=== PATIENT | male | born 1950 | race African-American/Black ===

== ENCOUNTER 2016-11-22 20:00 | Outpatient (CLI) | payer MEDICARE ==
[~2016-11-22 20:00] MED LIST: AMLO10TA; ATOR20TA66; LISI40TA; LOSA50TA6; NAPR550T2; PRED20TA PO
== END 2016-11-23 06:15 | disposition home or self-care (01) ==
LOC: SLEEP 20:00
PROVIDERS: ATTEND Family Medicine
DX: G47.33 Obstructive sleep apnea (adult) (pediatric) (principal); I10 Essential (primary) hypertension
CPT/HCPCS: 95811

== ENCOUNTER 2016-12-07 07:26 | Outpatient (CLI) | payer MEDICARE ==
[~2016-12-07] VITALS: Ht 175.3 cm; Wt 120.2 kg
[2016-12-07] MEDS ORDERED: BUPIVACAINE 0.25% 30 ML (SENSORCAINE) VIAL ONE (07:29)
[2016-12-07] MEDS ORDERED: TRIAMCINOLONE ACET (KENALOG-40) 40 MG/ML 1 ML VIAL ONE (07:29)
[2016-12-07 07:38] VITALS: BP 133/88
[2016-12-07 08:11] VITALS: BP 132/84
--- NOTE | 2016-12-07 12:40 | Pain Medicine-Procedure ---
Procedure Pre-Op/Post-Op Diagnosis Diagnosis: disc disorder with radiculopathy, lumbar Indications for Operation Low back pain Attending Surgeon Alexus Procedure Date of Service: Dec 07, 2016 Procedure: Lumbar Epidural Steroid Injection at the L2-L3 level under Fluoroscopic Guidance Procedure: Patient was identified in the holding area. After risks, benefits, and alternatives were discussed with the patient, informed consent was obtained. Patient was brought to the fluoroscopy suite and placed prone on the procedure room table. A time out was performed. Vital signs were monitored throughout the procedure. The patients low back was prepped and draped in the usual sterile fashion. The patients skin was anesthetized using 2% Lidocaine. A Tuohy needle was inserted and advanced to the L2-L3 epidural space under fluoroscopic guidance using the loss of resistance technique and intermittent projection of fluoroscopy. There was no paresthesia with needle placement. The needle position was confirmed in both the AP and lateral view. After negative aspiration 2ml of contrast was injected under live fluoroscopy which showed good spread of the contrast in the epidural space at the appropriate level, there was no intravascular or subarachnoid spread. Again, after negative aspiration for heme or CSF, 2 ml of 0.25% Bupivicaine, 2ml of preservative free normal saline, and 80mg of Kenalog was injected. The needle was removed and a sterile bandage was placed and the patient was transferred to the recovery area in stable condition. After a brief period of observation, patient was discharged to home with no new neurological deficits and no apparent complications. Complications None SABINO ESCOBEDO MD Dec 07, 2016 12:40 pm
== END 2016-12-07 08:12 | disposition home or self-care (01) ==
LOC: CARD 07:26
PROVIDERS: ATTEND Pain Medicine Pain Medicine
DX: M51.16 Intervertebral disc disorders with radiculopathy, lumbar region (principal); M96.1 Postlaminectomy syndrome, not elsewhere classified; Z79.899 Other long term (current) drug therapy
CPT/HCPCS: 62323

== ENCOUNTER 2017-05-16 12:45 | Outpatient (CLI) | payer MEDICARE ==
[~2017-05-16] VITALS: Ht 172.7 cm; Wt 115.7 kg
[2017-05-16 13:37] VITALS: BP 147/79
[2017-05-16] MEDS ORDERED: methylPREDNISolone 80 MG/ML (DEPO MEDROL) VIAL ONE (13:42)
[2017-05-16 14:01] VITALS: BP 159/99
--- NOTE | 2017-05-23 17:54 | OPERATIVE REPORT ---
DATE OF SERVICE: 05/16/2017 DIAGNOSIS: Lumbar spondylosis. PROCEDURE: Fluoroscopic-guided facet medial branch block, L2-L5, left-sided. PROCEDURE IN DETAIL: After obtaining informed consent from the patient, the patient's chart was reviewed. The patient was then brought to the procedure room and placed in prone position. Time-out was performed. The area and the left neck, upper back, lower back was prepped with antiseptic solution and under fluoroscopic guidance, the patient's L2-L5 area was examined and the facet joints listed above were identified. L2-L5 was identified under fluoroscopy. A 22-gauge 3-1/2 inch spinal needle was inserted and advanced under fluoroscopy down to the area where the pedicle and the transverse process meet and approximately 1 mL of 1% lidocaine was injected at this level. This was then repeated for the remainder of the levels stated above. Afterwards, the needle was removed. Band-Aids were applied to all sites and the patient tolerated the procedure well and was taken to the recovery area in stable condition. COMPLICATIONS: None. Job ID: [id number] DocumentID: [id number] Dictated Date: 05/21/2017 13:16:43 Pet Care Worker Date: 05/22/2017 02:11:06 Dictated By: YESSICA EDWARDS DO
== END 2017-05-16 14:03 | disposition home or self-care (01) ==
LOC: CARD 12:45
PROVIDERS: ATTEND Pain Medicine Interventional Pain Medicine
DX: M47.816 Spondylosis without myelopathy or radiculopathy, lumbar region (principal)
CPT/HCPCS: 64493; 64494; 64495

== ENCOUNTER 2017-07-11 12:34 | Outpatient (CLI) | payer MEDICARE ==
[~2017-07-11] VITALS: Ht 172.7 cm; Wt 117.0 kg
[~2017-07-11 12:34] MED LIST changes: +methylPREDNISolone 80 MG/ML (DEPO MEDROL) VIAL ONE
[2017-07-11 12:49] VITALS: BP 125/72
[2017-07-11 13:29] VITALS: BP 124/71
--- NOTE | 2017-07-15 01:14 | OPERATIVE REPORT ---
DATE OF SERVICE: 07/11/2017 DIAGNOSIS: Lumbar spondylosis, multilevel. PROCEDURE: Fluoroscopic-guided facet medial branch block. Left-sided L2, L3, L4 and L5 facet joint nerve block (left). PROCEDURE IN DETAIL: After obtaining informed consent from the patient, the patient's chart was reviewed. The patient was then brought to the procedure room and placed in prone position. Time-out was performed. The area and the left neck, upper back, lower back was prepped with antiseptic solution and under fluoroscopic guidance, the patient's left side L2, 3, 4 and 5 area was examined and the facet joints listed above were identified. Left side L2, 3, 4 and 5 was identified under fluoroscopy. A 22-gauge 3-1/2 inch spinal needle was inserted and advanced under fluoroscopy down to the area where the pedicle and the transverse process meet and approximately 1 mL of 1% lidocaine was injected at this level. This was then repeated for the remainder of the levels stated above. Afterwards, the needle was removed. Band-Aids were applied to all sites and the patient tolerated the procedure well and was taken to the recovery area in stable condition. COMPLICATIONS: None. Job ID: [id number] DocumentID: [id number] Dictated Date: 07/14/2017 20:30:41 Preschool Aide Date: 07/15/2017 01:13:20 Dictated By: YESSICA EDWARDS DO
== END 2017-07-11 13:32 | disposition home or self-care (01) ==
LOC: CARD 12:34
PROVIDERS: ATTEND Pain Medicine Interventional Pain Medicine
DX: M47.817 Spondylosis without myelopathy or radiculopathy, lumbosacral region (principal)
CPT/HCPCS: 64493; 64494

== ENCOUNTER 2017-11-28 13:02 | Outpatient (CLI) | payer MEDICARE ==
[~2017-11-28] VITALS: Ht 172.7 cm; Wt 117.9 kg
[~2017-11-28 13:02] MED LIST changes: -methylPREDNISolone 80 MG/ML (DEPO MEDROL) VIAL ONE
[2017-11-28] MEDS ORDERED: methylPREDNISolone 80 MG/ML (DEPO MEDROL) VIAL ONE (13:15)
[2017-11-28 13:58] VITALS: BP 141/94
[2017-11-28 14:18] VITALS: BP 149/82
--- NOTE | 2017-11-28 23:19 | OPERATIVE REPORT ---
DATE OF SERVICE: 11/28/2017 DIAGNOSIS: Lumbar radiculopathy. PROCEDURE: Fluoroscopic guided interlaminar epidural steroid injection. PROCEDURE IN DETAIL: After obtaining informed consent from the patient, the patient's chart was reviewed. The patient was then brought to the procedure room and placed in the prone position. A timeout was performed. The back was prepped with antiseptic solution and under fluoro guidance, the patient's lumbar spine was identified at the level of L4-L5. The L4-L5 vertebra was identified with fluoro guidance and approximately 2 mL of 1.5% lidocaine solution was used to anesthetize the skin directly down to the pedicle of the L4-L5 and under fluoroscopic guidance, the tract was anesthetized up to the interlaminar space and the ligamentum flavum. This needle was withdrawn. Then, a 20-gauge 3.5 inch Tuohy needle was then directed following the same tract that was anesthetized with the spinal needle. Using loss of resistance, the epidural space was identified and then the syringe was switched for contrast solution which was injected, approximately 1 mL. After secondary confirmation of epidural access, another syringe was placed and 80 mg of Depo-Medrol was injected. The Tuohy needle was then flushed out with approximately 2 mL of the normal saline used from the loss of resistance syringe. Band-Aids were applied to all the procedure sites. The patient tolerated the procedure well and was taken to the recovery room in stable condition. COMPLICATIONS: None. Job ID: [id number] DocumentID: [id number] Dictated Date: 11/28/2017 14:18:39 Touch Up Worker Date: 11/28/2017 23:18:24 Dictated By: YESSICA EDWARDS DO
== END 2017-11-28 14:19 | disposition home or self-care (01) ==
LOC: CARD 13:02
PROVIDERS: ATTEND Pain Medicine Interventional Pain Medicine
DX: M54.16 Radiculopathy, lumbar region (principal); Z79.899 Other long term (current) drug therapy
CPT/HCPCS: 62323

== ENCOUNTER → 2018-05-19 | Outpatient (CLI) | payer MEDICARE ==
--- NOTE | 2018-05-19 08:19 | Diagnostic Imaging Report ---
PROCEDURE: MRI lumbar spine. TECHNIQUE: Multiplanar, multisequence MRI of the lumbar spine was performed without contrast. INDICATION: Lumbar radiculopathy Comparison: 08/09/2015 Findings: The last well formed disc space labeled L5-S1 for purposes of this examination. There are bilateral pedicle screws from posterior fusion at L5-S1, as well as an interbody disc spacer. There is mild disc height loss at L4-5. The vertebral body heights are generally preserved. There are fatty degenerative endplate changes at L5-S1. No acute fracture is seen. No drainable soft tissue fluid collections are seen on this noncontrast exam. No masses are seen. There appears to be a simple cyst in the right kidney measuring approximately 3 cm. The axial images demonstrate: T11-12: Mild diffuse disc bulge and facet arthropathy. Mild spinal canal narrowing. Moderate bilateral foraminal stenosis. T12-L1: Mild facet arthropathy. No significant disc bulge. No spinal canal stenosis. No foraminal stenosis. L1-L2: No significant disc bulge, mild facet arthropathy. No spinal canal stenosis. Mild left foraminal narrowing. No right foraminal stenosis. L2-L3: Mild diffuse disc bulge, facet arthropathy. No spinal canal stenosis. Moderate right and mild left foraminal stenosis. L3-L4: Diffuse disc bulge, facet arthropathy. Moderate to severe spinal canal stenosis. Moderate right and moderate to severe left foraminal stenosis. This appears overall stable since 2014. L4-L5: Diffuse disc bulge, facet arthropathy. Severe spinal canal stenosis with effacement of the lateral recesses. Severe left foraminal stenosis. Moderate right foraminal stenosis. This appears stable since 2014. L5-S1: No spinal canal stenosis. Hardware artifact resulting in suboptimal evaluation, however there may be severe left and moderate right foraminal stenosis. This appears stable compared to 2014. IMPRESSION: 1. Multilevel degenerative changes, as described above, with multilevel spinal canal or foraminal stenosis. There is severe spinal canal stenosis and left foraminal stenosis at L4-5. Overall findings appear similar to 2014. 2. Posterior fusion at L5-S1 without fluid collection seen. Dictated by: Dictated on workstation # [id number]
== END ==
LOC: RAD 07:16
PROVIDERS: ATTEND Pain Medicine Interventional Pain Medicine
DX: M48.061 Spinal stenosis, lumbar region without neurogenic claudication (principal); M51.16 Intervertebral disc disorders with radiculopathy, lumbar region; M46.86 Other specified inflammatory spondylopathies, lumbar region; M99.73 Connective tissue and disc stenosis of intervertebral foramina of lumbar region; M47.22 Other spondylosis with radiculopathy, cervical region; Z98.1 Arthrodesis status
CPT/HCPCS: 72148

== ENCOUNTER → 2018-10-03 | Outpatient (CLI) | payer MEDICARE ==
[2018-10-03 10:55] LABS: ABSOLUTE RETIC # 56 10e9/L (24-90); BASOPHILS % (AUTO) 0 % (0-10); EOSINOPHILS % (AUTO) 1 % (0-10); HEMATOCRIT 46 % (40-54); HEMOGLOBIN 14.8 G/DL (13.3-17.7); LYMPHOCYTES # (AUTO) 2.3 X 10^3 (1.0-4.0); LYMPHOCYTES % (AUTO) 33 % (12-44); MEAN CORPUSCULAR HEMOGLOBIN 30 PG (25-34); MEAN CORPUSCULAR HGB CONC 32 G/DL (32-36); MEAN CORPUSCULAR VOLUME 91 FL (80-99); MEAN PLATELET VOLUME 10.2 FL (7.4-10.4); MONOCYTES # (AUTO) 0.7 X 10^3 (0.0-1.0); MONOCYTES % (AUTO) 9 % (0-12); NEUTROPHILS # (AUTO) 4.1 X 10^3 (1.8-7.8); NEUTROPHILS % (AUTO) 57 % (42-75); PLATELET COUNT 265 10^3/uL (130-400); RED CELL DISTRIBUTION WIDTH 14.1 % (10.0-14.5); RETICULOCYTE % 1.11 % (0.50-2.40); WHITE BLOOD COUNT 7.1 10^3/uL (4.3-11.0)
[2018-10-03 11:32] LABS: BAND NEUTROPHILS 0 %; BASOPHILS % (MANUAL) 0 %; EOSINOPHILS % (MANUAL) 1 %; LYMPHOCYTES % (MANUAL) 39 %; MONOCYTES % (MANUAL) 11 %; NEUTROPHILS % (MANUAL) 49 %; RBC MORPH NORMAL
== END ==
LOC: LAB 10:37
PROVIDERS: ATTEND Nurse Practitioner Family
DX: D72.819 Decreased white blood cell count, unspecified (principal)
CPT/HCPCS: 36415; 85007; 85027; 85045

== ENCOUNTER 2018-12-09 06:52 | Outpatient (CLI) | payer MEDICARE ==
[~2018-12-09] VITALS: Ht 172.7 cm; Wt 117.9 kg
[2018-12-10] MEDS ORDERED: LOSA1TAB26 PO (09:21)
[2018-12-10] MEDS ORDERED: ATOR10TA66 PO (09:21)
[2018-12-10] MEDS ORDERED: AMLO10TA7 PO (09:21)
== END 2018-12-10 09:25 ==
LOC: PREOP 06:52
PROVIDERS: ATTEND Specialist
DX: Z01.818 Encounter for other preprocedural examination (principal)

== ENCOUNTER 2018-12-12 06:47 | Day surgery (SDC) | payer MEDICARE ==
[~2018-12-12] VITALS: Ht 172.7 cm; Wt 117.9 kg
[~2018-12-12 06:47] MED LIST changes: +AMLO10TA7 PO; +ATOR10TA66 PO; +LOSA1TAB26 PO
--- OUTSIDE RECORDS SUMMARY | 2018-12-12 06:50 | XMS REPORT | Clinical Summary ---
Author Author [facility] Organization [facility] Address Unknown Phone Unavailable Care Team Providers Care Laborer [employer] Name Role Phone Jorge Briggs DO Unavailable Lima Menezes MD Unavailable Vanessa Prieto MD PCP Monserrat Terry MD Unavailable Source Comments Some departments are not documenting in the electronic medical record. If you do not see the information that you expected, contact Release of Information in the Health Information Management department at [phone] for further assistance in locating additional records.[facility] Allergies No Known Allergies Medications End Date Status Medication Sig Dispensed Refills Start Date Active cholecalciferol(+) Take 1 Tab by 0 (VITAMIN D-3) 2,000 unit mouth daily. tablet Active lisinopril (PRINIVIL, Take 40 mg by 0 ZESTRIL) 40 mg tablet mouth twice daily. Active amLODIPine (NORVASC) 10 Take 1 Tab by 90 Tab 3 06/01/201 mg tablet mouth daily. 3 Active losartan(+) (COZAAR) 100 Take 1 Tab by 30 Tab 5 06/17/201 mg tablet mouth daily. 3 Active Problems Not on file Family History Medical History Relation Name Comments Cancer Mother Non-Hodgkins Other Sister Proteinuria Relation Name Status Comments Mother Sister Social History Date Tobacco Use Types Packs/Day Years Used Quit: 08/12/1984 Former Smoker Cigarettes 1 10 Smokeless Tobacco: Former User Alcohol Use Drinks/Week oz/Week Comments Yes 0.0 1 drink per month Sex Assigned at Date Recorded Not on file Industry Job Start Date Occupation Not on file Not on file Not on file Travel End Travel History Travel Start No recent travel history available. Last Filed Vital Signs Time Taken Vital Sign Reading 02/23/2013 3:29 PM CDT Blood Pressure 119/74 02/23/2013 3:29 PM CDT Pulse 88 02/23/2013 3:23 PM CDT Temperature 36.2 C (97.1 F) - Respiratory Rate - 01/11/2011 7:26 AM CDT Oxygen Saturation 98% - Inhaled Oxygen - Concentration 02/23/2013 3:23 PM CDT Weight 119.7 kg (264 lb) 02/23/2013 3:23 PM CDT Height 175.3 cm (5' 9") 02/23/2013 3:23 PM CDT Body Mass Index 38.99 Plan of Treatment Health Maintenance Due Date Last Done Comments PHYSICAL (COMPREHENSIVE) 1957 EXAM DTAP/TDAP VACCINES (1 - 1968 Tdap) COLORECTAL CANCER 2000 SCREENING SHINGLES RECOMBINANT 2000 VACCINE (1 of 2) ABDOMINAL AORTIC ANEURYSM 2015 SCREENING PNEUMONIA (PCV13/PPSV23) 2015 VACCINES (1 of 2 - PCV13) INFLUENZA VACCINE 05/12/2019 HEPATITIS C SCREENING Completed 12/26/2010, 12/26/2010 Results Not on filefrom Last 3 Months Advance Directives For more information, please contact: [facility] [address] [place] [address] Date Inactivated Comments Code Status Date Activated 01/15/2011 6:03 AM Full Code 01/10/2011 3:02 PM Provider has discussed Code Status Yes w/Patient or Family?
--- OUTSIDE RECORDS SUMMARY | 2018-12-12 06:52 | XMS REPORT | CCD ---
Author Author [facility] Organization [facility] Address [address] [place] [address] Phone Care Team Providers Care Glaze Wiper Name Role Phone PP Unavailable CCM Unavailable Summary Purpose Interface Exchange Insurance Providers Payer name Policy type / Coverage type Covered green party ID Effective Begin Date Effective End Date WPS Medicare Part B Medicare Part B [id number] Unknown AARP Medicare Part B [id number] Unknown Family history Mother Diagnosis Age At Onset Diabetes mellitus Type 2 Unknown Hypertension Unknown lymphoma Unknown Father Diagnosis Age At Onset Hypertension Unknown Uncle Diagnosis Age At Onset Cancer Unknown Aunt Diagnosis Age At Onset Cancer Unknown Social History Social History Element Codes Description Effective Dates Marital status Unknown [place] 10/29/2016 Number of children Unknown 5 05/16/2015 Employment Unknown Retired 05/16/2015 Allergies, Adverse Reactions, Alerts Substance Reaction Codes Entered Date Inactivated Date Status * NO KNOWN DRUG ALLERGIES Unknown 05/16/2015 No Inactive Date Active Past Medical History Illness Codes Condition Status Onset Date Resolved Date Other obesity due to excess calories ICD-9: 278.00 ICD-10: E66.09 Active 02/28/2017 Unknown Essential (primary) hypertension ICD-9: 401.1 ICD-10: I10 Active 10/29/2016 Unknown Obstructive sleep apnea (adult) (pediatric) ICD-9: 327.23 ICD-10: G47.33 Active 10/29/2016 Unknown Encounter for immunization ICD-9: V04.81 ICD-10: Z23 Active 05/15/2015 Unknown Body mass index (BMI) 38.0-38.9, adult ICD-9: V85.38 ICD-10: Z68.38 Active 04/03/2017 Unknown Sleep related hypoventilation in conditions classified elsewhere ICD-9: 327.26 ICD-10: G47.36 Active 10/29/2016 Unknown Encounter for general adult medical examination without abnormal findings ICD-9: V70.9 ICD-10: Z00.00 Active 05/15/2015 Unknown Encounter for general adult medical examination with abnormal findings ICD-9: V70.0 ICD-10: Z00.01 Active 10/31/2016 Unknown Mixed hyperlipidemia ICD-9: 272.2 ICD-10: E78.2 Active 10/29/2016 Unknown Periodic limb movement disorder ICD-9: 327.51 ICD-10: G47.61 Active 10/29/2016 Unknown Body mass index (BMI) 40.0-44.9, adult ICD-9: V85.41 ICD-10: Z68.41 Active 12/21/2015 Unknown Hypertensive chronic kidney disease with stage 1 through stage 4 chronic kidney disease, or unspecified chronic kidney disease ICD-9: 403.90 ICD-10: I12.9 Active 12/21/2015 Unknown Low back pain ICD-9: 724.2 ICD-10: M54.5 Active 11/07/2015 Unknown Bilateral primary osteoarthritis of knee ICD-9: 715.16 ICD-10: M17.0 Active 08/31/2015 Unknown Hyperglycemia, unspecified ICD-9: 790.29 ICD-10: R73.9 Active 05/15/2015 Unknown Problems Condition Codes Effective Dates Condition Status Other obesity due to excess calories ICD-9: 278.00 ICD-10: E66.09 02/28/2017 Active Essential (primary) hypertension ICD-9: 401.1 ICD-10: I10 10/29/2016 Active Obstructive sleep apnea (adult) (pediatric) ICD-9: 327.23 ICD-10: G47.33 10/29/2016 Active Encounter for immunization ICD-9: V04.81 ICD-10: Z23 05/15/2015 Active Body mass index (BMI) 38.0-38.9, adult ICD-9: V85.38 ICD-10: Z68.38 04/03/2017 Active Sleep related hypoventilation in conditions classified elsewhere ICD-9: 327.26 ICD-10: G47.36 10/29/2016 Active Encounter for general adult medical examination without abnormal findings ICD-9: V70.9 ICD-10: Z00.00 05/15/2015 Active Encounter for general adult medical examination with abnormal findings ICD-9: V70.0 ICD-10: Z00.01 10/31/2016 Active Mixed hyperlipidemia ICD-9: 272.2 ICD-10: E78.2 10/29/2016 Active Periodic limb movement disorder ICD-9: 327.51 ICD-10: G47.61 10/29/2016 Active Body mass index (BMI) 40.0-44.9, adult ICD-9: V85.41 ICD-10: Z68.41 12/21/2015 Active Hypertensive chronic kidney disease with stage 1 through stage 4 chronic kidney disease, or unspecified chronic kidney disease ICD-9: 403.90 ICD-10: I12.9 12/21/2015 Active Low back pain ICD-9: 724.2 ICD-10: M54.5 11/07/2015 Active Bilateral primary osteoarthritis of knee ICD-9: 715.16 ICD-10: M17.0 08/31/2015 Active Hyperglycemia, unspecified ICD-9: 790.29 ICD-10: R73.9 05/15/2015 Active Medications Medication Codes Instructions Start Date Stop Date Status Fill Instructions phentermine 37.5 mg tablet RxNorm: 596372 1 Tablet(s) PO daily 09/23/2018 10/22/2018 Active amlodipine 10 mg tablet RxNorm: 686589 Tablet(s) TAKE ONE TABLET BY MOUTH DAILY 06/16/2018 06/10/2019 Active Lipitor 10 mg tablet RxNorm: 253885 Tablet(s) TAKE ONE TABLET BY MOUTH DAILY 06/16/2018 06/10/2019 Active losartan 100 mg-hydrochlorothiazide 12.5 mg tablet RxNorm: 663759 1 Tablet(s) PO daily 06/16/2018 06/10/2019 Active phentermine 37.5 mg tablet RxNorm: 022393 1 Tablet(s) PO daily 06/16/2018 08/14/2018 Inactive amlodipine 10 mg tablet RxNorm: 881745 Tablet(s) TAKE ONE TABLET BY MOUTH DAILY 03/13/2018 06/15/2018 Inactive amlodipine 10 mg tablet RxNorm: 838849 Tablet(s) TAKE ONE TABLET BY MOUTH DAILY 08/21/2017 03/12/2018 Inactive Lipitor 10 mg tablet RxNorm: 378725 Tablet(s) TAKE ONE TABLET BY MOUTH DAILY 07/17/2017 06/15/2018 Inactive phentermine 37.5 mg tablet RxNorm: 845035 1 Tablet(s) PO daily 07/02/2017 08/30/2017 Inactive celecoxib 200 mg capsule RxNorm: 942549 1 Capsule(s) PO BID 07/31/2017 Inactive Lipitor 10 mg tablet RxNorm: 970209 TAKE ONE TABLET BY MOUTH DAILY 06/05/2017 07/16/2017 Inactive losartan 100 mg-hydrochlorothiazide 12.5 mg tablet RxNorm: 535125 1 Tablet(s) PO daily 06/04/2017 05/29/2018 Inactive hydrochlorothiazide 25 mg tablet RxNorm: 120771 1/2 Tablet(s) PO daily take with the losartan 100mg tablet 06/04/201707/03 Inactive losartan 100 mg tablet RxNorm: 194714 TAKE ONE TABLET BY MOUTH DAILY 04/16/2017 06/03/2017 Inactive phentermine 37.5 mg tablet RxNorm: 589376 1 Tablet(s) PO daily 04/03/2017 05/02/2017 Inactive Lipitor 10 mg tablet RxNorm: 054152 TAKE ONE TABLET BY MOUTH DAILY 03/04/2017 06/04/2017 Inactive phentermine 37.5 mg tablet RxNorm: 724255 1 Tablet(s) PO daily 02/28/2017 03/29/2017 Inactive losartan 100 mg tablet RxNorm: 822394 1 Tablet(s) daily TAKE ONE TABLET BY MOUTH DAILY 02/28/2017 04/15/2017 Inactive Lipitor 10 mg tablet RxNorm: 107806 TAKE ONE TABLET BY MOUTH DAILY 11/19/2016 02/16/2017 Inactive Lipitor 10 mg tablet RxNorm: 122341 Tablet(s) TAKE ONE TABLET BY MOUTH DAILY 10/29/2016 11/18/2016 Inactive amlodipine 10 mg tablet RxNorm: 169668 TAKE ONE TABLET BY MOUTH DAILY 08/14/2016 12/11/2016 Inactive amlodipine 10 mg tablet RxNorm: 047968 Tablet(s) TAKE ONE TABLET BY MOUTH DAILY 08/14/2016 08/13/2016 Inactive Lipitor 10 mg tablet RxNorm: 474851 TAKE ONE TABLET BY MOUTH DAILY 07/03/2016 10/28/2016 Inactive losartan 100 mg tablet RxNorm: 676279 TAKE ONE TABLET BY MOUTH DAILY 05/15/2016 10/30/2016 Inactive Lipitor 10 mg tablet RxNorm: 070142 TAKE ONE TABLET BY MOUTH DAILY 03/19/2016 06/16/2016 Inactive amlodipine 10 mg tablet RxNorm: 795666 TAKE ONE TABLET BY MOUTH DAILY 03/19/2016 06/15/2016 Inactive Belviq 10 mg tablet RxNorm: 8830502 1 Tablet(s) PO BID 201512/21/2015 Inactive Lipitor 10 mg tablet RxNorm: 702384 1 Tablet(s) PO daily 201502/16/2016 Inactive Celebrex 200 mg capsule RxNorm: 748033 1 Capsule(s) PO daily 10/28/2016 Inactive generic ok Celebrex 200 mg capsule RxNorm: 605732 1 Capsule(s) PO daily 09/04/2015 Inactive celecoxib 200 mg capsule RxNorm: 535867 1 Capsule(s) PO daily 07/25/2015 08/31/2015 Inactive Lipitor 10 mg tablet RxNorm: 475634 1 Tablet(s) PO daily 201409/16/2015 Inactive Lipitor 10 mg tablet RxNorm: 141965 1 Tablet(s) PO daily 201405/19/2015 Inactive losartan 100 mg tablet RxNorm: 544539 1 Tablet(s) PO daily 12/201405/15/2015 Inactive lisinopril 20 mg tablet RxNorm: 713944 1 Tablet(s) PO daily 12/201407/14/2015 Inactive losartan 50 mg tablet RxNorm: 740694 1 Tablet(s) PO daily 201405/16/2015 Inactive losartan 100 mg tablet RxNorm: 480216 1 Tablet(s) PO daily 12/201405/09/2016 Inactive this ia a new RX -replaces with 50mg losartan amlodipine 10 mg tablet RxNorm: 316343 1 Tablet(s) PO daily 09/201401/07/2016 Inactive losartan 50 mg tablet RxNorm: 708138 1 Tablet(s) PO daily 201405/15/2015 Inactive lisinopril 40 mg tablet RxNorm: 896361 1 Tablet(s) PO daily 09/201405/15/2015 Inactive amlodipine 10 mg tablet RxNorm: 208773 1 Tablet(s) PO daily 09/201405/12/2015 Inactive lisinopril 40 mg tablet RxNorm: 519043 1 Tablet(s) PO daily 09/201405/12/2015 Inactive losartan 50 mg tablet RxNorm: 254534 1 Tablet(s) PO daily 201405/12/2015 Inactive gabapentin 100 mg capsule RxNorm: 428759 1 Capsule(s) PO TID No Start Date 10/28/2016 Inactive Medication Administered No Medication Administered data Immunizations Vaccine Codes Date Status Influenza CVX: 141 06/11/2018 completed Influenza CVX: 141 06/04/2017 completed Influenza CVX: 141 05/16/2015 completed Assessments Condition Codes Effective Dates Other obesity due to excess calories ICD-10: E66.09 ICD-9: 278.00 09/23/2018 Essential (primary) hypertension ICD-10: I10 ICD-9: 401.1 06/16/2018 Obstructive sleep apnea (adult) (pediatric) ICD-10: G47.33 ICD-9: 327.23 07/02/2017 Encounter for immunization ICD-10: Z23 ICD-9: V04.81 06/04/2017 Body mass index (BMI) 38.0-38.9, adult ICD-10: Z68.38 ICD-9: V85.38 04/03/2017 Sleep related hypoventilation in conditions classified elsewhere ICD-10: G47.36 ICD-9: 327.26 02/28/2017 Encounter for general adult medical examination with abnormal findings ICD-10: Z00.01 ICD-9: V70.0 10/31/2016 Mixed hyperlipidemia ICD-10: E78.2 ICD-9: 272.2 10/29/2016 Periodic limb movement disorder ICD-10: G47.61 ICD-9: 327.51 10/29/2016 Hypertensive chronic kidney disease with stage 1 through stage 4 chronic kidney disease, or unspecified chronic kidney disease ICD-10 : I12.9 ICD-9: 403.90 12/22/2015 Body mass index (BMI) 40.0-44.9, adult ICD-10: Z68.41 ICD-9: V85.41 12/22/2015 Low back pain ICD-10: M54.5 ICD-9: 724.2 11/08/2015 Bilateral primary osteoarthritis of knee ICD-10: M17.0 ICD-9: 715.16 09/01/2015 Encounter for general adult medical examination without abnormal findings ICD-10: Z00.00 ICD-9: V70.9 05/16/2015 Hyperglycemia, unspecified ICD-10: R73.9 ICD-9: 790.29 05/16/2015 Reason For Visit Reason For Visit Effective Dates Notes hypertension 06/16/2018 hypertension 10/23/2017 hypertension 07/02/2017 left side torso hypertension 06/04/2017 hypertension 02/28/2017 Annual Medicare Wellness Exam 10/31/2016 hypertension 10/29/2016 hypertension 12/22/2015 hypertension 11/08/2015 hypertension 09/01/2015 hives (urticaria) 07/25/2015 hives (urticaria) 05/16/2015 Results Observation Observation Code Item Item Code Result Date Cbc With Differential Ord2 WBC 3.48 K/ul 09/23/2018 Cbc With Differential Ord2 RBC 4.80 M/ul 09/23/2018 Cbc With Differential Ord2 HGB 14.8 g/dl 09/23/2018 Cbc With Differential Ord2 HCT 44.6 % 09/23/2018 Cbc With Differential Ord2 Neut% 40.0 % 09/23/2018 Cbc With Differential Ord2 MCV 92.9 fl 09/23/2018 Cbc With Differential Ord2 Lymph% 36.2 % 09/23/2018 Cbc With Differential Ord2 MCH 30.8 pg 09/23/2018 Cbc With Differential Ord2 [place]% 22.1 % 09/23/2018 Cbc With Differential Ord2 MCHC 33.2 pg 09/23/2018 Cbc With Differential Ord2 Eos% 1.7 % 09/23/2018 Cbc With Differential Ord2 PLT 200 K/ul 09/23/2018 Cbc With Differential Ord2 Baso% 0.0 % 09/23/2018 Cbc With Differential Ord2 RDW 14.8 % 09/23/2018 Cbc With Differential Ord2 Neut ABS# 1.39 K/ul 09/23/2018 Cbc With Differential Ord2 Lymph ABS# 1.26 K/ul 09/23/2018 Cbc With Differential Ord2 [place] ABS# 0.8 K/ul 09/23/2018 Cbc With Differential Ord2 Eos ABS# 0.1 K/ul 09/23/2018 Cbc With Differential Ord2 Baso ABS# 0.0 K/ul 09/23/2018 Cbc With Differential Ord2 WBC 4.24 K/ul 11/13/2016 Cbc With Differential Ord2 RBC 5.05 M/ul 11/13/2016 Cbc With Differential Ord2 HGB 15.1 g/dl 11/13/2016 Cbc With Differential Ord2 HCT 45.9 % 11/13/2016 Cbc With Differential Ord2 Neut% 38.9 % 11/13/2016 Cbc With Differential Ord2 MCV 90.9 fl 11/13/2016 Cbc With Differential Ord2 Lymph% 44.1 % 11/13/2016 Cbc With Differential Ord2 MCH 29.9 pg 11/13/2016 Cbc With Differential Ord2 [place]% 14.9 % 11/13/2016 Cbc With Differential Ord2 MCHC 32.9 pg 11/13/2016 Cbc With Differential Ord2 Eos% 1.9 % 11/13/2016 Cbc With Differential Ord2 PLT 202 K/ul 11/13/2016 Cbc With Differential Ord2 Baso% 0.2 % 11/13/2016 Cbc With Differential Ord2 RDW 14.6 % 11/13/2016 Cbc With Differential Ord2 Neut ABS# 1.65 K/ul 11/13/2016 Cbc With Differential Ord2 Lymph ABS# 1.87 K/ul 11/13/2016 Cbc With Differential Ord2 [place] ABS# 0.6 K/ul 11/13/2016 Cbc With Differential Ord2 Eos ABS# 0.1 K/ul 11/13/2016 Cbc With Differential Ord2 Baso ABS# 0.0 K/ul 11/13/2016 Comp Metabolic Rci569 NA 140 mEq/L 11/13/2016 Comp Metabolic Hzk214 K 4.2 mEq/L 11/13/2016 Comp Metabolic Ogw899 CL 104 mEq/L 11/13/2016 Comp Metabolic Quv758 CO2 27.0 mEq/L 11/13/2016 Comp Metabolic Vls664 ANION GAP 13 11/13/2016 Comp Metabolic Jmg130 GLUCOSE 102 mg/dL 11/13/2016 Comp Metabolic Him803 Creat 1.1 mg/dL 11/13/2016 Comp Metabolic Zmc514 eGFR 74 ml/min/1.73m2 11/13/2016 Comp Metabolic Sde787 BUN 21 mg/dL 11/13/2016 Comp Metabolic Rpc414 B/C Ratio 19.8 Ratio 11/13/2016 Comp Metabolic Uwj960 CALCIUM 9.4 mg/dL 11/13/2016 Comp Metabolic Ywf620 ALK PHOS 122 U/L 11/13/2016 Comp Metabolic Crv945 AST(SGOT) 23 U/L 11/13/2016 Comp Metabolic Qcx639 ALT(SGPT) 29 U/L 11/13/2016 Comp Metabolic Vgr364 BILI T 0.6 mg/dL 11/13/2016 Comp Metabolic Twu529 ALBUMIN 4.2 g/dL 11/13/2016 Comp Metabolic Jrw628 TPRO 7.4 g/dL 11/13/2016 Comp Metabolic Xko987 GLOB 3.2 g/dL 11/13/2016 Comp Metabolic Wos409 A/G Ratio 1.3 Ratio 11/13/2016 Comp Metabolic Tsq118 Osmo 283 mOsmo 11/13/2016 Lipid Ord30 CHOL 166 mg/dL 11/13/2016 Lipid Ord30 HDL 45.0 mg/dl 11/13/2016 Lipid Ord30 TRIG 100 mg/dL 11/13/2016 Lipid Ord30 LDL 101 mg/dL 11/13/2016 Lipid Ord30 C/HDL 3.7 Ratio 11/13/2016 Total Psa Ord10 PSA 0.39 ng/mL 11/13/2016 Tsh Ord6 hTSH II 2.07 uIU/mL 11/13/2016 Comp Metabolic Sdy814 NA 136 mEq/L 05/16/2015 Comp Metabolic Zif196 K 4.4 mEq/L 05/16/2015 Comp Metabolic Owv962 CL 102 mEq/L 05/16/2015 Comp Metabolic Hfz110 CO2 26.0 mEq/L 05/16/2015 Comp Metabolic Lzs054 ANION GAP 12 05/16/2015 Comp Metabolic Oip848 GLUCOSE 92 mg/dL 05/16/2015 Comp Metabolic Zbo827 Creat 1.4 mg/dL 05/16/2015 Comp Metabolic Tat583 eGFR 53 ml/min/1.73m2 05/16/2015 Comp Metabolic Zwe247 BUN 20 mg/dL 05/16/2015 Comp Metabolic Dvj271 B/C Ratio 14.1 Ratio 05/16/2015 Comp Metabolic Drm972 CALCIUM 9.8 mg/dL 05/16/2015 Comp Metabolic Hdm040 ALK PHOS 102 U/L 05/16/2015 Comp Metabolic Art851 AST(SGOT) 21 U/L 05/16/2015 Comp Metabolic Arj295 ALT(SGPT) 25 U/L 05/16/2015 Comp Metabolic Hjv122 BILI T 0.6 mg/dL 05/16/2015 Comp Metabolic Ich864 ALBUMIN 4.5 g/dL 05/16/2015 Comp Metabolic Ffz758 TPRO 7.7 g/dL 05/16/2015 Comp Metabolic Bpr822 GLOB 3.2 g/dL 05/16/2015 Comp Metabolic Nzk704 A/G Ratio 1.4 Ratio 05/16/2015 Comp Metabolic Fwy680 Osmo 274 mOsmo 05/16/2015 Cbc With Differential Ord2 WBC 4.0 K/uL 05/16/2015 Cbc With Differential Ord2 LYM 1.6 K/uL 05/16/2015 Cbc With Differential Ord2 LYM% 39.3 % 05/16/2015 Cbc With Differential Ord2 NEUT/GRAN 2.0 K/uL 05/16/2015 Cbc With Differential Ord2 NEUT/GRAN % 51.2 % 05/16/2015 Cbc With Differential Ord2 MID 0.4 K/uL 05/16/2015 Cbc With Differential Ord2 MID% 9.5 % 05/16/2015 Cbc With Differential Ord2 RBC 5.12 M/uL 05/16/2015 Cbc With Differential Ord2 HGB 15.1 g/dL 05/16/2015 Cbc With Differential Ord2 HCT 47.7 % 05/16/2015 Cbc With Differential Ord2 MCV 93 fL 05/16/2015 Cbc With Differential Ord2 MCH 30 pg 05/16/2015 Cbc With Differential Ord2 MCHC 32 g/dL 05/16/2015 Cbc With Differential Ord2 PLT 210 K/uL 05/16/2015 Cbc With Differential Ord2 RDW 14.7 % 05/16/2015 %Hba1C Tkd624 % HbA1c 45860-5 6.0 % 05/16/2015 %Hba1C Edg514 Gluc Ave 126 mg/dL 05/16/2015 Tsh Ord6 hTSH II 2.15 uIU/mL 05/16/2015 Lipid Ord30 CHOL 245 mg/dL 05/16/2015 Lipid Ord30 HDL 48.0 mg/dl 05/16/2015 Lipid Ord30 TRIG 144 mg/dL 05/16/2015 Lipid Ord30 LDL 168 mg/dL 05/16/2015 Lipid Ord30 C/HDL 5.1 Ratio 05/16/2015 Review of Systems System Result Effective Dates Constitutional No recent illness 2017 Constitutional No chills 06/16/2018 Gastrointestinal No abdominal pain 2017 Gastrointestinal No constipation 2017 Gastrointestinal No diarrhea 06/16/2018 Gastrointestinal No gastroesophageal reflux 06/16/2018 Gastrointestinal No nausea 06/16/2018 Gastrointestinal No vomiting 06/16/2018 Constitutional No diaphoresis 06/16/2018 Constitutional No fever 06/16/2018 Eyes No eye erythema 06/16/2018 Ears/Nose/Throat/Neck No nasal discharge 06/16/2018 Ears/Nose/Throat/Neck No nasal allergies 06/16/2018 Cardiovascular No chest pain/pressure 12/2017 Cardiovascular No dyspnea 06/16/2018 Respiratory No cough 06/16/2018 Respiratory No chest congestion 2017 Musculoskeletal No joint complaint 2017 Neurologic No alteration of consciousness 06/16/2018 Neurologic No mental status change 2017 Constitutional No recent illness 2017 Constitutional No chills 10/23/2017 Constitutional fatigue 10/23/2017 Constitutional No fever 10/23/2017 Constitutional No insomnia 10/23/2017 Constitutional No malaise 10/23/2017 Ears/Nose/Throat/Neck No dental pain Ears/Nose/Throat/Neck No dizziness 2017 Ears/Nose/Throat/Neck No dysphagia 2017 Ears/Nose/Throat/Neck No headache 2017 Ears/Nose/Throat/Neck No hearing loss Ears/Nose/Throat/Neck No nasal allergies 10/23/2017 Ears/Nose/Throat/Neck No sore throat Ears/Nose/Throat/Neck No postnasal drip 10/23/2017 Ears/Nose/Throat/Neck No sinus congestion 10/23/2017 Cardiovascular No chest pain/pressure Cardiovascular No dyspnea 10/23/2017 Cardiovascular No edema 10/23/2017 Cardiovascular No exercise intolerance Cardiovascular No fatigue 10/23/2017 Cardiovascular hypertension 10/23/2017 Cardiovascular No near-syncope/dizziness 10/23/2017 Respiratory No chest tightness 2017 Respiratory No cough 10/23/2017 Respiratory daytime hypersomnolence 10/23 Respiratory No dyspnea 10/23/2017 Respiratory No pedal edema 10/23/2017 Gastrointestinal No abdominal pain 2017 Gastrointestinal No constipation 2017 Gastrointestinal No diarrhea 10/23/2017 Gastrointestinal No gastroesophageal reflux 10/23/2017 Gastrointestinal No nausea 10/23/2017 Gastrointestinal No vomiting 10/23/2017 Genitourinary/Nephrology No dysuria 10/23 Genitourinary/Nephrology No nocturia Genitourinary/Nephrology No urinary incontinence 10/23/2017 Musculoskeletal stiffness 10/23/2017 Musculoskeletal No swelling 10/23/2017 Musculoskeletal back pain 10/23/2017 Musculoskeletal No muscle weakness 2017 Musculoskeletal No myalgias 10/23/2017 Dermatologic No rash 10/23/2017 Dermatologic No sores 10/23/2017 Neurologic No dizziness 10/23/2017 Neurologic No headache 10/23/2017 Neurologic No neck pain 10/23/2017 Neurologic No syncope 10/23/2017 Psychiatric No anxiety 10/23/2017 Psychiatric No depression 10/23/2017 Constitutional No recent illness 2016 Constitutional No chills 07/02/2017 Constitutional fatigue 07/02/2017 Constitutional No fever 07/02/2017 Constitutional No insomnia 07/02/2017 Constitutional No malaise 07/02/2017 Ears/Nose/Throat/Neck No dental pain Ears/Nose/Throat/Neck No dizziness 2016 Ears/Nose/Throat/Neck No dysphagia 2016 Ears/Nose/Throat/Neck No headache 2016 Ears/Nose/Throat/Neck No hearing loss Ears/Nose/Throat/Neck No nasal allergies 07/02/2017 Ears/Nose/Throat/Neck No sore throat Ears/Nose/Throat/Neck No postnasal drip 07/02/2017 Ears/Nose/Throat/Neck No sinus congestion 07/02/2017 Cardiovascular No chest pain/pressure Cardiovascular No dyspnea 07/02/2017 Cardiovascular No edema 07/02/2017 Cardiovascular No exercise intolerance Cardiovascular No fatigue 07/02/2017 Cardiovascular hypertension 07/02/2017 Cardiovascular No near-syncope/dizziness 07/02/2017 Respiratory No chest tightness 2016 Respiratory No cough 07/02/2017 Respiratory daytime hypersomnolence 07/02 Respiratory No dyspnea 07/02/2017 Respiratory No pedal edema 07/02/2017 Gastrointestinal No abdominal pain 2016 Gastrointestinal No constipation 2016 Gastrointestinal No diarrhea 07/02/2017 Gastrointestinal No gastroesophageal reflux 07/02/2017 Gastrointestinal No nausea 07/02/2017 Gastrointestinal No vomiting 07/02/2017 Genitourinary/Nephrology No dysuria 07/02 Genitourinary/Nephrology No nocturia Genitourinary/Nephrology No urinary incontinence 07/02/2017 Musculoskeletal stiffness 07/02/2017 Musculoskeletal No swelling 07/02/2017 Musculoskeletal back pain 07/02/2017 Musculoskeletal No muscle weakness 2016 Musculoskeletal No myalgias 07/02/2017 Dermatologic No rash 07/02/2017 Dermatologic No sores 07/02/2017 Neurologic No dizziness 07/02/2017 Neurologic No headache 07/02/2017 Neurologic No neck pain 07/02/2017 Neurologic No syncope 07/02/2017 Psychiatric No anxiety 07/02/2017 Psychiatric No depression 07/02/2017 Dermatologic mole change 07/02/2017 Constitutional No recent illness 2016 Constitutional No chills 06/04/2017 Constitutional fatigue 06/04/2017 Constitutional No fever 06/04/2017 Constitutional No insomnia 06/04/2017 Constitutional No malaise 06/04/2017 Ears/Nose/Throat/Neck No dental pain Ears/Nose/Throat/Neck No dizziness 2016 Ears/Nose/Throat/Neck No dysphagia 2016 Ears/Nose/Throat/Neck No headache 2016 Ears/Nose/Throat/Neck No hearing loss Ears/Nose/Throat/Neck No nasal allergies 06/04/2017 Ears/Nose/Throat/Neck No sore throat Ears/Nose/Throat/Neck No postnasal drip 06/04/2017 Ears/Nose/Throat/Neck No sinus congestion 06/04/2017 Cardiovascular No chest pain/pressure Cardiovascular No dyspnea 06/04/2017 Cardiovascular No edema 06/04/2017 Cardiovascular No exercise intolerance Cardiovascular No fatigue 06/04/2017 Cardiovascular hypertension 06/04/2017 Cardiovascular No near-syncope/dizziness 06/04/2017 Respiratory No chest tightness 2016 Respiratory No cough 06/04/2017 Respiratory daytime hypersomnolence 06/04 Respiratory No dyspnea 06/04/2017 Respiratory No pedal edema 06/04/2017 Gastrointestinal No abdominal pain 2016 Gastrointestinal No constipation 2016 Gastrointestinal No diarrhea 06/04/2017 Gastrointestinal No gastroesophageal reflux 06/04/2017 Gastrointestinal No nausea 06/04/2017 Gastrointestinal No vomiting 06/04/2017 Genitourinary/Nephrology No dysuria 06/04 Genitourinary/Nephrology No nocturia Genitourinary/Nephrology No urinary incontinence 06/04/2017 Musculoskeletal stiffness 06/04/2017 Musculoskeletal No swelling 06/04/2017 Musculoskeletal back pain 06/04/2017 Musculoskeletal No muscle weakness 2016 Musculoskeletal No myalgias 06/04/2017 Dermatologic No rash 06/04/2017 Dermatologic No sores 06/04/2017 Neurologic No dizziness 06/04/2017 Neurologic No headache 06/04/2017 Neurologic No neck pain 06/04/2017 Neurologic No syncope 06/04/2017 Psychiatric No anxiety 06/04/2017 Psychiatric No depression 06/04/2017 Constitutional No recent illness 2016 Constitutional No chills 02/28/2017 Constitutional fatigue 02/28/2017 Constitutional No fever 02/28/2017 Constitutional No insomnia 02/28/2017 Constitutional No malaise 02/28/2017 Eyes No vision change 02/28/2017 Ears/Nose/Throat/Neck No dental pain Ears/Nose/Throat/Neck No dizziness 2016 Ears/Nose/Throat/Neck No dysphagia 2016 Ears/Nose/Throat/Neck No headache 2016 Ears/Nose/Throat/Neck No hearing loss Ears/Nose/Throat/Neck No nasal allergies 02/28/2017 Ears/Nose/Throat/Neck No sore throat Ears/Nose/Throat/Neck No postnasal drip 02/28/2017 Ears/Nose/Throat/Neck No sinus congestion 02/28/2017 Cardiovascular No chest pain/pressure Cardiovascular No dyspnea 02/28/2017 Cardiovascular No edema 02/28/2017 Cardiovascular No exercise intolerance Cardiovascular No fatigue 02/28/2017 Cardiovascular hypertension 02/28/2017 Cardiovascular No near-syncope/dizziness 02/28/2017 Respiratory No chest tightness 2016 Respiratory No cough 02/28/2017 Respiratory No dyspnea 02/28/2017 Respiratory No pedal edema 02/28/2017 Gastrointestinal No abdominal pain 2016 Gastrointestinal No constipation 2016 Gastrointestinal No diarrhea 02/28/2017 Gastrointestinal No gastroesophageal reflux 02/28/2017 Gastrointestinal No nausea 02/28/2017 Gastrointestinal No vomiting 02/28/2017 Genitourinary/Nephrology No dysuria 02/28 Genitourinary/Nephrology No nocturia Genitourinary/Nephrology No urinary incontinence 02/28/2017 Musculoskeletal stiffness 02/28/2017 Musculoskeletal No swelling 02/28/2017 Musculoskeletal back pain 02/28/2017 Musculoskeletal No muscle weakness 2016 Musculoskeletal No myalgias 02/28/2017 Dermatologic No rash 02/28/2017 Dermatologic No sores 02/28/2017 Dermatologic No scar 02/28/2017 Neurologic No dizziness 02/28/2017 Neurologic No headache 02/28/2017 Neurologic No neck pain 02/28/2017 Neurologic No syncope 02/28/2017 Psychiatric No anxiety 02/28/2017 Psychiatric No depression 02/28/2017 Respiratory daytime hypersomnolence 02/28 Constitutional No recent illness 2016 Constitutional No fever 10/31/2016 Eyes No eye erythema 10/31/2016 Ears/Nose/Throat/Neck No nasal allergies 10/31/2016 Ears/Nose/Throat/Neck No nasal discharge 10/31/2016 Cardiovascular No chest pain/pressure Cardiovascular No dyspnea 10/31/2016 Respiratory No cough 10/31/2016 Respiratory No dyspnea 10/31/2016 Gastrointestinal No abdominal pain 2016 Gastrointestinal No constipation 2016 Gastrointestinal No diarrhea 10/31/2016 Gastrointestinal No nausea 10/31/2016 Gastrointestinal No vomiting 10/31/2016 Dermatologic No rash 10/31/2016 Neurologic No alteration of consciousness 10/31/2016 Neurologic No mental status change 2016 Constitutional No recent illness 2016 Constitutional No chills 10/29/2016 Constitutional fatigue 10/29/2016 Constitutional No fever 10/29/2016 Constitutional No insomnia 10/29/2016 Constitutional No malaise 10/29/2016 Eyes No vision change 10/29/2016 Ears/Nose/Throat/Neck No dental pain Ears/Nose/Throat/Neck No dizziness 2016 Ears/Nose/Throat/Neck No dysphagia 2016 Ears/Nose/Throat/Neck No headache 2016 Ears/Nose/Throat/Neck No hearing loss Ears/Nose/Throat/Neck No nasal allergies 10/29/2016 Ears/Nose/Throat/Neck No sore throat Ears/Nose/Throat/Neck No postnasal drip 10/29/2016 Ears/Nose/Throat/Neck No sinus congestion 10/29/2016 Cardiovascular No chest pain/pressure Cardiovascular No dyspnea 10/29/2016 Cardiovascular No edema 10/29/2016 Cardiovascular No exercise intolerance Cardiovascular No fatigue 10/29/2016 Cardiovascular hypertension 10/29/2016 Cardiovascular No near-syncope/dizziness 10/29/2016 Respiratory No chest tightness 2016 Respiratory No cough 10/29/2016 Respiratory No dyspnea 10/29/2016 Respiratory No pedal edema 10/29/2016 Gastrointestinal No abdominal pain 2016 Gastrointestinal No constipation 2016 Gastrointestinal No diarrhea 10/29/2016 Gastrointestinal No gastroesophageal reflux 10/29/2016 Gastrointestinal No nausea 10/29/2016 Gastrointestinal No vomiting 10/29/2016 Genitourinary/Nephrology No dysuria 10/29 Genitourinary/Nephrology No nocturia Genitourinary/Nephrology No urinary incontinence 10/29/2016 Musculoskeletal stiffness 10/29/2016 Musculoskeletal No swelling 10/29/2016 Musculoskeletal back pain 10/29/2016 Musculoskeletal No muscle weakness 2016 Musculoskeletal No myalgias 10/29/2016 Dermatologic No rash 10/29/2016 Dermatologic No sores 10/29/2016 Dermatologic No scar 10/29/2016 Neurologic No dizziness 10/29/2016 Neurologic No headache 10/29/2016 Neurologic No neck pain 10/29/2016 Neurologic No syncope 10/29/2016 Psychiatric No anxiety 10/29/2016 Psychiatric No depression 10/29/2016 Constitutional No recent illness 2015 Constitutional No chills 12/22/2015 Constitutional No fatigue 12/22/2015 Constitutional No fever 12/22/2015 Constitutional No insomnia 12/22/2015 Constitutional No malaise 12/22/2015 Eyes No vision change 12/22/2015 Ears/Nose/Throat/Neck No dental pain 07/2016 Ears/Nose/Throat/Neck No dizziness 2015 Ears/Nose/Throat/Neck No dysphagia 2015 Ears/Nose/Throat/Neck No headache 2015 Ears/Nose/Throat/Neck No hearing loss 07/2016 Ears/Nose/Throat/Neck No nasal allergies 12/22/2015 Ears/Nose/Throat/Neck No sore throat 07/2016 Ears/Nose/Throat/Neck No postnasal drip 12/22/2015 Ears/Nose/Throat/Neck No sinus congestion 12/22/2015 Cardiovascular No chest pain/pressure 07/2016 Cardiovascular No dyspnea 12/22/2015 Cardiovascular No edema 12/22/2015 Cardiovascular No exercise intolerance Cardiovascular No fatigue 12/22/2015 Cardiovascular hypertension 12/22/2015 Cardiovascular No near-syncope/dizziness 12/22/2015 Respiratory No chest tightness 2015 Respiratory No cough 12/22/2015 Respiratory No dyspnea 12/22/2015 Respiratory No pedal edema 12/22/2015 Gastrointestinal No abdominal pain 2015 Gastrointestinal No constipation 2015 Gastrointestinal No diarrhea 12/22/2015 Gastrointestinal No gastroesophageal reflux 12/22/2015 Gastrointestinal No nausea 12/22/2015 Gastrointestinal No vomiting 12/22/2015 Genitourinary/Nephrology No dysuria 12/21 Genitourinary/Nephrology No nocturia 07/2016 Genitourinary/Nephrology No urinary incontinence 12/22/2015 Musculoskeletal stiffness 12/22/2015 Musculoskeletal No swelling 12/22/2015 Musculoskeletal back pain 12/22/2015 Musculoskeletal No muscle weakness 2015 Musculoskeletal No myalgias 12/22/2015 Dermatologic No rash 12/22/2015 Dermatologic No sores 12/22/2015 Dermatologic No scar 12/22/2015 Neurologic No dizziness 12/22/2015 Neurologic No headache 12/22/2015 Neurologic No neck pain 12/22/2015 Neurologic No syncope 12/22/2015 Psychiatric No anxiety 12/22/2015 Psychiatric No depression 12/22/2015 Constitutional No recent illness 2015 Constitutional No chills 11/08/2015 Constitutional No fatigue 11/08/2015 Constitutional No fever 11/08/2015 Constitutional No insomnia 11/08/2015 Constitutional No malaise 11/08/2015 Eyes No vision change 11/08/2015 Ears/Nose/Throat/Neck No dental pain Ears/Nose/Throat/Neck No dizziness 2015 Ears/Nose/Throat/Neck No dysphagia 2015 Ears/Nose/Throat/Neck No headache 2015 Ears/Nose/Throat/Neck No hearing loss Ears/Nose/Throat/Neck No nasal allergies 11/08/2015 Ears/Nose/Throat/Neck No sore throat Ears/Nose/Throat/Neck No postnasal drip 11/08/2015 Ears/Nose/Throat/Neck No sinus congestion 11/08/2015 Cardiovascular No chest pain/pressure Cardiovascular No dyspnea 11/08/2015 Cardiovascular No edema 11/08/2015 Cardiovascular No exercise intolerance Cardiovascular No fatigue 11/08/2015 Cardiovascular hypertension 11/08/2015 Cardiovascular No near-syncope/dizziness 11/08/2015 Respiratory No chest tightness 2015 Respiratory No cough 11/08/2015 Respiratory No dyspnea 11/08/2015 Respiratory No pedal edema 11/08/2015 Gastrointestinal No abdominal pain 2015 Gastrointestinal No constipation 2015 Gastrointestinal No diarrhea 11/08/2015 Gastrointestinal No gastroesophageal reflux 11/08/2015 Gastrointestinal No nausea 11/08/2015 Gastrointestinal No vomiting 11/08/2015 Genitourinary/Nephrology No dysuria 11/07 Genitourinary/Nephrology No nocturia Genitourinary/Nephrology No urinary incontinence 11/08/2015 Musculoskeletal stiffness 11/08/2015 Musculoskeletal No swelling 11/08/2015 Musculoskeletal No muscle weakness 2015 Musculoskeletal No myalgias 11/08/2015 Dermatologic No rash 11/08/2015 Dermatologic No sores 11/08/2015 Dermatologic No scar 11/08/2015 Neurologic No dizziness 11/08/2015 Neurologic No headache 11/08/2015 Neurologic No neck pain 11/08/2015 Neurologic No syncope 11/08/2015 Psychiatric No anxiety 11/08/2015 Psychiatric No depression 11/08/2015 Musculoskeletal back pain 11/08/2015 Constitutional No recent illness 2015 Constitutional No chills 09/01/2015 Constitutional No fatigue 09/01/2015 Constitutional No fever 09/01/2015 Constitutional No insomnia 09/01/2015 Constitutional No malaise 09/01/2015 Eyes No vision change 09/01/2015 Ears/Nose/Throat/Neck No dental pain Ears/Nose/Throat/Neck No dizziness 2015 Ears/Nose/Throat/Neck No dysphagia 2015 Ears/Nose/Throat/Neck No headache 2015 Ears/Nose/Throat/Neck No hearing loss Ears/Nose/Throat/Neck No nasal allergies 09/01/2015 Ears/Nose/Throat/Neck No sore throat Ears/Nose/Throat/Neck No postnasal drip 09/01/2015 Ears/Nose/Throat/Neck No sinus congestion 09/01/2015 Cardiovascular No chest pain/pressure Cardiovascular No dyspnea 09/01/2015 Cardiovascular No edema 09/01/2015 Cardiovascular No exercise intolerance Cardiovascular No fatigue 09/01/2015 Cardiovascular hypertension 09/01/2015 Cardiovascular No near-syncope/dizziness 09/01/2015 Respiratory No chest tightness 2015 Respiratory No cough 09/01/2015 Respiratory No dyspnea 09/01/2015 Respiratory No pedal edema 09/01/2015 Gastrointestinal No abdominal pain 2015 Gastrointestinal No constipation 2015 Gastrointestinal No diarrhea 09/01/2015 Gastrointestinal No gastroesophageal reflux 09/01/2015 Gastrointestinal No nausea 09/01/2015 Gastrointestinal No vomiting 09/01/2015 Genitourinary/Nephrology No dysuria 09/01 Genitourinary/Nephrology No nocturia Genitourinary/Nephrology No urinary incontinence 09/01/2015 Musculoskeletal No stiffness 09/01/2015 Musculoskeletal No swelling 09/01/2015 Musculoskeletal No muscle weakness 2015 Musculoskeletal No myalgias 09/01/2015 Dermatologic No rash 09/01/2015 Dermatologic No sores 09/01/2015 Dermatologic No scar 09/01/2015 Neurologic No dizziness 09/01/2015 Neurologic No headache 09/01/2015 Neurologic No neck pain 09/01/2015 Neurologic No syncope 09/01/2015 Psychiatric No anxiety 09/01/2015 Psychiatric No depression 09/01/2015 Constitutional No recent illness 2014 Constitutional No chills 07/25/2015 Constitutional No fatigue 07/25/2015 Constitutional No fever 07/25/2015 Constitutional No insomnia 07/25/2015 Constitutional No malaise 07/25/2015 Eyes No vision change 07/25/2015 Ears/Nose/Throat/Neck No dental pain Ears/Nose/Throat/Neck No dizziness 2014 Ears/Nose/Throat/Neck No dysphagia 2014 Ears/Nose/Throat/Neck No headache 2014 Ears/Nose/Throat/Neck No hearing loss Ears/Nose/Throat/Neck No nasal allergies 07/25/2015 Ears/Nose/Throat/Neck No sore throat Ears/Nose/Throat/Neck No postnasal drip 07/25/2015 Ears/Nose/Throat/Neck No sinus congestion 07/25/2015 Cardiovascular No chest pain/pressure Cardiovascular No dyspnea 07/25/2015 Cardiovascular No edema 07/25/2015 Cardiovascular No exercise intolerance Cardiovascular No fatigue 07/25/2015 Cardiovascular hypertension 07/25/2015 Cardiovascular No near-syncope/dizziness 07/25/2015 Respiratory No chest tightness 2014 Respiratory No cough 07/25/2015 Respiratory No dyspnea 07/25/2015 Respiratory No pedal edema 07/25/2015 Gastrointestinal No abdominal pain 2014 Gastrointestinal No constipation 2014 Gastrointestinal No diarrhea 07/25/2015 Gastrointestinal No gastroesophageal reflux 07/25/2015 Gastrointestinal No nausea 07/25/2015 Gastrointestinal No vomiting 07/25/2015 Genitourinary/Nephrology No dysuria 07/25 Genitourinary/Nephrology No nocturia Genitourinary/Nephrology No urinary incontinence 07/25/2015 Musculoskeletal No stiffness 07/25/2015 Musculoskeletal No swelling 07/25/2015 Musculoskeletal No muscle weakness 2014 Musculoskeletal No myalgias 07/25/2015 Dermatologic No rash 07/25/2015 Dermatologic No sores 07/25/2015 Dermatologic No scar 07/25/2015 Neurologic No dizziness 07/25/2015 Neurologic No headache 07/25/2015 Neurologic No neck pain 07/25/2015 Neurologic No syncope 07/25/2015 Psychiatric No anxiety 07/25/2015 Psychiatric No depression 07/25/2015 Constitutional No recent illness 2014 Constitutional No chills 05/16/2015 Constitutional No fatigue 05/16/2015 Constitutional No fever 05/16/2015 Constitutional No insomnia 05/16/2015 Constitutional No malaise 05/16/2015 Eyes No vision change 05/16/2015 Ears/Nose/Throat/Neck No dental pain 12/2014 Ears/Nose/Throat/Neck No dizziness 2014 Ears/Nose/Throat/Neck No dysphagia 2014 Ears/Nose/Throat/Neck No headache 2014 Ears/Nose/Throat/Neck No hearing loss 12/2014 Ears/Nose/Throat/Neck No nasal allergies 05/16/2015 Ears/Nose/Throat/Neck No sore throat 12/2014 Ears/Nose/Throat/Neck No postnasal drip 05/16/2015 Ears/Nose/Throat/Neck No sinus congestion 05/16/2015 Cardiovascular No chest pain/pressure 12/2014 Cardiovascular No dyspnea 05/16/2015 Cardiovascular No edema 05/16/2015 Cardiovascular No exercise intolerance Cardiovascular No fatigue 05/16/2015 Cardiovascular No near-syncope/dizziness 05/16/2015 Respiratory No chest tightness 2014 Respiratory No cough 05/16/2015 Respiratory No dyspnea 05/16/2015 Respiratory No pedal edema 05/16/2015 Gastrointestinal No abdominal pain 2014 Gastrointestinal No constipation 2014 Gastrointestinal No diarrhea 05/16/2015 Gastrointestinal No gastroesophageal reflux 05/16/2015 Gastrointestinal No nausea 05/16/2015 Gastrointestinal No vomiting 05/16/2015 Genitourinary/Nephrology No dysuria 05/16 Genitourinary/Nephrology No nocturia 12/2014 Genitourinary/Nephrology No urinary incontinence 05/16/2015 Musculoskeletal No stiffness 05/16/2015 Musculoskeletal No swelling 05/16/2015 Musculoskeletal No muscle weakness 2014 Musculoskeletal No myalgias 05/16/2015 Dermatologic No rash 05/16/2015 Dermatologic No sores 05/16/2015 Dermatologic No scar 05/16/2015 Neurologic No dizziness 05/16/2015 Neurologic No headache 05/16/2015 Neurologic No neck pain 05/16/2015 Neurologic No syncope 05/16/2015 Psychiatric No anxiety 05/16/2015 Psychiatric No depression 05/16/2015 Cardiovascular hypertension 05/16/2015 Physical Exam Exam Name System Name Item Name Status Result Effective Dates Notes Full Exam - General 1994 Eyes conjunctiva /eyelids Overall: conjunctiva clear 06/16/2018 None Full Exam - General 1994 Eyes conjunctiva /eyelids Overall: cornea clear 06/16/2018 None Full Exam - General 1994 Eyes conjunctiva /eyelids Overall: eyelids normal 06/16/2018 None Full Exam - General 1994 Ears/Nose/Throat otoscopic exam Overall: external auditory canals clear 06/16/2018 None Full Exam - General 1994 Ears/Nose/Throat otoscopic exam Overall: tympanic membranes clear 06/16/2018 None Full Exam - General 1994 Ears/Nose/Throat lips/teeth/gingiva Overall: benign lips 06/16/2018 None Full Exam - General 1994 Ears/Nose/Throat oral cavity/pharynx/larynx Overall: oral mucosa clear 06/16/2018 None Full Exam - General 1994 Ears/Nose/Throat oral cavity/pharynx/larynx Overall: oropharyngeal mucosa clear 06/16/2018 None Full Exam - General 1994 Respiratory auscultation Overall: breath sounds clear bilaterally 06/16/2018 None Full Exam - General 1994 Respiratory respiratory effort/rhythm Overall: no retractions 06/16/2018 None Full Exam - General 1994 Respiratory respiratory effort/rhythm Overall: normal rate 06/16/2018 None Full Exam - General 1994 Cardiovascular extremities Overall: no clubbing 06/16/2018 None Full Exam - General 1994 Cardiovascular auscultation of heart Overall: regular rate 06/16/2018 None Full Exam - General 1994 Cardiovascular auscultation of heart Overall: normal heart sounds 06/16/2018 None Full Exam - General 1994 Musculoskeletal spine, ribs and pelvis Overall: good posture 06/16/2018 None Full Exam - General 1994 Musculoskeletal head and neck Overall: head atraumatic 06/16/2018 None Full Exam - General 1994 Psychiatric orientation/consciousness Overall: oriented to person, place and time 06/16/2018 None Full Exam - General 1994 Psychiatric mood and affect Overall: normal mood and affect 06/16/2018 None Full Exam - General 1994 Constitutional general appearance Overall: well developed 06/16/2018 None Full Exam - General 1994 Constitutional general appearance Overall: in no acute distress 06/16/2018 None Full Exam - General 1994 Constitutional general appearance Overall: well nourished 06/16/2018 None Full Exam - General 1994 Musculoskeletal gait and station Overall: normal station 06/16/2018 None Full Exam - General 1994 Musculoskeletal gait and station Overall: normal gait 06/16/2018 None Full Exam - General 1994 Neurologic cranial nerves Overall: crainial nerves 2 - 12 grossly intact 06/16/2018 None Full Exam - General 1994 Constitutional general appearance Development: well developed 10/23/2017 None Full Exam - General 1994 Constitutional general appearance Development: appears stated age 0310/23/2017 None Full Exam - General 1994 Constitutional general appearance Hygiene/Attention to Grooming: good hygiene 10/23/2017 None Full Exam - General 1994 Eyes conjunctiva /eyelids Overall: conjunctiva clear 10/23/2017 None Full Exam - General 1994 Eyes conjunctiva /eyelids Overall: cornea clear 10/23/2017 None Full Exam - General 1994 Eyes conjunctiva /eyelids Overall: eyelids normal 10/23/2017 None Full Exam - General 1994 Eyes pupils and irises Overall: pupils equal, round, reactive to light and accomodation 10/23/2017 None Full Exam - General 1994 Ears/Nose/Throat otoscopic exam Overall: external auditory canals clear 10/23/2017 None Full Exam - General 1994 Ears/Nose/Throat otoscopic exam Overall: tympanic membranes clear 10/23/2017 None Full Exam - General 1994 Ears/Nose/Throat lips/teeth/gingiva Overall: benign lips 10/23/2017 None Full Exam - General 1994 Ears/Nose/Throat lips/teeth/gingiva Overall: normal dentition 10/23/2017 None Full Exam - General 1994 Ears/Nose/Throat oral cavity/pharynx/larynx Overall: oral mucosa clear 10/23/2017 None Full Exam - General 1994 Ears/Nose/Throat oral cavity/pharynx/larynx Overall: oropharyngeal mucosa clear 10/23/2017 None Full Exam - General 1994 Ears/Nose/Throat oral cavity/pharynx/larynx Overall: hypopharynx benign 10/23/2017 None Full Exam - General 1994 Ears/Nose/Throat oral cavity/pharynx/larynx Overall: no masses 10/23/2017 None Full Exam - General 1994 Respiratory auscultation Overall: breath sounds clear bilaterally 10/23/2017 None Full Exam - General 1994 Respiratory respiratory effort/rhythm Overall: no retractions 10/23/2017 None Full Exam - General 1994 Respiratory respiratory effort/rhythm Overall: normal rate 10/23/2017 None Full Exam - General 1994 Cardiovascular extremities Overall: no clubbing 10/23/2017 None Full Exam - General 1994 Cardiovascular auscultation of heart Overall: regular rate 10/23/2017 None Full Exam - General 1994 Cardiovascular auscultation of heart Overall: normal heart sounds 10/23/2017 None Full Exam - General 1994 Musculoskeletal spine, ribs and pelvis Overall: good posture 10/23/2017 None Full Exam - General 1994 Musculoskeletal head and neck Overall: head atraumatic 10/23/2017 None Full Exam - General 1994 Musculoskeletal head and neck Overall: cervical spine benign 10/23/2017 None Full Exam - General 1994 Integument inspection of skin Location: abdomen 10/23/2017 left flank - skin tag - not irritated Full Exam - General 1994 Psychiatric orientation/consciousness Overall: oriented to person, place and time 10/23/2017 None Full Exam - General 1994 Psychiatric mood and affect Overall: normal mood and affect 10/23/2017 None Full Exam - General 1994 Constitutional general appearance Development: well developed 07/02/2017 None Full Exam - General 1994 Constitutional general appearance Development: appears stated age 1107/02/2017 None Full Exam - General 1994 Constitutional general appearance Hygiene/Attention to Grooming: good hygiene 07/02/2017 None Full Exam - General 1994 Eyes conjunctiva /eyelids Overall: conjunctiva clear 07/02/2017 None Full Exam - General 1994 Eyes conjunctiva /eyelids Overall: cornea clear 07/02/2017 None Full Exam - General 1994 Eyes conjunctiva /eyelids Overall: eyelids normal 07/02/2017 None Full Exam - General 1994 Eyes pupils and irises Overall: pupils equal, round, reactive to light and accomodation 07/02/2017 None Full Exam - General 1994 Ears/Nose/Throat otoscopic exam Overall: external auditory canals clear 07/02/2017 None Full Exam - General 1994 Ears/Nose/Throat otoscopic exam Overall: tympanic membranes clear 07/02/2017 None Full Exam - General 1994 Ears/Nose/Throat lips/teeth/gingiva Overall: benign lips 07/02/2017 None Full Exam - General 1994 Ears/Nose/Throat lips/teeth/gingiva Overall: normal dentition 07/02/2017 None Full Exam - General 1994 Ears/Nose/Throat oral cavity/pharynx/larynx Overall: oral mucosa clear 07/02/2017 None Full Exam - General 1994 Ears/Nose/Throat oral cavity/pharynx/larynx Overall: oropharyngeal mucosa clear 07/02/2017 None Full Exam - General 1994 Ears/Nose/Throat oral cavity/pharynx/larynx Overall: hypopharynx benign 07/02/2017 None Full Exam - General 1994 Ears/Nose/Throat oral cavity/pharynx/larynx Overall: no masses 07/02/2017 None Full Exam - General 1994 Respiratory auscultation Overall: breath sounds clear bilaterally 07/02/2017 None Full Exam - General 1994 Respiratory respiratory effort/rhythm Overall: no retractions 07/02/2017 None Full Exam - General 1994 Respiratory respiratory effort/rhythm Overall: normal rate 07/02/2017 None Full Exam - General 1994 Cardiovascular extremities Overall: no clubbing 07/02/2017 None Full Exam - General 1994 Cardiovascular auscultation of heart Overall: regular rate 07/02/2017 None Full Exam - General 1994 Cardiovascular auscultation of heart Overall: normal heart sounds 07/02/2017 None Full Exam - General 1994 Musculoskeletal spine, ribs and pelvis Overall: good posture 07/02/2017 None Full Exam - General 1994 Musculoskeletal head and neck Overall: head atraumatic 07/02/2017 None Full Exam - General 1994 Musculoskeletal head and neck Overall: cervical spine benign 07/02/2017 None Full Exam - General 1994 Psychiatric orientation/consciousness Overall: oriented to person, place and time 07/02/2017 None Full Exam - General 1994 Psychiatric mood and affect Overall: normal mood and affect 07/02/2017 None Full Exam - General 1994 Integument inspection of skin Location: abdomen 07/02/2017 left flank - skin tag - not irritated Full Exam - General 1994 Constitutional general appearance Development: well developed 06/04/2017 None Full Exam - General 1994 Constitutional general appearance Development: appears stated age 1006/04/2017 None Full Exam - General 1994 Constitutional general appearance Hygiene/Attention to Grooming: good hygiene 06/04/2017 None Full Exam - General 1994 Eyes conjunctiva /eyelids Overall: conjunctiva clear 06/04/2017 None Full Exam - General 1994 Eyes conjunctiva /eyelids Overall: cornea clear 06/04/2017 None Full Exam - General 1994 Eyes conjunctiva /eyelids Overall: eyelids normal 06/04/2017 None Full Exam - General 1994 Eyes pupils and irises Overall: pupils equal, round, reactive to light and accomodation 06/04/2017 None Full Exam - General 1994 Ears/Nose/Throat otoscopic exam Overall: external auditory canals clear 06/04/2017 None Full Exam - General 1994 Ears/Nose/Throat otoscopic exam Overall: tympanic membranes clear 06/04/2017 None Full Exam - General 1994 Ears/Nose/Throat lips/teeth/gingiva Overall: benign lips 06/04/2017 None Full Exam - General 1994 Ears/Nose/Throat lips/teeth/gingiva Overall: normal dentition 06/04/2017 None Full Exam - General 1994 Ears/Nose/Throat oral cavity/pharynx/larynx Overall: oral mucosa clear 06/04/2017 None Full Exam - General 1994 Ears/Nose/Throat oral cavity/pharynx/larynx Overall: oropharyngeal mucosa clear 06/04/2017 None Full Exam - General 1994 Ears/Nose/Throat oral cavity/pharynx/larynx Overall: hypopharynx benign 06/04/2017 None Full Exam - General 1994 Ears/Nose/Throat oral cavity/pharynx/larynx Overall: no masses 06/04/2017 None Full Exam - General 1994 Respiratory auscultation Overall: breath sounds clear bilaterally 06/04/2017 None Full Exam - General 1994 Respiratory respiratory effort/rhythm Overall: no retractions 06/04/2017 None Full Exam - General 1994 Respiratory respiratory effort/rhythm Overall: normal rate 06/04/2017 None Full Exam - General 1994 Cardiovascular extremities Overall: no clubbing 06/04/2017 None Full Exam - General 1994 Cardiovascular auscultation of heart Overall: regular rate 06/04/2017 None Full Exam - General 1994 Cardiovascular auscultation of heart Overall: normal heart sounds 06/04/2017 None Full Exam - General 1994 Musculoskeletal spine, ribs and pelvis Overall: good posture 06/04/2017 None Full Exam - General 1994 Musculoskeletal head and neck Overall: head atraumatic 06/04/2017 None Full Exam - General 1994 Musculoskeletal head and neck Overall: cervical spine benign 06/04/2017 None Full Exam - General 1994 Psychiatric orientation/consciousness Overall: oriented to person, place and time 06/04/2017 None Full Exam - General 1994 Psychiatric mood and affect Overall: normal mood and affect 06/04/2017 None Full Exam - General 1994 Constitutional general appearance Development: well developed 02/28/2017 None Full Exam - General 1994 Constitutional general appearance Development: appears stated age 0702/28/2017 None Full Exam - General 1994 Constitutional general appearance Hygiene/Attention to Grooming: good hygiene 02/28/2017 None Full Exam - General 1994 Eyes conjunctiva /eyelids Overall: conjunctiva clear 02/28/2017 None Full Exam - General 1994 Eyes conjunctiva /eyelids Overall: cornea clear 02/28/2017 None Full Exam - General 1994 Eyes conjunctiva /eyelids Overall: eyelids normal 02/28/2017 None Full Exam - General 1994 Eyes pupils and irises Overall: pupils equal, round, reactive to light and accomodation 02/28/2017 None Full Exam - General 1994 Ears/Nose/Throat otoscopic exam Overall: external auditory canals clear 02/28/2017 None Full Exam - General 1994 Ears/Nose/Throat otoscopic exam Overall: tympanic membranes clear 02/28/2017 None Full Exam - General 1994 Ears/Nose/Throat lips/teeth/gingiva Overall: benign lips 02/28/2017 None Full Exam - General 1994 Ears/Nose/Throat lips/teeth/gingiva Overall: normal dentition 02/28/2017 None Full Exam - General 1994 Ears/Nose/Throat oral cavity/pharynx/larynx Overall: oral mucosa clear 02/28/2017 None Full Exam - General 1994 Ears/Nose/Throat oral cavity/pharynx/larynx Overall: oropharyngeal mucosa clear 02/28/2017 None Full Exam - General 1994 Ears/Nose/Throat oral cavity/pharynx/larynx Overall: hypopharynx benign 02/28/2017 None Full Exam - General 1994 Ears/Nose/Throat oral cavity/pharynx/larynx Overall: no masses 02/28/2017 None Full Exam - General 1994 Respiratory auscultation Overall: breath sounds clear bilaterally 02/28/2017 None Full Exam - General 1994 Respiratory respiratory effort/rhythm Overall: no retractions 02/28/2017 None Full Exam - General 1994 Respiratory respiratory effort/rhythm Overall: normal rate 02/28/2017 None Full Exam - General 1994 Cardiovascular extremities Overall: no clubbing 02/28/2017 None Full Exam - General 1994 Cardiovascular auscultation of heart Overall: regular rate 02/28/2017 None Full Exam - General 1994 Cardiovascular auscultation of heart Overall: normal heart sounds 02/28/2017 None Full Exam - General 1994 Abdomen abdominal exam Overall: no tenderness 02/28/2017 None Full Exam - General 1994 Abdomen abdominal exam Overall: normal bowel sounds 02/28/2017 None Full Exam - General 1994 Lymphatic neck nodes Overall: anterior cervical chain benign 02/28/2017 None Full Exam - General 1994 Lymphatic neck nodes Overall: posterior cervical chain benign 02/28/2017 None Full Exam - General 1994 Musculoskeletal spine, ribs and pelvis Overall: good posture 02/28/2017 None Full Exam - General 1994 Musculoskeletal head and neck Overall: head atraumatic 02/28/2017 None Full Exam - General 1994 Musculoskeletal head and neck Overall: cervical spine benign 02/28/2017 None Full Exam - General 1994 Integument inspection of skin Overall: few scattered moles, no gross abnormalities 02/28/2017 None Full Exam - General 1994 Neurologic deep tendon reflexes Overall: deep tendon reflexes intact 02/28/2017 None Full Exam - General 1994 Neurologic cranial nerves Overall: crainial nerves 2 - 12 grossly intact 02/28/2017 None Full Exam - General 1994 Psychiatric orientation/consciousness Overall: oriented to person, place and time 02/28/2017 None Full Exam - General 1994 Psychiatric mood and affect Overall: normal mood and affect 02/28/2017 None Full Exam - General 1994 Constitutional general appearance Overall: well developed 10/31/2016 None Full Exam - General 1994 Constitutional general appearance Overall: in no acute distress 10/31/2016 None Full Exam - General 1994 Constitutional general appearance Overall: well nourished 10/31/2016 None Full Exam - General 1994 Eyes conjunctiva /eyelids Overall: conjunctiva clear 10/31/2016 None Full Exam - General 1994 Eyes conjunctiva /eyelids Overall: eyelids normal 10/31/2016 None Full Exam - General 1994 Ears/Nose/Throat lips/teeth/gingiva Overall: benign lips 10/31/2016 None Full Exam - General 1994 Ears/Nose/Throat oral cavity/pharynx/larynx Overall: oral mucosa clear 10/31/2016 None Full Exam - General 1994 Respiratory auscultation Overall: breath sounds clear bilaterally 10/31/2016 None Full Exam - General 1994 Respiratory respiratory effort/rhythm Overall: no retractions 10/31/2016 None Full Exam - General 1994 Respiratory respiratory effort/rhythm Overall: normal rate 10/31/2016 None Full Exam - General 1994 Cardiovascular extremities Overall: no clubbing 10/31/2016 None Full Exam - General 1994 Cardiovascular auscultation of heart Overall: regular rate 10/31/2016 None Full Exam - General 1994 Cardiovascular auscultation of heart Overall: normal heart sounds 10/31/2016 None Full Exam - General 1994 Musculoskeletal head and neck Overall: head atraumatic 10/31/2016 None Full Exam - General 1994 Integument inspection of skin Overall: few scattered moles, no gross abnormalities 10/31/2016 None Full Exam - General 1994 Psychiatric orientation/consciousness Overall: oriented to person, place and time 10/31/2016 None Full Exam - General 1994 Psychiatric mood and affect Overall: normal mood and affect 10/31/2016 None Full Exam - General 1994 Psychiatric appearance Overall: well-groomed, good eye contact 10/31/2016 None Full Exam - General 1994 Integument inspection of skin Overall: no rash, lesions 10/31/2016 None Full Exam - General 1994 Constitutional general appearance Development: well developed 10/29/2016 None Full Exam - General 1994 Constitutional general appearance Development: appears stated age 0310/29/2016 None Full Exam - General 1994 Constitutional general appearance Hygiene/Attention to Grooming: good hygiene 10/29/2016 None Full Exam - General 1994 Eyes conjunctiva /eyelids Overall: conjunctiva clear 10/29/2016 None Full Exam - General 1994 Eyes conjunctiva /eyelids Overall: cornea clear 10/29/2016 None Full Exam - General 1994 Eyes conjunctiva /eyelids Overall: eyelids normal 10/29/2016 None Full Exam - General 1994 Eyes pupils and irises Overall: pupils equal, round, reactive to light and accomodation 10/29/2016 None Full Exam - General 1994 Ears/Nose/Throat otoscopic exam Overall: external auditory canals clear 10/29/2016 None Full Exam - General 1994 Ears/Nose/Throat otoscopic exam Overall: tympanic membranes clear 10/29/2016 None Full Exam - General 1994 Ears/Nose/Throat lips/teeth/gingiva Overall: benign lips 10/29/2016 None Full Exam - General 1994 Ears/Nose/Throat lips/teeth/gingiva Overall: normal dentition 10/29/2016 None Full Exam - General 1994 Ears/Nose/Throat oral cavity/pharynx/larynx Overall: oral mucosa clear 10/29/2016 None Full Exam - General 1994 Ears/Nose/Throat oral cavity/pharynx/larynx Overall: oropharyngeal mucosa clear 10/29/2016 None Full Exam - General 1994 Ears/Nose/Throat oral cavity/pharynx/larynx Overall: hypopharynx benign 10/29/2016 None Full Exam - General 1994 Ears/Nose/Throat oral cavity/pharynx/larynx Overall: no masses 10/29/2016 None Full Exam - General 1994 Respiratory auscultation Overall: breath sounds clear bilaterally 10/29/2016 None Full Exam - General 1994 Respiratory respiratory effort/rhythm Overall: no retractions 10/29/2016 None Full Exam - General 1994 Respiratory respiratory effort/rhythm Overall: normal rate 10/29/2016 None Full Exam - General 1994 Cardiovascular extremities Overall: no clubbing 10/29/2016 None Full Exam - General 1994 Cardiovascular auscultation of heart Overall: regular rate 10/29/2016 None Full Exam - General 1994 Cardiovascular auscultation of heart Overall: normal heart sounds 10/29/2016 None Full Exam - General 1994 Abdomen abdominal exam Overall: no tenderness 10/29/2016 None Full Exam - General 1994 Abdomen abdominal exam Overall: normal bowel sounds 10/29/2016 None Full Exam - General 1994 Lymphatic neck nodes Overall: anterior cervical chain benign 10/29/2016 None Full Exam - General 1994 Lymphatic neck nodes Overall: posterior cervical chain benign 10/29/2016 None Full Exam - General 1994 Musculoskeletal spine, ribs and pelvis Overall: good posture 10/29/2016 None Full Exam - General 1994 Musculoskeletal head and neck Overall: head atraumatic 10/29/2016 None Full Exam - General 1994 Musculoskeletal head and neck Overall: cervical spine benign 10/29/2016 None Full Exam - General 1994 Integument inspection of skin Overall: few scattered moles, no gross abnormalities 10/29/2016 None Full Exam - General 1994 Neurologic deep tendon reflexes Overall: deep tendon reflexes intact 10/29/2016 None Full Exam - General 1994 Neurologic cranial nerves Overall: crainial nerves 2 - 12 grossly intact 10/29/2016 None Full Exam - General 1994 Psychiatric orientation/consciousness Overall: oriented to person, place and time 10/29/2016 None Full Exam - General 1994 Psychiatric mood and affect Overall: normal mood and affect 10/29/2016 None Full Exam - General 1994 Constitutional general appearance Development: well developed 12/22/2015 None Full Exam - General 1994 Constitutional general appearance Development: appears stated age 0512/22/2015 None Full Exam - General 1994 Constitutional general appearance Hygiene/Attention to Grooming: good hygiene 12/22/2015 None Full Exam - General 1994 Eyes conjunctiva /eyelids Overall: conjunctiva clear 12/22/2015 None Full Exam - General 1994 Eyes conjunctiva /eyelids Overall: cornea clear 12/22/2015 None Full Exam - General 1994 Eyes conjunctiva /eyelids Overall: eyelids normal 12/22/2015 None Full Exam - General 1994 Eyes pupils and irises Overall: pupils equal, round, reactive to light and accomodation 12/22/2015 None Full Exam - General 1994 Ears/Nose/Throat otoscopic exam Overall: external auditory canals clear 12/22/2015 None Full Exam - General 1994 Ears/Nose/Throat otoscopic exam Overall: tympanic membranes clear 12/22/2015 None Full Exam - General 1994 Ears/Nose/Throat lips/teeth/gingiva Overall: benign lips 12/22/2015 None Full Exam - General 1994 Ears/Nose/Throat lips/teeth/gingiva Overall: normal dentition 12/22/2015 None Full Exam - General 1994 Ears/Nose/Throat oral cavity/pharynx/larynx Overall: oral mucosa clear 12/22/2015 None Full Exam - General 1994 Ears/Nose/Throat oral cavity/pharynx/larynx Overall: oropharyngeal mucosa clear 12/22/2015 None Full Exam - General 1994 Ears/Nose/Throat oral cavity/pharynx/larynx Overall: hypopharynx benign 12/22/2015 None Full Exam - General 1994 Ears/Nose/Throat oral cavity/pharynx/larynx Overall: no masses 12/22/2015 None Full Exam - General 1994 Respiratory auscultation Overall: breath sounds clear bilaterally 12/22/2015 None Full Exam - General 1994 Respiratory respiratory effort/rhythm Overall: no retractions 12/22/2015 None Full Exam - General 1994 Respiratory respiratory effort/rhythm Overall: normal rate 12/22/2015 None Full Exam - General 1994 Cardiovascular extremities Overall: no clubbing 12/22/2015 None Full Exam - General 1994 Cardiovascular auscultation of heart Overall: regular rate 12/22/2015 None Full Exam - General 1994 Cardiovascular auscultation of heart Overall: normal heart sounds 12/22/2015 None Full Exam - General 1994 Abdomen abdominal exam Overall: no tenderness 12/22/2015 None Full Exam - General 1994 Abdomen abdominal exam Overall: normal bowel sounds 12/22/2015 None Full Exam - General 1994 Lymphatic neck nodes Overall: anterior cervical chain benign 12/22/2015 None Full Exam - General 1994 Lymphatic neck nodes Overall: posterior cervical chain benign 12/22/2015 None Full Exam - General 1994 Musculoskeletal spine, ribs and pelvis Overall: good posture 12/22/2015 None Full Exam - General 1994 Musculoskeletal head and neck Overall: head atraumatic 12/22/2015 None Full Exam - General 1994 Musculoskeletal head and neck Overall: cervical spine benign 12/22/2015 None Full Exam - General 1994 Integument inspection of skin Overall: few scattered moles, no gross abnormalities 12/22/2015 None Full Exam - General 1994 Neurologic deep tendon reflexes Overall: deep tendon reflexes intact 12/22/2015 None Full Exam - General 1994 Neurologic cranial nerves Overall: crainial nerves 2 - 12 grossly intact 12/22/2015 None Full Exam - General 1994 Psychiatric orientation/consciousness Overall: oriented to person, place and time 12/22/2015 None Full Exam - General 1994 Psychiatric mood and affect Overall: normal mood and affect 12/22/2015 None Full Exam - General 1994 Constitutional general appearance Development: well developed 11/08/2015 None Full Exam - General 1994 Constitutional general appearance Development: appears stated age 0311/08/2015 None Full Exam - General 1994 Constitutional general appearance Hygiene/Attention to Grooming: good hygiene 11/08/2015 None Full Exam - General 1994 Eyes conjunctiva /eyelids Overall: conjunctiva clear 11/08/2015 None Full Exam - General 1994 Eyes conjunctiva /eyelids Overall: cornea clear 11/08/2015 None Full Exam - General 1994 Eyes conjunctiva /eyelids Overall: eyelids normal 11/08/2015 None Full Exam - General 1994 Eyes pupils and irises Overall: pupils equal, round, reactive to light and accomodation 11/08/2015 None Full Exam - General 1994 Ears/Nose/Throat otoscopic exam Overall: external auditory canals clear 11/08/2015 None Full Exam - General 1994 Ears/Nose/Throat otoscopic exam Overall: tympanic membranes clear 11/08/2015 None Full Exam - General 1994 Ears/Nose/Throat lips/teeth/gingiva Overall: benign lips 11/08/2015 None Full Exam - General 1994 Ears/Nose/Throat lips/teeth/gingiva Overall: normal dentition 11/08/2015 None Full Exam - General 1994 Ears/Nose/Throat oral cavity/pharynx/larynx Overall: oral mucosa clear 11/08/2015 None Full Exam - General 1994 Ears/Nose/Throat oral cavity/pharynx/larynx Overall: oropharyngeal mucosa clear 11/08/2015 None Full Exam - General 1994 Ears/Nose/Throat oral cavity/pharynx/larynx Overall: hypopharynx benign 11/08/2015 None Full Exam - General 1994 Ears/Nose/Throat oral cavity/pharynx/larynx Overall: no masses 11/08/2015 None Full Exam - General 1994 Respiratory auscultation Overall: breath sounds clear bilaterally 11/08/2015 None Full Exam - General 1994 Respiratory respiratory effort/rhythm Overall: no retractions 11/08/2015 None Full Exam - General 1994 Respiratory respiratory effort/rhythm Overall: normal rate 11/08/2015 None Full Exam - General 1994 Cardiovascular extremities Overall: no clubbing 11/08/2015 None Full Exam - General 1994 Cardiovascular auscultation of heart Overall: regular rate 11/08/2015 None Full Exam - General 1994 Cardiovascular auscultation of heart Overall: normal heart sounds 11/08/2015 None Full Exam - General 1994 Abdomen abdominal exam Overall: no tenderness 11/08/2015 None Full Exam - General 1994 Abdomen abdominal exam Overall: normal bowel sounds 11/08/2015 None Full Exam - General 1994 Lymphatic neck nodes Overall: anterior cervical chain benign 11/08/2015 None Full Exam - General 1994 Lymphatic neck nodes Overall: posterior cervical chain benign 11/08/2015 None Full Exam - General 1994 Musculoskeletal spine, ribs and pelvis Overall: spine benign 11/08/2015 None Full Exam - General 1994 Musculoskeletal spine, ribs and pelvis Overall: sacroiliac joint benign 11/08/2015 None Full Exam - General 1994 Musculoskeletal spine, ribs and pelvis Overall: good posture 11/08/2015 None Full Exam - General 1994 Musculoskeletal head and neck Overall: head atraumatic 11/08/2015 None Full Exam - General 1994 Musculoskeletal head and neck Overall: cervical spine benign 11/08/2015 None Full Exam - General 1994 Integument inspection of skin Overall: few scattered moles, no gross abnormalities 11/08/2015 None Full Exam - General 1994 Neurologic deep tendon reflexes Overall: deep tendon reflexes intact 11/08/2015 None Full Exam - General 1994 Neurologic cranial nerves Overall: crainial nerves 2 - 12 grossly intact 11/08/2015 None Full Exam - General 1994 Psychiatric orientation/consciousness Overall: oriented to person, place and time 11/08/2015 None Full Exam - General 1994 Psychiatric mood and affect Overall: normal mood and affect 11/08/2015 None Full Exam - General 1994 Constitutional general appearance Development: well developed 09/01/2015 None Full Exam - General 1994 Constitutional general appearance Development: appears stated age 0109/01/2015 None Full Exam - General 1994 Constitutional general appearance Hygiene/Attention to Grooming: good hygiene 09/01/2015 None Full Exam - General 1994 Eyes conjunctiva /eyelids Overall: conjunctiva clear 09/01/2015 None Full Exam - General 1994 Eyes conjunctiva /eyelids Overall: cornea clear 09/01/2015 None Full Exam - General 1994 Eyes conjunctiva /eyelids Overall: eyelids normal 09/01/2015 None Full Exam - General 1994 Eyes pupils and irises Overall: pupils equal, round, reactive to light and accomodation 09/01/2015 None Full Exam - General 1994 Ears/Nose/Throat otoscopic exam Overall: external auditory canals clear 09/01/2015 None Full Exam - General 1994 Ears/Nose/Throat otoscopic exam Overall: tympanic membranes clear 09/01/2015 None Full Exam - General 1994 Ears/Nose/Throat lips/teeth/gingiva Overall: benign lips 09/01/2015 None Full Exam - General 1994 Ears/Nose/Throat lips/teeth/gingiva Overall: normal dentition 09/01/2015 None Full Exam - General 1994 Ears/Nose/Throat oral cavity/pharynx/larynx Overall: oral mucosa clear 09/01/2015 None Full Exam - General 1994 Ears/Nose/Throat oral cavity/pharynx/larynx Overall: oropharyngeal mucosa clear 09/01/2015 None Full Exam - General 1994 Ears/Nose/Throat oral cavity/pharynx/larynx Overall: hypopharynx benign 09/01/2015 None Full Exam - General 1994 Ears/Nose/Throat oral cavity/pharynx/larynx Overall: no masses 09/01/2015 None Full Exam - General 1994 Respiratory auscultation Overall: breath sounds clear bilaterally 09/01/2015 None Full Exam - General 1994 Respiratory respiratory effort/rhythm Overall: no retractions 09/01/2015 None Full Exam - General 1994 Respiratory respiratory effort/rhythm Overall: normal rate 09/01/2015 None Full Exam - General 1994 Cardiovascular extremities Overall: no clubbing 09/01/2015 None Full Exam - General 1994 Cardiovascular auscultation of heart Overall: regular rate 09/01/2015 None Full Exam - General 1994 Cardiovascular auscultation of heart Overall: normal heart sounds 09/01/2015 None Full Exam - General 1994 Abdomen abdominal exam Overall: no tenderness 09/01/2015 None Full Exam - General 1994 Abdomen abdominal exam Overall: normal bowel sounds 09/01/2015 None Full Exam - General 1994 Lymphatic neck nodes Overall: anterior cervical chain benign 09/01/2015 None Full Exam - General 1994 Lymphatic neck nodes Overall: posterior cervical chain benign 09/01/2015 None Full Exam - General 1994 Musculoskeletal spine, ribs and pelvis Overall: spine benign 09/01/2015 None Full Exam - General 1994 Musculoskeletal spine, ribs and pelvis Overall: sacroiliac joint benign 09/01/2015 None Full Exam - General 1994 Musculoskeletal spine, ribs and pelvis Overall: good posture 09/01/2015 None Full Exam - General 1994 Musculoskeletal head and neck Overall: head atraumatic 09/01/2015 None Full Exam - General 1994 Musculoskeletal head and neck Overall: cervical spine benign 09/01/2015 None Full Exam - General 1994 Integument inspection of skin Overall: few scattered moles, no gross abnormalities 09/01/2015 None Full Exam - General 1994 Neurologic deep tendon reflexes Overall: deep tendon reflexes intact 09/01/2015 None Full Exam - General 1994 Neurologic cranial nerves Overall: crainial nerves 2 - 12 grossly intact 09/01/2015 None Full Exam - General 1994 Psychiatric orientation/consciousness Overall: oriented to person, place and time 09/01/2015 None Full Exam - General 1994 Psychiatric mood and affect Overall: normal mood and affect 09/01/2015 None Full Exam - General 1994 Constitutional general appearance Development: well developed 07/25/2015 None Full Exam - General 1994 Constitutional general appearance Development: appears stated age 1207/25/2015 None Full Exam - General 1994 Constitutional general appearance Hygiene/Attention to Grooming: good hygiene 07/25/2015 None Full Exam - General 1994 Eyes conjunctiva /eyelids Overall: conjunctiva clear 07/25/2015 None Full Exam - General 1994 Eyes conjunctiva /eyelids Overall: cornea clear 07/25/2015 None Full Exam - General 1994 Eyes conjunctiva /eyelids Overall: eyelids normal 07/25/2015 None Full Exam - General 1994 Eyes pupils and irises Overall: pupils equal, round, reactive to light and accomodation 07/25/2015 None Full Exam - General 1994 Ears/Nose/Throat otoscopic exam Overall: external auditory canals clear 07/25/2015 None Full Exam - General 1994 Ears/Nose/Throat otoscopic exam Overall: tympanic membranes clear 07/25/2015 None Full Exam - General 1994 Ears/Nose/Throat lips/teeth/gingiva Overall: benign lips 07/25/2015 None Full Exam - General 1994 Ears/Nose/Throat lips/teeth/gingiva Overall: normal dentition 07/25/2015 None Full Exam - General 1994 Ears/Nose/Throat oral cavity/pharynx/larynx Overall: oral mucosa clear 07/25/2015 None Full Exam - General 1994 Ears/Nose/Throat oral cavity/pharynx/larynx Overall: oropharyngeal mucosa clear 07/25/2015 None Full Exam - General 1994 Ears/Nose/Throat oral cavity/pharynx/larynx Overall: hypopharynx benign 07/25/2015 None Full Exam - General 1994 Ears/Nose/Throat oral cavity/pharynx/larynx Overall: no masses 07/25/2015 None Full Exam - General 1994 Respiratory auscultation Overall: breath sounds clear bilaterally 07/25/2015 None Full Exam - General 1994 Respiratory respiratory effort/rhythm Overall: no retractions 07/25/2015 None Full Exam - General 1994 Respiratory respiratory effort/rhythm Overall: normal rate 07/25/2015 None Full Exam - General 1994 Cardiovascular extremities Overall: no clubbing 07/25/2015 None Full Exam - General 1994 Cardiovascular auscultation of heart Overall: regular rate 07/25/2015 None Full Exam - General 1994 Cardiovascular auscultation of heart Overall: normal heart sounds 07/25/2015 None Full Exam - General 1994 Abdomen abdominal exam Overall: no tenderness 07/25/2015 None Full Exam - General 1994 Abdomen abdominal exam Overall: normal bowel sounds 07/25/2015 None Full Exam - General 1994 Lymphatic neck nodes Overall: anterior cervical chain benign 07/25/2015 None Full Exam - General 1994 Lymphatic neck nodes Overall: posterior cervical chain benign 07/25/2015 None Full Exam - General 1994 Musculoskeletal spine, ribs and pelvis Overall: spine benign 07/25/2015 None Full Exam - General 1994 Musculoskeletal spine, ribs and pelvis Overall: sacroiliac joint benign 07/25/2015 None Full Exam - General 1994 Musculoskeletal spine, ribs and pelvis Overall: good posture 07/25/2015 None Full Exam - General 1994 Musculoskeletal head and neck Overall: head atraumatic 07/25/2015 None Full Exam - General 1994 Musculoskeletal head and neck Overall: cervical spine benign 07/25/2015 None Full Exam - General 1994 Integument inspection of skin Overall: few scattered moles, no gross abnormalities 07/25/2015 None Full Exam - General 1994 Neurologic deep tendon reflexes Overall: deep tendon reflexes intact 07/25/2015 None Full Exam - General 1994 Neurologic cranial nerves Overall: crainial nerves 2 - 12 grossly intact 07/25/2015 None Full Exam - General 1994 Psychiatric orientation/consciousness Overall: oriented to person, place and time 07/25/2015 None Full Exam - General 1994 Psychiatric mood and affect Overall: normal mood and affect 07/25/2015 None Full Exam - General 1994 Constitutional general appearance Development: well developed 05/16/2015 None Full Exam - General 1994 Constitutional general appearance Development: appears stated age 1005/16/2015 None Full Exam - General 1994 Constitutional general appearance Hygiene/Attention to Grooming: good hygiene 05/16/2015 None Full Exam - General 1994 Eyes conjunctiva /eyelids Overall: conjunctiva clear 05/16/2015 None Full Exam - General 1994 Eyes conjunctiva /eyelids Overall: cornea clear 05/16/2015 None Full Exam - General 1994 Eyes conjunctiva /eyelids Overall: eyelids normal 05/16/2015 None Full Exam - General 1994 Eyes pupils and irises Overall: pupils equal, round, reactive to light and accomodation 05/16/2015 None Full Exam - General 1994 Ears/Nose/Throat otoscopic exam Overall: external auditory canals clear 05/16/2015 None Full Exam - General 1994 Ears/Nose/Throat otoscopic exam Overall: tympanic membranes clear 05/16/2015 None Full Exam - General 1994 Ears/Nose/Throat lips/teeth/gingiva Overall: benign lips 05/16/2015 None Full Exam - General 1994 Ears/Nose/Throat lips/teeth/gingiva Overall: normal dentition 05/16/2015 None Full Exam - General 1994 Ears/Nose/Throat oral cavity/pharynx/larynx Overall: oral mucosa clear 05/16/2015 None Full Exam - General 1994 Ears/Nose/Throat oral cavity/pharynx/larynx Overall: oropharyngeal mucosa clear 05/16/2015 None Full Exam - General 1994 Ears/Nose/Throat oral cavity/pharynx/larynx Overall: hypopharynx benign 05/16/2015 None Full Exam - General 1994 Ears/Nose/Throat oral cavity/pharynx/larynx Overall: no masses 05/16/2015 None Full Exam - General 1994 Respiratory auscultation Overall: breath sounds clear bilaterally 05/16/2015 None Full Exam - General 1994 Respiratory respiratory effort/rhythm Overall: no retractions 05/16/2015 None Full Exam - General 1994 Respiratory respiratory effort/rhythm Overall: normal rate 05/16/2015 None Full Exam - General 1994 Cardiovascular extremities Overall: no clubbing 05/16/2015 None Full Exam - General 1994 Cardiovascular auscultation of heart Overall: regular rate 05/16/2015 None Full Exam - General 1994 Cardiovascular auscultation of heart Overall: normal heart sounds 05/16/2015 None Full Exam - General 1994 Abdomen abdominal exam Overall: no tenderness 05/16/2015 None Full Exam - General 1994 Abdomen abdominal exam Overall: normal bowel sounds 05/16/2015 None Full Exam - General 1994 Lymphatic neck nodes Overall: anterior cervical chain benign 05/16/2015 None Full Exam - General 1994 Lymphatic neck nodes Overall: posterior cervical chain benign 05/16/2015 None Full Exam - General 1994 Musculoskeletal spine, ribs and pelvis Overall: spine benign 05/16/2015 None Full Exam - General 1994 Musculoskeletal spine, ribs and pelvis Overall: sacroiliac joint benign 05/16/2015 None Full Exam - General 1994 Musculoskeletal spine, ribs and pelvis Overall: good posture 05/16/2015 None Full Exam - General 1994 Musculoskeletal head and neck Overall: head atraumatic 05/16/2015 None Full Exam - General 1994 Musculoskeletal head and neck Overall: cervical spine benign 05/16/2015 None Full Exam - General 1994 Integument inspection of skin Overall: few scattered moles, no gross abnormalities 05/16/2015 None Full Exam - General 1994 Neurologic deep tendon reflexes Overall: deep tendon reflexes intact 05/16/2015 None Full Exam - General 1994 Neurologic cranial nerves Overall: crainial nerves 2 - 12 grossly intact 05/16/2015 None Full Exam - General 1994 Psychiatric orientation/consciousness Overall: oriented to person, place and time 05/16/2015 None Full Exam - General 1994 Psychiatric mood and affect Overall: normal mood and affect 05/16/2015 None Procedures Procedure Codes Date FLU VAC NO PRSV 4 SAE 3 YRS+ CPT-4: 35502 06/04/2017 ADMIN INFLUENZA VIRUS VAC CPT-4: G0008 06/04/2017 PPPS, SUBSEQ VISIT CPT -4: G0439 10/31/2016 IMMUNIZATION ADMIN CPT -4: 95046 05/16/2015 IIV4 FLU VACC NO PRESERV ID Formatting Model/CDA Sections, Assigned to/Graciela West CT: [id number] CPT-4: 88359Plzzkjz 05/16/2015 Vital Signs Date Vital 09/23/2018 Blood Pressure 1: 128/70 Code : 8480-6 BMI: 39.6 Code : 63260-0 Heart Rate 1 : 67 bpm Height: 5'9" Weight: 268 lbs 2 oz 06/16/2018 Blood Pressure 1: 142/82 Code : 8480-6 Blood Pressure 1: 126/68 Code: 8480-6 BMI: 39.1 Code: 17157-1 Heart Rate 1: 51 bpm Height: 5'9" SpO2: 99% Weight: 265 lbs 10/23/2017 Blood Pressure 1: 128/70 Code : 8480-6 BMI: 39.3 Code : 13386-9 Heart Rate 1 : 72 bpm Height: 5'9" SpO2: 98% Weight: 266 lbs 07/02/2017 Blood Pressure 1: 136/70 Code : 8480-6 BMI: 38.4 Code : 43749-6 Heart Rate 1 : 86 bpm Height: 5'9" SpO2: 94% Weight: 260 lbs 06/27/2017 Blood Pressure 1: 152/76 Code : 8480-6 Blood Pressure 2: 144/74 Code: 8480-6 Heart Rate 1: 85 bpm SpO2: 97% 06/04/2017 Blood Pressure 1: 152/86 Code : 8480-6 Blood Pressure 1: 150/70 Code: 8480-6 BMI: 38.5 Code: 25339-0 Heart Rate 1: 75 bpm Height: 5'9" SpO2: 97% Weight: 261 lbs 04/03/2017 Blood Pressure 1: 138/64 Code : 8480-6 BMI: 38.8 Code : 84840-3 Heart Rate 1 : 62 bpm Height: 5'9" SpO2: 95% Weight: 263 lbs 02/28/2017 Blood Pressure 1: 128/82 Code : 8480-6 BMI: 39.4 Code : 17856-5 Heart Rate 1 : 70 bpm Height: 5'9" SpO2: 95% Weight: 267 lbs 10/31/2016 Blood Pressure 1: 134/76 Code : 8480-6 BMI: 39.9 Code : 27576-5 Heart Rate 1 : 70 bpm Height: 5'9" SpO2: 98% Waist Measure (cm): 102 cm Weight: 270 lbs 10/29/2016 Blood Pressure 1: 148/80 Code : 8480-6 Blood Pressure 1: 138/78 Code: 8480-6 BMI: 39.9 Code: 25323-5 Heart Rate 1: 68 bpm Height: 5'9" SpO2: 98% Weight: 270 lbs 12/22/2015 Blood Pressure 1: 138/82 Code : 8480-6 BMI: 39.9 Code : 69103-7 Heart Rate 1 : 78 bpm Height: 5'9" SpO2: 96% Weight: 270 lbs 11/08/2015 Blood Pressure 1: 144/70 Code : 8480-6 BMI: 40.3 Code : 84235-2 Heart Rate 1 : 70 bpm Height: 5'9" SpO2: 99% Weight: 273 lbs 09/01/2015 Blood Pressure 1: 128/88 Code : 8480-6 BMI: 39.3 Code : 11803-6 Heart Rate 1 : 80 bpm Height: 5'9" SpO2: 97% Weight: 266 lbs 07/25/2015 Blood Pressure 1: 150/78 Code : 8480-6 Blood Pressure 1: 138/70 Code: 8480-6 BMI: 39.0 Code: 91332-4 Heart Rate 1: 80 bpm Height: 5'9" SpO2: 97% Weight: 264 lbs 05/16/2015 Blood Pressure 1: 132/76 Code : 8480-6 BMI: 38.0 Code : 20510-4 Heart Rate 1 : 70 bpm Height: 5'9" SpO2: 95% Weight: 257 lbs Functional Status No Functional Status data History of Present Illness Symptom Name Status Result Effective Date Notes hypertension Onset and Resolution ongoing 06/16/2018 None hypertension Onset of Symptom during adulthood 06/16/2018 None hypertension Blood Pressure Values patient checking blood pressure at home - did not bring in readings 06/16/2018 None hypertension Alleviating Factors medication 06/16/2018 None hypertension Pertinent Findings Denies dizziness 06/16/2018 None hypertension Pertinent Findings Denies dyspnea 06/16/2018 None hypertension Pertinent Findings Denies edema 06/16/2018 None weight gain/obesity Location globally 06/16/2018 None weight gain/obesity Onset and Resolution ongoing 06/16/2018 None hypertension Onset and Resolution ongoing 10/23/2017 None hypertension Onset of Symptom during adulthood 10/23/2017 None hypertension Blood Pressure Values patient checking blood pressure at home - did not bring in readings 10/23/2017 None hypertension Alleviating Factors medication 10/23/2017 None hypertension Pertinent Findings Denies dizziness 10/23/2017 None hypertension Pertinent Findings Denies dyspnea 10/23/2017 None hypertension Pertinent Findings Denies edema 10/23/2017 None sleep apnea-obstruction Quality intermittent 10/23/2017 None weight gain/obesity Location globally 10/23/2017 None weight gain/obesity Onset and Resolution ongoing 10/23/2017 None finger and hand pain Exacerbating Factors finger extension 10/23/2017 None finger and hand pain Exacerbating Factors finger flexion 10/23/2017 None finger and hand pain Limitation on Activities does not limit activities 10/23/2017 None finger and hand pain Pertinent Findings pain with movement 10/23/2017 None finger and hand pain Pertinent Findings stiffness 10/23/2017 None hypertension Onset and Resolution ongoing 07/02/2017 None hypertension Onset of Symptom during adulthood 07/02/2017 None hypertension Blood Pressure Values patient checking blood pressure at home - did not bring in readings 07/02/2017 None hypertension Alleviating Factors medication 07/02/2017 None hypertension Pertinent Findings Denies dizziness 07/02/2017 None hypertension Pertinent Findings Denies dyspnea 07/02/2017 None hypertension Pertinent Findings Denies edema 07/02/2017 None sleep apnea-obstruction Quality intermittent 07/02/2017 None sleep apnea-obstruction Onset and Resolution ongoing 07/02/2017 None mole check Location-Major on the abdomen 07/02/2017 None mole check Location-[place] on the left side of the abdomen 07/02/2017 None mole check Changing Moles changing 07/02/2017 None mole check Changing Moles changing in shape 07/02/2017 None mole check Onset and Resolution ongoing 07/02/2017 None mole check Onset and Resolution sudden in onset 07/02/2017 None mole check Pertinent Findings Denies history of travel 07/02/2017 None mole check Pertinent Findings Denies itching 07/02/2017 None mole check Pertinent Findings Denies pain 07/02/2017 None mole check Pertinent Findings Denies tenderness 07/02/2017 None hypertension Onset and Resolution ongoing 06/04/2017 None hypertension Onset of Symptom during adulthood 06/04/2017 None hypertension Blood Pressure Values patient checking blood pressure at home - did not bring in readings 06/04/2017 None hypertension Alleviating Factors medication 06/04/2017 None hypertension Pertinent Findings Denies dizziness 06/04/2017 None hypertension Pertinent Findings Denies dyspnea 06/04/2017 None hypertension Pertinent Findings Denies edema 06/04/2017 None hyperlipidemia Onset and Resolution gradual in onset 06/04/2017 None hyperlipidemia Onset and Resolution ongoing 06/04/2017 None hyperlipidemia Onset of Symptom during adulthood 06/04/2017 None hyperlipidemia Alleviating Factors medication 06/04/2017 None hyperlipidemia Exacerbating Factors diet 06/04/2017 None sleep apnea-obstruction Quality intermittent 06/04/2017 None sleep apnea-obstruction Onset and Resolution ongoing 06/04/2017 None hypertension Onset and Resolution ongoing 02/28/2017 None hypertension Onset of Symptom during adulthood 02/28/2017 None hypertension Blood Pressure Values patient checking blood pressure at home - did not bring in readings 02/28/2017 None hypertension Alleviating Factors medication 02/28/2017 None hypertension Pertinent Findings Denies dizziness 02/28/2017 None hypertension Pertinent Findings Denies dyspnea 02/28/2017 None hypertension Pertinent Findings Denies edema 02/28/2017 None hyperlipidemia Onset and Resolution gradual in onset 02/28/2017 None hyperlipidemia Onset and Resolution ongoing 02/28/2017 None hyperlipidemia Onset of Symptom during adulthood 02/28/2017 None hyperlipidemia Alleviating Factors medication 02/28/2017 None hyperlipidemia Exacerbating Factors diet 02/28/2017 None sleep apnea-obstruction Quality intermittent 02/28/2017 None sleep apnea-obstruction Onset and Resolution ongoing 02/28/2017 None Annual Medicare Wellness Exam Alcohol Use does not drink any alcohol 10/31/2016 None Annual Medicare Wellness Exam Aspirin Use no 10/31/2016 None Annual Medicare Wellness Exam Blood Glucose (self reported) don't know 10/31/2016 None Annual Medicare Wellness Exam Blood Pressure (self reported ) borderline (120/80 - 139/89) 10/31/2016 None Annual Medicare Wellness Exam Cholesterol (self reported) don't know 10/31/2016 None Annual Medicare Wellness Exam Depression (last 6 months) almost never 10/31/2016 None Annual Medicare Wellness Exam Depression or Hopelessness almost never 10/31/2016 None Annual Medicare Wellness Exam Describe Your Health fair 10/31/2016 None Annual Medicare Wellness Exam Exercise Habits exercises 3 days per week 10/31/2016 None Annual Medicare Wellness Exam Exercise Habits exercises 20 minutes per day 10/31/2016 None Annual Medicare Wellness Exam Handling Stress usually marli effectively 10/31/2016 None Annual Medicare Wellness Exam Hemaglobin A-1C (self reported ) don't know 10/31/2016 None Annual Medicare Wellness Exam Hours of Sleep 7 10/31/2016 None Annual Medicare Wellness Exam Interaction with Friends yes 10/31/2016 None Annual Medicare Wellness Exam Interests & Pleasure almost all of the time 10/31/2016 None Annual Medicare Wellness Exam Life Satisfaction very satisfied 10/31/2016 None Annual Medicare Wellness Exam Motor Vehicle Safety always fastens seat belt: y 10/31/2016 None Annual Medicare Wellness Exam Motor Vehicle Safety drives after drinking: n 10/31/2016 None Annual Medicare Wellness Exam Motor Vehicle Safety rides with someone who has been drinking: n 2016 None Annual Medicare Wellness Exam Nutrition servings of fried food / high fat foods per day: 1 2016 None Annual Medicare Wellness Exam Nutrition servings of high fiber / whole grain per day: 2 10/31/2016 None Annual Medicare Wellness Exam Nutrition servings of vegetables / fruit per day: 3 10/31/2016 None Annual Medicare Wellness Exam Smoking and Tobacco Use non smoker 10/31/2016 None Annual Medicare Wellness Exam Social & Emotional Support always 10/31/2016 None Annual Medicare Wellness Exam Stress some of the time 10/31/2016 None Annual Medicare Wellness Exam Sun Exposure protects skin when outdoors: y 10/31/2016 None hypertension Onset and Resolution ongoing 10/29/2016 None hypertension Onset of Symptom during adulthood 10/29/2016 None hypertension Blood Pressure Values patient checking blood pressure at home - did not bring in readings 10/29/2016 -Approx. 138/84 at home hypertension Alleviating Factors medication 10/29/2016 None hypertension Pertinent Findings Denies dizziness 10/29/2016 None hypertension Pertinent Findings Denies dyspnea 10/29/2016 None hypertension Pertinent Findings Denies edema 10/29/2016 None hyperlipidemia Onset and Resolution gradual in onset 10/29/2016 None hyperlipidemia Onset and Resolution ongoing 10/29/2016 None hyperlipidemia Onset of Symptom during adulthood 10/29/2016 None hyperlipidemia Alleviating Factors medication 10/29/2016 None hyperlipidemia Exacerbating Factors diet 10/29/2016 None sleep apnea-obstruction Quality intermittent 10/29/2016 None sleep apnea-obstruction Onset and Resolution ongoing 10/29/2016 None skin lesion Location in the mid-neck area 10/29/2016 None skin lesion Quality enlarging 10/29/2016 None skin lesion Onset and Resolution ongoing 10/29/2016 None skin lesion Onset of Symptom 1.5 years ago 10/29/2016 None hypertension Quality chronic 12/22/2015 None hypertension Onset and Resolution ongoing 12/22/2015 None hypertension Onset of Symptom during adulthood 12/22/2015 None hypertension Severity mild 12/22/2015 None hypertension Significant Family History hypertension 12/22/2015 None hypertension Alleviating Factors medication 12/22/2015 None hypertension Exacerbating Factors change in dietary habits 12/22/2015 None hypertension Exacerbating Factors stress 12/22/2015 None hypertension Pertinent Findings Denies decreased energy 12/22/2015 None hypertension Pertinent Findings Denies dizziness 12/22/2015 None hypertension Pertinent Findings Denies dyspnea 12/22/2015 None hypertension Pertinent Findings Denies edema 12/22/2015 None hypertension Pertinent Findings Denies muscle weakness 12/22/2015 None hypertension Pertinent Findings obesity 12/22/2015 None hypertension Blood Pressure Values not checking blood pressure at home 12/22/2015 None hypertension Quality chronic 11/08/2015 None hypertension Onset and Resolution ongoing 11/08/2015 None hypertension Onset of Symptom during adulthood 11/08/2015 None hypertension Severity mild 11/08/2015 None hypertension Significant Family History hypertension 11/08/2015 None hypertension Alleviating Factors medication 11/08/2015 None hypertension Exacerbating Factors change in dietary habits 11/08/2015 None hypertension Exacerbating Factors stress 11/08/2015 None hypertension Pertinent Findings decreased energy 11/08/2015 None hypertension Pertinent Findings Denies dizziness 11/08/2015 None hypertension Pertinent Findings Denies edema 11/08/2015 None hypertension Pertinent Findings Denies muscle weakness 11/08/2015 None hypertension Pertinent Findings obesity 11/08/2015 None low back pain Location lumbar spine 11/08/2015 None low back pain Quality intermittent 11/08/2015 None low back pain Onset and Resolution ongoing 11/08/2015 None low back pain Pertinent Findings Denies female 11/08/2015 None low back pain Pertinent Findings male 11/08/2015 None low back pain Pertinent Findings Denies bowel disturbance 11/08/2015 None low back pain Pertinent Findings pain with movement 11/08/2015 None low back pain Pertinent Findings extremity numbness 11/08/2015 None low back pain Pertinent Findings weakness 11/08/2015 None hypertension Pertinent Findings Denies dyspnea 11/08/2015 None fatigue Quality intermittent 11/08/2015 None hypertension Quality chronic 09/01/2015 None hypertension Onset and Resolution ongoing 09/01/2015 None hypertension Onset of Symptom during adulthood 09/01/2015 None hypertension Severity mild 09/01/2015 None hypertension Significant Family History hypertension 09/01/2015 None hypertension Alleviating Factors medication 09/01/2015 None hypertension Exacerbating Factors change in dietary habits 09/01/2015 None hypertension Exacerbating Factors stress 09/01/2015 None hypertension Pertinent Findings Denies decreased energy 09/01/2015 None hypertension Pertinent Findings Denies dizziness 09/01/2015 None hypertension Pertinent Findings Denies edema 09/01/2015 None hypertension Pertinent Findings Denies muscle weakness 09/01/2015 None hypertension Pertinent Findings obesity 09/01/2015 None low back pain Location lumbar spine 09/01/2015 None low back pain Quality intermittent 09/01/2015 None low back pain Onset and Resolution ongoing 09/01/2015 None low back pain Pertinent Findings Denies female 09/01/2015 None low back pain Pertinent Findings male 09/01/2015 None low back pain Pertinent Findings Denies bowel disturbance 09/01/2015 None low back pain Pertinent Findings pain with movement 09/01/2015 None low back pain Pertinent Findings weakness 09/01/2015 None low back pain Pertinent Findings extremity numbness 09/01/2015 None hives (urticaria) Triggers no known triggers 07/25/2015 None hives (urticaria) Alleviating Factors no alleviating factors 07/25/2015 None hives (urticaria) Pertinent Findings itching 07/25/2015 None hives (urticaria) Pertinent Findings pain 07/25/2015 None hypertension Quality chronic 07/25/2015 None hypertension Onset and Resolution ongoing 07/25/2015 None hypertension Onset of Symptom during adulthood 07/25/2015 None hypertension Severity mild 07/25/2015 None hypertension Significant Family History hypertension 07/25/2015 None hypertension Alleviating Factors medication 07/25/2015 None hypertension Exacerbating Factors change in dietary habits 07/25/2015 None hypertension Exacerbating Factors stress 07/25/2015 None hypertension Pertinent Findings Denies decreased energy 07/25/2015 None hypertension Pertinent Findings Denies dizziness 07/25/2015 None hypertension Pertinent Findings Denies edema 07/25/2015 None hypertension Pertinent Findings Denies muscle weakness 07/25/2015 None hypertension Pertinent Findings obesity 07/25/2015 None hives (urticaria) Onset and Resolution resolved 07/25/2015 at this time hives (urticaria) Pertinent Findings itching 05/16/2015 None hives (urticaria) Pertinent Findings pain 05/16/2015 None hives (urticaria) Alleviating Factors no alleviating factors 05/16/2015 None hives (urticaria) Triggers no known triggers 05/16/2015 None hypertension Quality chronic 05/16/2015 None hypertension Onset and Resolution ongoing 05/16/2015 None hypertension Onset of Symptom during adulthood 05/16/2015 None hypertension Severity mild 05/16/2015 None hypertension Significant Family History hypertension 05/16/2015 None hypertension Alleviating Factors medication 05/16/2015 None hypertension Exacerbating Factors stress 05/16/2015 None hypertension Exacerbating Factors change in dietary habits 05/16/2015 None hypertension Pertinent Findings Denies edema 05/16/2015 None hypertension Pertinent Findings Denies dizziness 05/16/2015 None hypertension Pertinent Findings Denies decreased energy 05/16/2015 None hypertension Pertinent Findings obesity 05/16/2015 None hypertension Pertinent Findings Denies muscle weakness 05/16/2015 None Advance Directives No Advance Directive data Encounters Encounter Performer Location Codes Date (70033) Miscellaneous no charge Diagnosis: Other obesity due to excess calories[ICD10: E66.09] Merced Recinos MD, [facility] CPT-4: 45469 09/23/2018 [id number] EST. PATIENT, LEVEL IV Diagnosis: Essential (primary) hypertension[ICD10: I10] Diagnosis: Other obesity due to excess calories[ICD10: E66.09] [facility] CPT-4: 75351 06/16/2018 ([id number]) 41741 EST. PATIENT, LEVEL III Diagnosis: Essential (primary) hypertension[ICD10: I10] Diagnosis: Other obesity due to excess calories[ICD10: E66.09] [facility] CPT-4: 69401 10/23/2017 ([id number]) 09383 EST. PATIENT, LEVEL III Diagnosis: Essential (primary) hypertension[ICD10: I10] Diagnosis: Other obesity due to excess calories[ICD10: E66.09] Diagnosis: Obstructive sleep apnea (adult) (pediatric)[ICD10: G47.33] [facility] CPT-4: 23740 07/02/2017 ([id number]) Miscellaneous no charge Diagnosis: Essential (primary) hypertension[ICD10: I10] [facility] CPT-4: 17507 06/27/2017 ([id number]) 02603 EST. PATIENT, LEVEL IV Diagnosis: Essential (primary) hypertension[ICD10: I10] Diagnosis: Obstructive sleep apnea (adult) (pediatric)[ICD10: G47.33] Diagnosis: Encounter for immunization[ICD10: Z23] [facility] CPT-4: 18826 06/04/2017 ([id number]) Miscellaneous no charge Diagnosis: Body mass index (BMI) 38.0-38.9, adult[ICD10: Z68.38] [facility] CPT-4: 97529 04/03/[id number]) [id number] EST. PATIENT, LEVEL IV Diagnosis: Sleep related hypoventilation in conditions classified elsewhere[ ICD10: G47.36] Diagnosis: Obstructive sleep apnea (adult) (pediatric)[ICD10: G47.33] Diagnosis: Essential (primary) hypertension[ICD10: I10] Diagnosis: Other obesity due to excess calories[ICD10: E66.09] Merced Recinos MD, [facility] CPT-4: 23828 02/28/2017 [id number]) 00622 EST. PATIENT, LEVEL IV Diagnosis: Obstructive sleep apnea (adult) (pediatric)[ICD10: G47.33] Diagnosis: Sleep related hypoventilation in conditions classified elsewhere[ ICD10: G47.36] Diagnosis: Periodic limb movement disorder[ICD10: G47.61] Diagnosis: Essential (primary) hypertension[ICD10: I10] Diagnosis: Mixed hyperlipidemia[ICD10: E78.2] Merced Recinos MD, [facility] CPT-4: 13388 10/29/2016 [id number]) 01470 EST. PATIENT, LEVEL III Diagnosis: Hypertensive chronic kidney disease with stage 1 through stage 4 chronic kidney disease, or unspecified chronic kidney disease[ICD10: I12.9] Diagnosis: Body mass index (BMI) 40.0-44.9, adult[ICD10: Z68.41] Merced Recinos MD, [facility] CPT-4: 49977 12/22/2015 [id number]) 54474 EST. PATIENT, LEVEL IV Diagnosis: Hypertensive chronic kidney disease with stage 1 through stage 4 chronic kidney disease, or unspecified chronic kidney disease[ICD10: I12.9] Diagnosis: Low back pain[ICD10: M54.5] Diagnosis: Body mass index (BMI) 40.0-44.9, adult[ICD10: Z68.41] Merced Recinos MD [facility] CPT-4: 36730 11/08/2015 [id number]) 59621 EST. PATIENT, LEVEL III Diagnosis: Hypertensive chronic kidney disease with stage 1 through stage 4 chronic kidney disease, or unspecified chronic kidney disease[ICD10: I12.9] Diagnosis: Bilateral primary osteoarthritis of knee[ICD10: M17.0] Diagnosis: Low back pain[ICD10: M54.5] [facility] CPT- 4: 35931 09/01/2015 ([id number]) 92731 EST. PATIENT, LEVEL III Diagnosis: Hypertensive chronic kidney disease with stage 1 through stage 4 chronic kidney disease, or unspecified chronic kidney disease[ICD10: I12.9] Diagnosis: Low back pain[ICD10: M54.5] [facility] CPT- 4: 90111 07/25/2015 ([id number]) PREV VISIT NEW AGE 40-64 Diagnosis: Encounter for general adult medical examination without abnormal findings[ICD10: Z00.00] [facility] CPT-4: 93083 05/16/2015 Plan of Care Planned Activity Notes Codes Status Date Patient Education: Patient Medication Summary Completed 09/23/2018 Patient Education: Obesity Completed 09/23/2018 Visit Plan: Hypertension - well controlled - continue with current medications, continue with no added salt diet. Pt has been encouraged to exercise daily. The pt has been advised to call the office if there are any acute concerns about change in blood pressure readings at home. Obesity - chronic issue with this patient. The pt has been counseled about diet changes, calorie restriction, and need to exercise. Pt will RTC in one month for weight check. 06/16/2018 Appointment: Ban Mtz WPtel: [address] [place], [place] [id number] (15 min) Moderate 06/16/2018 Patient Education: Patient Medication Summary Completed 06/16/2018 Appointment: Nurse Visit 06/11/2018 Appointment: Ban Mtz WPtel[facility] [facility] - Annual Wellness Visit 11/08/2017 Visit Plan: Hypertension - well controlled - continue with current medications, continue with no added salt diet. Pt has been encouraged to exercise daily. The pt has been advised to call the office if there are any acute concerns about change in blood pressure readings at home. Obesity - chronic issue with this patient. The pt has been counseled about diet changes, calorie restriction, and need to exercise. Pt will RTC in one month for weight check. 10/23/2017 Appointment: Merced Recinos WPtel: [address] [facility] (15 min) Moderate 10/23/2017 Patient Education: Patient Medication Summary Completed 10/23/2017 Visit Plan: Hypertension - well controlled - continue with current medications, continue with no added salt diet. Pt has been encouraged to exercise daily. The pt has been advised to call the office if there are any acute concerns about change in blood pressure readings at home. Skin tag - does not need removed at this time as it is not inflammed. Obesity - rx for phentermine x 2 month supply given to pt today. Pt reports that his CPAP is still working well. 07/02/2017 Appointment: Merced Recinos WPtel: [address] [facility] (15 min) Moderate 07/02/2017 Patient Education: Patient Medication Summary Completed 07/02/2017 Patient Education: Obesity Completed 07/02/2017 Appointment: Nurse Visit 06/27/2017 Patient Education: Patient Medication Summary Completed 06/27/2017 Visit Plan: Hypertension - uncontrolled - the patient's medications have been modified as documented in the visit note. The patient has been counseled to cut back on salt in diet for a no added salt diet, low fat diet, start an exercise program with low weight bearing exercises and higher aerobic activity for heart health. The patient is to check blood pressure readings as an outpatient and either fax, call, or email the readings to the office next week for practitioner to review. The pt is to call for acute concerns. Pt instructed to change his blood pressure medications as follows: hydrochlorothiazide 25mg - take 1/2 pill daily with the plain losartan - when your plain losartan prescription is gone, then fill the NEW RX for the combination pill of Losartan/hctz 100/12.5mg daily. Sleep Apnea - pt feeling rested on the CPAP - he states that he is sleeping better at night and waking up feeling rested. 06/04/2017 Appointment: Merced Recinos [facility]Ptel[id number] (15 min) Moderate 06/04/2017 Patient Education: Patient Medication Summary Completed 06/04/2017 Patient Education: Obesity Completed 06/04/2017 Appointment: Merced Recinos WPtel[id number] (15 min) Moderate 05/01/2017 Appointment: Nurse Visit 04/03/2017 Patient Education: Patient Medication Summary Completed 04/03/2017 Patient Education: Obesity Completed 04/03/2017 Visit Plan: Sleep apena - pt reports that he is sleeping better, does not have to get up as frequently at night. Pt continues to benefit from his CPAP. He is to continue at current settings. Obesity - chronic issue with this patient. The pt has been counseled about diet changes, calorie restriction, and need to exercise. Pt will RTC in one month for weight check. weight today in office - 267 start with 1/2 pill of the phentermine x 4 days - then may increase up to a full pill daily weight check in one month Hypertension - well controlled - continue with current medications, continue with no added salt diet. Pt has been encouraged to exercise daily. The pt has been advised to call the office if there are any acute concerns about change in blood pressure readings at home. 02/28/2017 Appointment: Merced Recinos WPtel[id number] (15 min) Moderate 02/28/2017 Patient Education: Patient Medication Summary Completed 02/28/2017 Patient Education: Obesity Completed 02/28/2017 Visit Plan: Medicare Exam - today we discussed the patients past history, immunizations, preventative exams/evaluations - colonoscopy, fecal occult blood testing, routine labs for renal function, glucose, cholesterol, osteoporosis evaluations, cardiovascular testing and cancer screenings. We have also discussed mental health and the signs/symptoms of depression. The patient was advised of home safety evaluations and the need to make sure that as the aging process continues, we need to be aware of different ways to make the home a safer place to reside. The patient has also been counseled that exercise is necessary - and of utmost importance as we age to help decrease fall risk and to maintain independece in the home. Today we discussed the need for the patient to create paperwork for Advanced directives as well as for the patient to provide this office with a copy of her DOPA paperwork for health care surrogate. 10/31/2016 Appointment: Ban M[facility]Ptel[facility] [facility] [facility] - Annual Wellness Visit 10/31/2016 Patient Education: Patient Medication Summary Completed 10/31/2016 Visit Plan: Observed hypoventilation and movement of legs - with daytime hypersomnolence - recommended sleep study. Hypertension - well controlled - continue with current medications, continue with no added salt diet. Pt has been encouraged to exercise daily. The pt has been advised to call the office if there are any acute concerns about change in blood pressure readings at home. Hyperlipidemia - pt has been counseled about appropriate diet , exercise, and need for low fat food choices. I have discussed the need for the patient to take medications as prescribed. If the patient has negative side effects from the medication, they are to CALL the office and not abruptly discontinue the medication without discussion with a practitioner in the office. We will check labs in 3-6 months for follow up on the patient's chronic medical problem and to assure normal liver response to medications. 10/29/2016 Appointment: Merced Recinos WPtel: [address] [facility] (15 min) Moderate 10/29/2016 Patient Education: Patient Medication Summary Completed 10/29/2016 Patient Education: Obesity Completed 10/29/2016 Appointment: (15 min) Moderate 01/02/2016 Visit Plan: Hypertension - well controlled - continue with current medications, continue with no added salt diet. Pt has been encouraged to exercise daily. The pt has been advised to call the office if there are any acute concerns about change in blood pressure readings at home. RX for contrave two bid 12/22/2015 Appointment: Merced Recinos WPtel: [facility] (15 min) Moderate 12/22/2015 Patient Education: Patient Medication Summary Completed 12/22/2015 Patient Education: Obesity Completed 12/22/2015 Visit Plan: Hypertension - well controlled - continue with current medications, continue with no added salt diet. Pt has been encouraged to exercise daily. The pt has been advised to call the office if there are any acute concerns about change in blood pressure readings at home. Obesity - chronic issue with this patient. The pt has been counseled about diet changes, calorie restriction, and need to exercise. Pt will RTC in one month for weight check. Low Back pain - recommended pt to start stretches for his back - and keep gabapentin dose as directed. 11/08/2015 Patient Education: Patient Medication Summary Completed 11/08/2015 Patient Education: Obesity Completed 11/08/2015 Appointment: Merced Recinos WPtel: [address] [facility] (15 min) Moderate 09/08/2015 Visit Plan: Hypertension - well controlled - continue with current medications, continue with no added salt diet. Pt has been encouraged to exercise daily. The pt has been advised to call the office if there are any acute concerns about change in blood pressure readings at home. OA - recommended refill of Celebrex brand name as the patient has not had control of discomfort with the generic celebrex 09/01/2015 Appointment: Merced Recinos WPtel: [facility]7 [facility] (15 min) Moderate 09/01/2015 Patient Education: Patient Medication Summary Completed 09/01/2015 Appointment: Merced Recinos WPtel: [facility]8 [facility] [place] (15 min) Moderate 08/29/2015 Visit Plan: Hypertension - well controlled - continue with current medications, continue with no added salt diet. Pt has been encouraged to exercise daily. The pt has been advised to call the office if there are any acute concerns about change in blood pressure readings at home. Low back pain with history of back surgery in [place] - pt had fusion of lumbar spine - will order an MRI of lumbar and sacral spine - sample of viagra given in clinic today as pt feels that the cialis has not helped lately. 07/25/2015 Appointment: Merced Recinos WPtel: [facility]3 [facility] [place] (15 min) Moderate 07/25/2015 Patient Education: Patient Medication Summary Completed 07/25/2015 Visit Plan: Well Adult - pt was counseled about diet, exercise, and encouraged to follow a heart healthy diet and increase activity level. The patient was instructed to RTC yearly for well adult exams and PRN for acute illnesses. The pt was also instructed to have yearly labs for check of cholesterol, thyroid, chem panel, CBC, and renal functioning. Chronic HTN and Renal Insufficiency - I have recommended that we need to Optimize his medications as he has been on an CONSTANTINO-I and ARB and Norvasc - therefore I have recommended the following changes: INCREASE LOSARTAN TO 100MG (YOU CAN USE UP YOUR CURRENT SUPPLY BY TAKING 50MG 2 PILLS DAILY UNTIL THE SUPPLY IS GONE) - THEN FILL THE NEW RX. DECREASE THE LISIONPRIL TO 40MG 1/2 PILL - AND WE WILL THEN FURTHER DECREASE THIS MEDICAITON WE ARE ABLE BASED ON THE BLOOD PRESSURE READINGS. He will RTC in 6 weeks. 05/16/2015 Appointment: Merced Recinos WPtel: [facility] [place] ([place]) New Patient 05/16/2015 Patient Education: Patient Medication Summary Completed 05/16/2015 Instructions Comment . Hypertension - well controlled - continue with current medications, continue with no added salt diet. Pt has been encouraged to exercise daily. The pt has been advised to call the office if there are any acute concerns about change in blood pressure readings at home. Obesity - chronic issue with this patient. The pt has been counseled about diet changes, calorie restriction, and need to exercise. Pt will RTC in one month for weight check. Low Back pain - recommended pt to start stretches for his back - and keep gabapentin dose as directed. . Hypertension - well controlled - continue with current medications, continue with no added salt diet. Pt has been encouraged to exercise daily. The pt has been advised to call the office if there are any acute concerns about change in blood pressure readings at home. Obesity - chronic issue with this patient. The pt has been counseled about diet changes, calorie restriction, and need to exercise. Pt will RTC in one month for weight check. . Medicare Exam - today we discussed the patients past history, immunizations, preventative exams/evaluations - colonoscopy, fecal occult blood testing, routine labs for renal function, glucose, cholesterol, osteoporosis evaluations, cardiovascular testing and cancer screenings. We have also discussed mental health and the signs/symptoms of depression. The patient was advised of home safety evaluations and the need to make sure that as the aging process continues, we need to be aware of different ways to make the home a safer place to reside. The patient has also been counseled that exercise is necessary - and of utmost importance as we age to help decrease fall risk and to maintain independece in the home. Today we discussed the need for the patient to create paperwork for Advanced directives as well as for the patient to provide this office with a copy of her DOPA paperwork for health care surrogate. . Hypertension - well controlled - continue with current medications, continue with no added salt diet. Pt has been encouraged to exercise daily. The pt has been advised to call the office if there are any acute concerns about change in blood pressure readings at home. OA - recommended refill of Celebrex brand name as the patient has not had control of discomfort with the generic celebrex . Hypertension - well controlled - continue with current medications, continue with no added salt diet. Pt has been encouraged to exercise daily. The pt has been advised to call the office if there are any acute concerns about change in blood pressure readings at home. Skin tag - does not need removed at this time as it is not inflammed. Obesity - rx for phentermine x 2 month supply given to pt today. Pt reports that his CPAP is still working well. INCREASE LOSARTAN TO 100MG (YOU CAN USE UP YOUR CURRENT SUPPLY BY TAKING 50MG 2 PILLS DAILY UNTIL THE SUPPLY IS GONE) - THEN FILL THE NEW RX. DECREASE THE LISIONPRIL TO 40MG 1/2 PILL - AND WE WILL THEN FURTHER DECREASE THIS MEDICAITON WE ARE ABLE BASED ON THE BLOOD PRESSURE READINGS. . Well Adult - pt was counseled about diet, exercise, and encouraged to follow a heart healthy diet and increase activity level. The patient was instructed to RTC yearly for well adult exams and PRN for acute illnesses. The pt was also instructed to have yearly labs for check of cholesterol, thyroid, chem panel, CBC, and renal functioning. Chronic HTN and Renal Insufficiency - I have recommended that we need to Optimize his medications as he has been on an CONSTANTINO-I and ARB and Norvasc - therefore I have recommended the following changes: INCREASE LOSARTAN TO 100MG (YOU CAN USE UP YOUR CURRENT SUPPLY BY TAKING 50MG 2 PILLS DAILY UNTIL THE SUPPLY IS GONE) - THEN FILL THE NEW RX. DECREASE THE LISIONPRIL TO 40MG 1/2 PILL - AND WE WILL THEN FURTHER DECREASE THIS MEDICAITON WE ARE ABLE BASED ON THE BLOOD PRESSURE READINGS. He will RTC in 6 weeks. . Observed hypoventilation and movement of legs - with daytime hypersomnolence - recommended sleep study. Hypertension - well controlled - continue with current medications, continue with no added salt diet. Pt has been encouraged to exercise daily. The pt has been advised to call the office if there are any acute concerns about change in blood pressure readings at home. Hyperlipidemia - pt has been counseled about appropriate diet, exercise, and need for low fat food choices. I have discussed the need for the patient to take medications as prescribed. If the patient has negative side effects from the medication, they are to CALL the office and not abruptly discontinue the medication without discussion with a practitioner in the office. We will check labs in 3-6 months for follow up on the patient's chronic medical problem and to assure normal liver response to medications. hydrochlorothiazide 25mg - take 1/2 pill daily with the plain lostartan - when your plain losartan prescription is gone, then fill the NEW RX for the combination pill of Losartan/hctz 100/12.5mg daily. . Hypertension - uncontrolled - the patient's medications have been modified as documented in the visit note. The patient has been counseled to cut back on salt in diet for a no added salt diet, low fat diet, start an exercise program with low weight bearing exercises and higher aerobic activity for heart health. The patient is to check blood pressure readings as an outpatient and either fax , call, or email the readings to the office next week for practitioner to review. The pt is to call for acute concerns. Pt instructed to change his blood pressure medications as follows: hydrochlorothiazide 25mg - take 1/2 pill daily with the plain losartan - when your plain losartan prescription is gone, then fill the NEW RX for the combination pill of Losartan/hctz 100/12.5mg daily. Sleep Apnea - pt feeling rested on the CPAP - he states that he is sleeping better at night and waking up feeling rested. . Hypertension - well controlled - continue with current medications, continue with no added salt diet. Pt has been encouraged to exercise daily. The pt has been advised to call the office if there are any acute concerns about change in blood pressure readings at home. Low back pain with history of back surgery in [place] - pt had fusion of lumbar spine - will order an MRI of lumbar and sacral spine - sample of viagra given in clinic today as pt feels that the cialis has not helped lately. . Hypertension - well controlled - continue with current medications, continue with no added salt diet. Pt has been encouraged to exercise daily. The pt has been advised to call the office if there are any acute concerns about change in blood pressure readings at home. Obesity - chronic issue with this patient. The pt has been counseled about diet changes, calorie restriction, and need to exercise. Pt will RTC in one month for weight check. . Hypertension - well controlled - continue with current medications, continue with no added salt diet. Pt has been encouraged to exercise daily. The pt has been advised to call the office if there are any acute concerns about change in blood pressure readings at home. RX for contrave two bid weight today in office - 267 start with 1/2 pill of the phentermine x 4 days - then may increase up to a full pill daily weight check in one month . Sleep apena - pt reports that he is sleeping better, does not have to get up as frequently at night. Pt continues to benefit from his CPAP. He is to continue at current settings. Obesity - chronic issue with this patient. The pt has been counseled about diet changes, calorie restriction, and need to exercise. Pt will RTC in one month for weight check. weight today in office - 267 start with 1/2 pill of the phentermine x 4 days - then may increase up to a full pill daily weight check in one month Hypertension - well controlled - continue with current medications, continue with no added salt diet. Pt has been encouraged to exercise daily. The pt has been advised to call the office if there are any acute concerns about change in blood pressure readings at home.
--- OUTSIDE RECORDS SUMMARY | 2018-12-12 06:54 | XMS REPORT | CCD ---
Author Author [facility]ced [facility] Organization [facility] Address [address] [place] [address] Phone Care Team Providers Care Healthcare Advisory Services Manager Name Role Phone PP Unavailable CCM Unavailable Summary Purpose Interface Exchange Insurance Providers Payer name Policy type / Coverage type Covered republican ID Effective Begin Date Effective End Date WPS Medicare Part B Medicare Part B [id number] Unknown AARP Medicare Part B [id number] Unknown Family history Mother Diagnosis Age At [...] Fill Instructions phentermine 37.5 mg tablet RxNorm: 269239 1 Tablet(s) PO daily 09/23/2018 10/22/2018 Active amlodipine 10 mg tablet RxNorm: 165763 Tablet(s) TAKE ONE TABLET BY MOUTH DAILY 06/16/2018 06/10/2019 Active Lipitor 10 mg tablet RxNorm: 298299 Tablet(s) TAKE ONE TABLET BY MOUTH DAILY 06/16/2018 06/10/2019 Active losartan 100 mg-hydrochlorothiazide 12.5 mg tablet RxNorm: 728545 1 Tablet(s) PO daily 06/16/2018 06/10/2019 Active phentermine 37.5 mg tablet RxNorm: 494756 1 Tablet(s) PO daily 06/16/2018 08/14/2018 Inactive amlodipine 10 mg tablet RxNorm: 183169 Tablet(s) TAKE ONE TABLET BY MOUTH DAILY 03/13/2018 06/15/2018 Inactive amlodipine 10 mg tablet RxNorm: 273964 Tablet(s) TAKE ONE TABLET BY MOUTH DAILY 08/21/2017 03/12/2018 Inactive Lipitor 10 mg tablet RxNorm: 078010 Tablet(s) TAKE ONE TABLET BY MOUTH DAILY 07/17/2017 06/15/2018 Inactive phentermine 37.5 mg tablet RxNorm: 527864 1 Tablet(s) PO daily 07/02/2017 08/30/2017 Inactive celecoxib 200 mg capsule RxNorm: 420380 1 Capsule(s) PO BID 07/31/2017 Inactive Lipitor 10 mg tablet RxNorm: 385677 TAKE ONE TABLET BY MOUTH DAILY 06/05/2017 07/16/2017 Inactive losartan 100 mg-hydrochlorothiazide 12.5 mg tablet RxNorm: 165682 1 Tablet(s) PO daily 06/04/2017 05/29/2018 Inactive hydrochlorothiazide 25 mg tablet RxNorm: 156053 1/2 Tablet(s) PO daily take with the losartan 100mg tablet 06/04/201707/03 Inactive losartan 100 mg tablet RxNorm: 383337 TAKE ONE TABLET BY MOUTH DAILY 04/16/2017 06/03/2017 Inactive phentermine 37.5 mg tablet RxNorm: 678353 1 Tablet(s) PO daily 04/03/2017 05/02/2017 Inactive Lipitor 10 mg tablet RxNorm: 454867 TAKE ONE TABLET BY MOUTH DAILY 03/04/2017 06/04/2017 Inactive phentermine 37.5 mg tablet RxNorm: 081863 1 Tablet(s) PO daily 02/28/2017 03/29/2017 Inactive losartan 100 mg tablet RxNorm: 661717 1 Tablet(s) daily TAKE ONE TABLET BY MOUTH DAILY 02/28/2017 04/15/2017 Inactive Lipitor 10 mg tablet RxNorm: 162195 TAKE ONE TABLET BY MOUTH DAILY 11/19/2016 02/16/2017 Inactive Lipitor 10 mg tablet RxNorm: 066423 Tablet(s) TAKE ONE TABLET BY MOUTH DAILY 10/29/2016 11/18/2016 Inactive amlodipine 10 mg tablet RxNorm: 258501 TAKE ONE TABLET BY MOUTH DAILY 08/14/2016 12/11/2016 Inactive amlodipine 10 mg tablet RxNorm: 504463 Tablet(s) TAKE ONE TABLET BY MOUTH DAILY 08/14/2016 08/13/2016 Inactive Lipitor 10 mg tablet RxNorm: 575189 TAKE ONE TABLET BY MOUTH DAILY 07/03/2016 10/28/2016 Inactive losartan 100 mg tablet RxNorm: 637707 TAKE ONE TABLET BY MOUTH DAILY 05/15/2016 10/30/2016 Inactive Lipitor 10 mg tablet RxNorm: 496542 TAKE ONE TABLET BY MOUTH DAILY 03/19/2016 06/16/2016 Inactive amlodipine 10 mg tablet RxNorm: 402938 TAKE ONE TABLET BY MOUTH DAILY 03/19/2016 06/15/2016 Inactive Belviq 10 mg tablet RxNorm: 0544687 1 Tablet(s) PO BID 201512/21/2015 Inactive Lipitor 10 mg tablet RxNorm: 283658 1 Tablet(s) PO daily 201502/16/2016 Inactive Celebrex 200 mg capsule RxNorm: 840701 1 Capsule(s) PO daily 10/28/2016 Inactive generic ok Celebrex 200 mg capsule RxNorm: 863076 1 Capsule(s) PO daily 09/04/2015 Inactive celecoxib 200 mg capsule RxNorm: 735951 1 Capsule(s) PO daily 07/25/2015 08/31/2015 Inactive Lipitor 10 mg tablet RxNorm: 609746 1 Tablet(s) PO daily 201409/16/2015 Inactive Lipitor 10 mg tablet RxNorm: 890237 1 Tablet(s) PO daily 201405/19/2015 Inactive losartan 100 mg tablet RxNorm: 426828 1 Tablet(s) PO daily 12/201405/15/2015 Inactive lisinopril 20 mg tablet RxNorm: 226664 1 Tablet(s) PO daily 12/201407/14/2015 Inactive losartan 50 mg tablet RxNorm: 279702 1 Tablet(s) PO daily 201405/16/2015 Inactive losartan 100 mg tablet RxNorm: 225905 1 Tablet(s) PO daily 12/201405/09/2016 Inactive this ia a new RX -replaces with 50mg losartan amlodipine 10 mg tablet RxNorm: 550889 1 Tablet(s) PO daily 09/201401/07/2016 Inactive losartan 50 mg tablet RxNorm: 301101 1 Tablet(s) PO daily 201405/15/2015 Inactive lisinopril 40 mg tablet RxNorm: 740208 1 Tablet(s) PO daily 09/201405/15/2015 Inactive amlodipine 10 mg tablet RxNorm: 666620 1 Tablet(s) PO daily 09/201405/12/2015 Inactive lisinopril 40 mg tablet RxNorm: 270428 1 Tablet(s) PO daily 09/201405/12/2015 Inactive losartan 50 mg tablet RxNorm: 330119 1 Tablet(s) PO daily 201405/12/2015 Inactive gabapentin 100 mg capsule RxNorm: 128768 1 Capsule(s) PO TID No Start Date [...] Result Date Cbc With Differential Ord2 WBC 4.24 K/ul [...] 29.9 pg 11/13/2016 Cbc With Differential Ord2 Latimer% 14.9 % 11/13/2016 Cbc With Differential Ord2 [...] 1.87 K/ul 11/13/2016 Cbc With Differential Ord2 Latimer ABS# 0.6 K/ul 11/13/2016 Cbc With Differential Ord2 Eos ABS# 0.1 K/ul 11/13/2016 Cbc With Differential Ord2 Baso ABS# 0.0 K/ul 11/13/2016 Comp Metabolic Pnd968 NA 140 mEq/L 11/13/2016 Comp Metabolic Edk574 K 4.2 mEq/L 11/13/2016 Comp Metabolic Qde168 CL 104 mEq/L 11/13/2016 Comp Metabolic Ogx966 CO2 27.0 mEq/L 11/13/2016 Comp Metabolic Haq657 ANION GAP 13 11/13/2016 Comp Metabolic Kbn301 GLUCOSE 102 mg/dL 11/13/2016 Comp Metabolic Jei236 Creat 1.1 mg/dL 11/13/2016 Comp Metabolic Rxa968 eGFR 74 ml/min/1.73m2 11/13/2016 Comp Metabolic Jqx364 BUN 21 mg/dL 11/13/2016 Comp Metabolic Okh186 B/C Ratio 19.8 Ratio 11/13/2016 Comp Metabolic Upz735 CALCIUM 9.4 mg/dL 11/13/2016 Comp Metabolic Pwb259 ALK PHOS 122 U/L 11/13/2016 Comp Metabolic Rmy264 AST(SGOT) 23 U/L 11/13/2016 Comp Metabolic Fcj969 ALT(SGPT) 29 U/L 11/13/2016 Comp Metabolic Laz006 BILI T 0.6 mg/dL 11/13/2016 Comp Metabolic Srp624 ALBUMIN 4.2 g/dL 11/13/2016 Comp Metabolic Npq985 TPRO 7.4 g/dL 11/13/2016 Comp Metabolic Rxq754 GLOB 3.2 g/dL 11/13/2016 Comp Metabolic Pus099 A/G Ratio 1.3 Ratio 11/13/2016 Comp Metabolic Uef789 Osmo 283 mOsmo 11/13/2016 Lipid Ord30 CHOL 166 mg/dL 11/13/2016 Lipid Ord30 HDL 45.0 mg/dl 11/13/2016 Lipid Ord30 TRIG 100 mg/dL 11/13/2016 Lipid Ord30 LDL 101 mg/dL 11/13/2016 Lipid Ord30 C/HDL 3.7 Ratio 11/13/2016 Total Psa Ord10 PSA 0.39 ng/mL 11/13/2016 Tsh Ord6 hTSH II 2.07 uIU/mL 11/13/2016 Comp Metabolic Qxj135 NA 136 mEq/L 05/16/2015 Comp Metabolic Nqz255 K 4.4 mEq/L 05/16/2015 Comp Metabolic Kxt538 CL 102 mEq/L 05/16/2015 Comp Metabolic Yat773 CO2 26.0 mEq/L 05/16/2015 Comp Metabolic Hzb256 ANION GAP 12 05/16/2015 Comp Metabolic Otv112 GLUCOSE 92 mg/dL 05/16/2015 Comp Metabolic Mvh928 Creat 1.4 mg/dL 05/16/2015 Comp Metabolic Luk636 eGFR 53 ml/min/1.73m2 05/16/2015 Comp Metabolic Ayq863 BUN 20 mg/dL 05/16/2015 Comp Metabolic Hlv852 B/C Ratio 14.1 Ratio 05/16/2015 Comp Metabolic Pkf250 CALCIUM 9.8 mg/dL 05/16/2015 Comp Metabolic Hbi895 ALK PHOS 102 U/L 05/16/2015 Comp Metabolic Wez904 AST(SGOT) 21 U/L 05/16/2015 Comp Metabolic Ccb110 ALT(SGPT) 25 U/L 05/16/2015 Comp Metabolic Cda173 BILI T 0.6 mg/dL 05/16/2015 Comp Metabolic Aco045 ALBUMIN 4.5 g/dL 05/16/2015 Comp Metabolic Zkh033 TPRO 7.7 g/dL 05/16/2015 Comp Metabolic Kzj114 GLOB 3.2 g/dL 05/16/2015 Comp Metabolic Xvv358 A/G Ratio 1.4 Ratio 05/16/2015 Comp Metabolic Uoh191 Osmo 274 mOsmo 05/16/2015 Cbc With Differential [...] Differential Ord2 RDW 14.7 % 05/16/2015 %Hba1C Tqk454 % HbA1c 48397-9 6.0 % 05/16/2015 %Hba1C Ogo756 Gluc Ave 126 mg/dL 05/16/2015 Tsh Ord6 [...] clear 10/23/2017 None Full Exam - General 1995 Ears/Nose/Throat oral cavity/pharynx/larynx Overall: oropharyngeal mucosa clear [...] NO PRSV 4 SAE 3 YRS+ CPT-4: 94031 06/04/2017 ADMIN INFLUENZA VIRUS VAC CPT-4: G0008 06/04/2017 PPPS, SUBSEQ VISIT CPT -4: G0439 10/31/2016 IMMUNIZATION ADMIN CPT -4: 37565 05/16/2015 IIV4 FLU VACC NO PRESERV ID Formatting Model/CDA Sections, Assigned to/Graciela West CT: [id number] CPT-4: 68657Mxctmcn 05/16/2015 Vital Signs Date Vital 09/23/2018 Blood Pressure 1: 128/70 Code : 8480-6 BMI: 39.6 Code : 94890-4 Heart Rate 1 : 67 bpm Height: 5'9" Weight: 268 lbs 2 oz 06/16/2018 Blood Pressure 1: 142/82 Code : 8480-6 Blood Pressure 1: 126/68 Code: 8480-6 BMI: 39.1 Code: 65963-8 Heart Rate 1: 51 bpm Height: 5'9" SpO2: 99% Weight: 265 lbs 10/23/2017 Blood Pressure 1: 128/70 Code : 8480-6 BMI: 39.3 Code : 13543-2 Heart Rate 1 : 72 bpm Height: 5'9" SpO2: 98% Weight: 266 lbs 07/02/2017 Blood Pressure 1: 136/70 Code : 8480-6 BMI: 38.4 Code : 83295-7 Heart Rate 1 : 86 bpm Height: 5'9" SpO2: 94% Weight: 260 lbs 06/27/2017 Blood Pressure 1: 152/76 Code : 8480-6 Blood Pressure 2: 144/74 Code: 8480-6 Heart Rate 1: 85 bpm SpO2: 97% 06/04/2017 Blood Pressure 1: 152/86 Code : 8480-6 Blood Pressure 1: 150/70 Code: 8480-6 BMI: 38.5 Code: 91213-4 Heart Rate 1: 75 bpm Height: 5'9" SpO2: 97% Weight: 261 lbs 04/03/2017 Blood Pressure 1: 138/64 Code : 8480-6 BMI: 38.8 Code : 06791-9 Heart Rate 1 : 62 bpm Height: 5'9" SpO2: 95% Weight: 263 lbs 02/28/2017 Blood Pressure 1: 128/82 Code : 8480-6 BMI: 39.4 Code : 49746-5 Heart Rate 1 : 70 bpm Height: 5'9" SpO2: 95% Weight: 267 lbs 10/31/2016 Blood Pressure 1: 134/76 Code : 8480-6 BMI: 39.9 Code : 63765-4 Heart Rate 1 : 70 bpm Height: 5'9" SpO2: 98% Waist Measure (cm): 102 cm Weight: 270 lbs 10/29/2016 Blood Pressure 1: 148/80 Code : 8480-6 Blood Pressure 1: 138/78 Code: 8480-6 BMI: 39.9 Code: 60991-3 Heart Rate 1: 68 bpm Height: 5'9" SpO2: 98% Weight: 270 lbs 12/22/2015 Blood Pressure 1: 138/82 Code : 8480-6 BMI: 39.9 Code : 44317-8 Heart Rate 1 : 78 bpm Height: 5'9" SpO2: 96% Weight: 270 lbs 11/08/2015 Blood Pressure 1: 144/70 Code : 8480-6 BMI: 40.3 Code : 79498-0 Heart Rate 1 : 70 bpm Height: 5'9" SpO2: 99% Weight: 273 lbs 09/01/2015 Blood Pressure 1: 128/88 Code : 8480-6 BMI: 39.3 Code : 94520-0 Heart Rate 1 : 80 bpm Height: 5'9" SpO2: 97% Weight: 266 lbs 07/25/2015 Blood Pressure 1: 150/78 Code : 8480-6 Blood Pressure 1: 138/70 Code: 8480-6 BMI: 39.0 Code: 52275-5 Heart Rate 1: 80 bpm Height: 5'9" SpO2: 97% Weight: 264 lbs 05/16/2015 Blood Pressure 1: 132/76 Code : 8480-6 BMI: 38.0 Code : 41217-3 Heart Rate 1 : 70 bpm Height: [...] data Encounters Encounter Performer Location Codes Date ([id number]) Miscellaneous no charge Diagnosis: Other obesity due to excess calories[ICD10: E66.09] Merced Recinos MD, [facility] CPT-4: 67873 09/23/2018 [id number] EST. PATIENT, LEVEL IV Diagnosis: Essential (primary) hypertension[ICD10: I10] Diagnosis: Other obesity due to excess calories[ICD10: E66.09] [facility] CPT-4: 45393 06/16/2018 ([id number]) 14329 EST. PATIENT, LEVEL III Diagnosis: Essential (primary) hypertension[ICD10: I10] Diagnosis: Other obesity due to excess calories[ICD10: E66.09] [facility] CPT-4: 45858 10/23/2017 ([id number]) 09873 EST. PATIENT, LEVEL III Diagnosis: Essential (primary) hypertension[ICD10: I10] Diagnosis: Other obesity due to excess calories[ICD10: E66.09] Diagnosis: Obstructive sleep apnea (adult) (pediatric)[ICD10: G47.33] [facility] CPT-4: 23368 07/02/2017 ([id number]) Miscellaneous no charge Diagnosis: Essential (primary) hypertension[ICD10: I10] [facility] CPT-4: 84910 06/27/2017 ([id number]) 53319 EST. PATIENT, LEVEL IV Diagnosis: Essential (primary) hypertension[ICD10: I10] Diagnosis: Obstructive sleep apnea (adult) (pediatric)[ICD10: G47.33] Diagnosis: Encounter for immunization[ICD10: Z23] [facility] CPT-4: 34030 06/04/2017 ([id number]) Miscellaneous no charge Diagnosis: Body mass index (BMI) 38.0-38.9, adult[ICD10: Z68.38] [facility] CPT-4: 58652 04/03/2017 ([id number]) 37341 EST. PATIENT, LEVEL IV Diagnosis: Sleep related hypoventilation in conditions classified elsewhere[ ICD10: G47.36] Diagnosis: Obstructive sleep apnea (adult) (pediatric)[ICD10: G47.33] Diagnosis: Essential (primary) hypertension[ICD10: I10] Diagnosis: Other obesity due to excess calories[ICD10: E66.09] [facility] CPT-4: 01565 02/28/2017 ([id number]) 14777 EST. PATIENT, LEVEL IV Diagnosis: Obstructive sleep apnea (adult) (pediatric)[ICD10: G47.33] Diagnosis: Sleep related hypoventilation in conditions classified elsewhere[ ICD10: G47.36] Diagnosis: Periodic limb movement disorder[ICD10: G47.61] Diagnosis: Essential (primary) hypertension[ICD10: I10] Diagnosis: Mixed hyperlipidemia[ICD10: E78.2] [facility] CPT-4: 13730 10/29/2016 [id number]) 41765 EST. PATIENT, LEVEL III Diagnosis: Hypertensive chronic kidney disease with stage 1 through stage 4 chronic kidney disease, or unspecified chronic kidney disease[ICD10: I12.9] Diagnosis: Body mass index (BMI) 40.0-44.9, adult[ICD10: Z68.41] [facility] CPT-4: 76468 12/22/2015 [id number] 28295 EST. PATIENT, LEVEL IV Diagnosis: Hypertensive chronic kidney disease with stage 1 through stage 4 chronic kidney disease, or unspecified chronic kidney disease[ICD10: I12.9] Diagnosis: Low back pain[ICD10: M54.5] Diagnosis: Body mass index (BMI) 40.0-44.9, adult[ICD10: Z68.41] [facility] Douglas MD CPT-4: 36789 11/08/2015 ([id number] 01692 EST. PATIENT, LEVEL III Diagnosis: Hypertensive chronic kidney disease with stage 1 through stage 4 chronic kidney disease, or unspecified chronic kidney disease[ICD10: I12.9] Diagnosis: Bilateral primary osteoarthritis of knee[ICD10: M17.0] Diagnosis: Low back pain[ICD10: M54.5] SAHRA Douglas MD CPT- 4: 53792 09/01/2015 ([id number] EST. PATIENT, LEVEL III Diagnosis: Hypertensive chronic kidney disease with stage 1 through stage 4 chronic kidney disease, or unspecified chronic kidney disease[ICD10: I12.9] Diagnosis: Low back pain[ICD10: M54.5] Merced Recinos MD, [facility] CPT- 4: 02854 07/25/2015 ([id number]) PREV VISIT NEW AGE 40-64 Diagnosis: Encounter for general adult medical examination without abnormal findings[ICD10: Z00.00] Merced Recinos MD, [facility] CPT-4: 17816 05/16/2015 Plan of Care Planned Activity Notes [...] weight check. 06/16/2018 Appointment: Ban Mtz WPtel: [phone] [facility] (15 min) Moderate 06/16/2018 Patient Education: Patient Medication Summary Completed 06/16/2018 Appointment: Nurse Visit 06/11/2018 Appointment: Ban Mtz WPtel: [phone] [facility] MCR - Annual Wellness Visit 11/08/2017 Visit Plan: [...] weight check. 10/23/2017 Appointment: Merced Recinos WPtel: [phone] [facility] (15 min) Moderate 10/23/2017 Patient Education: Patient [...] working well. 07/02/2017 Appointment: Merced Recinos WPtel: [facility] (15 min) Moderate 07/02/2017 Patient Education: Patient [...] feeling rested. 06/04/2017 Appointment: Merced Recinos WPtel: [phone] [facility] (15 min) Moderate 06/04/2017 Patient Education: Patient Medication Summary Completed 06/04/2017 Patient Education: Obesity Completed 06/04/2017 Appointment: Merced Recinos WPtel: [phone] [facility] (15 min) Moderate 05/01/2017 Appointment: Nurse Visit [...] at home. 02/28/2017 [phone] [place] (15 min) Moderate 02/28/2017 Patient Education: Patient [...] care surrogate. 10/31/2016 Appointment: Ban Mtz WPtel: [facility] [place] [address] - Annual Wellness Visit 10/31/2016 Patient Education: [...] to medications. 10/29/2016 Appointment: Merced Recinos WPtel: [facility] (15 min) Moderate 10/29/2016 Patient Education: Patient [...] two bid 12/22/2015 Appointment: Merced Recinos WPtel: [phone] [facility] (15 min) Moderate 12/22/2015 Patient Education: Patient [...] Obesity Completed 11/08/2015 Appointment: Merced Recinos WPtel: [facility] (15 min) Moderate 09/08/2015 Visit Plan: Hypertension [...] generic celebrex 09/01/2015 Appointment: Merced Recinos WPtel: [facility] [place] (15 min) Moderate 09/01/2015 Patient Education: Patient Medication Summary Completed 09/01/2015 Appointment: Merced Recinos WPtel: [facility] (15 min) Moderate 08/29/2015 Visit Plan: Hypertension - well controlled - continue with current medications, continue with no added salt diet. Pt has been encouraged to exercise daily. The pt has been advised to call the office if there are any acute concerns about change in blood pressure readings at home. Low back pain with history of back surgery in [place] - pt had fusion of lumbar spine - will order an MRI of lumbar and sacral spine - sample of viagra given in clinic today as pt feels that the cialis has not helped lately. 07/25/2015 [place] [place] [phone] (15 min) Moderate 07/25/2015 Patient Education: Patient [...] will RTC in 6 weeks. 05/16/2015 Appointment: [place] [facility] [place] ([place] New Patient 05/16/2015 Patient Education: [...] pain with history of back surgery in [place] - pt had fusion of lumbar spine [...]
[2018-12-12 06:55] VITALS: BP 125/82
--- OUTSIDE RECORDS SUMMARY | 2018-12-12 06:55 | XMS REPORT | CCD ---
Author Author [facility] Organization [facility] Address [address] [place] [address] Phone Care Team Providers Care Pediatric Social Worker Name Role Phone PP Unavailable CCM Unavailable Summary Purpose Interface Exchange Insurance Providers Payer name Policy type / Coverage type Covered alliance party ID Effective Begin Date Effective End Date WPS Medicare Part B Medicare Part B [id number] Unknown AARP Medicare Part B [id number] Unknown Family history Mother Diagnosis Age At [...] Codes Condition Status Onset Date Resolved Date Essential (primary) hypertension ICD-9: 401.1 ICD-10: I10 Active 10/29/2016 Unknown Other obesity due to excess calories ICD-9: 278.00 ICD-10: E66.09 Active 02/28/2017 Unknown Obstructive sleep apnea (adult) (pediatric) ICD-9: [...] Problems Condition Codes Effective Dates Condition Status Essential (primary) hypertension ICD-9: 401.1 ICD-10: I10 10/29/2016 Active Other obesity due to excess calories ICD-9: 278.00 ICD-10: E66.09 02/28/2017 Active Obstructive sleep apnea (adult) (pediatric) ICD-9: [...] Start Date Stop Date Status Fill Instructions amlodipine 10 mg tablet RxNorm: 128659 Tablet(s) TAKE ONE TABLET BY MOUTH DAILY 06/16/2018 06/10/2019 Active phentermine 37.5 mg tablet RxNorm: 533500 1 Tablet(s) PO daily 06/16/2018 08/14/2018 Active Lipitor 10 mg tablet RxNorm: 954413 Tablet(s) TAKE ONE TABLET BY MOUTH DAILY 06/16/2018 06/10/2019 Active losartan 100 mg-hydrochlorothiazide 12.5 mg tablet RxNorm: 106942 1 Tablet(s) PO daily 06/16/2018 06/10/2019 Active amlodipine 10 mg tablet RxNorm: 516723 Tablet(s) TAKE ONE TABLET BY MOUTH DAILY 03/13/2018 06/15/2018 Inactive amlodipine 10 mg tablet RxNorm: 817205 Tablet(s) TAKE ONE TABLET BY MOUTH DAILY 08/21/2017 03/12/2018 Inactive Lipitor 10 mg tablet RxNorm: 870611 Tablet(s) TAKE ONE TABLET BY MOUTH DAILY 07/17/2017 06/15/2018 Inactive phentermine 37.5 mg tablet RxNorm: 676781 1 Tablet(s) PO daily 07/02/2017 08/30/2017 Inactive celecoxib 200 mg capsule RxNorm: 797426 1 Capsule(s) PO BID 07/31/2017 Inactive Lipitor 10 mg tablet RxNorm: 374159 TAKE ONE TABLET BY MOUTH DAILY 06/05/2017 07/16/2017 Inactive losartan 100 mg-hydrochlorothiazide 12.5 mg tablet RxNorm: 367770 1 Tablet(s) PO daily 06/04/2017 05/29/2018 Inactive hydrochlorothiazide 25 mg tablet RxNorm: 385075 1/2 Tablet(s) PO daily take with the losartan 100mg tablet 06/04/201707/03 Inactive losartan 100 mg tablet RxNorm: 481426 TAKE ONE TABLET BY MOUTH DAILY 04/16/2017 06/03/2017 Inactive phentermine 37.5 mg tablet RxNorm: 527019 1 Tablet(s) PO daily 04/03/2017 05/02/2017 Inactive Lipitor 10 mg tablet RxNorm: 030123 TAKE ONE TABLET BY MOUTH DAILY 03/04/2017 06/04/2017 Inactive phentermine 37.5 mg tablet RxNorm: 179456 1 Tablet(s) PO daily 02/28/2017 03/29/2017 Inactive losartan 100 mg tablet RxNorm: 042704 1 Tablet(s) daily TAKE ONE TABLET BY MOUTH DAILY 02/28/2017 04/15/2017 Inactive Lipitor 10 mg tablet RxNorm: 312386 TAKE ONE TABLET BY MOUTH DAILY 11/19/2016 02/16/2017 Inactive Lipitor 10 mg tablet RxNorm: 900923 Tablet(s) TAKE ONE TABLET BY MOUTH DAILY 10/29/2016 11/18/2016 Inactive amlodipine 10 mg tablet RxNorm: 039567 TAKE ONE TABLET BY MOUTH DAILY 08/14/2016 12/11/2016 Inactive amlodipine 10 mg tablet RxNorm: 633495 Tablet(s) TAKE ONE TABLET BY MOUTH DAILY 08/14/2016 08/13/2016 Inactive Lipitor 10 mg tablet RxNorm: 597230 TAKE ONE TABLET BY MOUTH DAILY 07/03/2016 10/28/2016 Inactive losartan 100 mg tablet RxNorm: 411931 TAKE ONE TABLET BY MOUTH DAILY 05/15/2016 10/30/2016 Inactive Lipitor 10 mg tablet RxNorm: 193042 TAKE ONE TABLET BY MOUTH DAILY 03/19/2016 06/16/2016 Inactive amlodipine 10 mg tablet RxNorm: 011388 TAKE ONE TABLET BY MOUTH DAILY 03/19/2016 06/15/2016 Inactive Belviq 10 mg tablet RxNorm: 4402980 1 Tablet(s) PO BID 201512/21/2015 Inactive Lipitor 10 mg tablet RxNorm: 146344 1 Tablet(s) PO daily 201502/16/2016 Inactive Celebrex 200 mg capsule RxNorm: 448832 1 Capsule(s) PO daily 10/28/2016 Inactive generic ok Celebrex 200 mg capsule RxNorm: 887455 1 Capsule(s) PO daily 09/04/2015 Inactive celecoxib 200 mg capsule RxNorm: 875697 1 Capsule(s) PO daily 07/25/2015 08/31/2015 Inactive Lipitor 10 mg tablet RxNorm: 212991 1 Tablet(s) PO daily 201409/16/2015 Inactive Lipitor 10 mg tablet RxNorm: 584614 1 Tablet(s) PO daily 201405/19/2015 Inactive losartan 100 mg tablet RxNorm: 785453 1 Tablet(s) PO daily 12/201405/15/2015 Inactive lisinopril 20 mg tablet RxNorm: 863271 1 Tablet(s) PO daily 12/201407/14/2015 Inactive losartan 50 mg tablet RxNorm: 794678 1 Tablet(s) PO daily 201405/16/2015 Inactive losartan 100 mg tablet RxNorm: 416360 1 Tablet(s) PO daily 12/201405/09/2016 Inactive this ia a new RX -replaces with 50mg losartan amlodipine 10 mg tablet RxNorm: 710680 1 Tablet(s) PO daily 09/201401/07/2016 Inactive losartan 50 mg tablet RxNorm: 374759 1 Tablet(s) PO daily 201405/15/2015 Inactive lisinopril 40 mg tablet RxNorm: 529124 1 Tablet(s) PO daily 09/201405/15/2015 Inactive amlodipine 10 mg tablet RxNorm: 311916 1 Tablet(s) PO daily 09/201405/12/2015 Inactive lisinopril 40 mg tablet RxNorm: 132445 1 Tablet(s) PO daily 09/201405/12/2015 Inactive losartan 50 mg tablet RxNorm: 487821 1 Tablet(s) PO daily 201405/12/2015 Inactive gabapentin 100 mg capsule RxNorm: 854558 1 Capsule(s) PO TID No Start Date 10/28/2016 Inactive Medication Administered No Medication Administered data Immunizations Vaccine Codes Date Status Influenza CVX: 141 06/11/2018 completed Influenza CVX: 141 06/04/2017 completed Influenza CVX: 141 05/16/2015 completed Assessments Condition Codes Effective Dates Essential (primary) hypertension ICD-10: I10 ICD-9: 401.1 06/16/2018 Other obesity due to excess calories ICD-10: E66.09 ICD-9: 278.00 06/16/2018 Obstructive sleep apnea (adult) (pediatric) ICD-10: [...] 15.1 g/dl 11/13/2016 Cbc With Differential Ord2 Neut% 38.9 % 11/13/2016 Cbc With Differential Ord2 HCT 45.9 % 11/13/2016 Cbc With Differential Ord2 Lymph% 44.1 % 11/13/2016 Cbc With Differential Ord2 MCV 90.9 fl 11/13/2016 Cbc With Differential Ord2 MCH 29.9 pg 11/13/2016 Cbc With Differential Ord2 [place]% 14.9 % 11/13/2016 Cbc With Differential Ord2 Eos% 1.9 % 11/13/2016 Cbc With Differential Ord2 MCHC 32.9 pg 11/13/2016 Cbc With Differential Ord2 PLT 202 K/ul 11/13/2016 Cbc With Differential Ord2 Baso% 0.2 % 11/13/2016 Cbc With Differential Ord2 Neut ABS# 1.65 K/ul 11/13/2016 Cbc With Differential Ord2 RDW 14.6 % 11/13/2016 Cbc With Differential Ord2 Lymph ABS# 1.87 K/ul 11/13/2016 Cbc With Differential Ord2 [place] ABS# 0.6 K/ul 11/13/2016 Cbc With Differential Ord2 Eos ABS# 0.1 K/ul 11/13/2016 Cbc With Differential Ord2 Baso ABS# 0.0 K/ul 11/13/2016 Comp Metabolic Bmc374 NA 140 mEq/L 11/13/2016 Comp Metabolic Huz234 K 4.2 mEq/L 11/13/2016 Comp Metabolic Uom773 CL 104 mEq/L 11/13/2016 Comp Metabolic Wwe711 CO2 27.0 mEq/L 11/13/2016 Comp Metabolic Vml310 ANION GAP 13 11/13/2016 Comp Metabolic Ahw572 GLUCOSE 102 mg/dL 11/13/2016 Comp Metabolic Bko511 Creat 1.1 mg/dL 11/13/2016 Comp Metabolic Msb431 eGFR 74 ml/min/1.73m2 11/13/2016 Comp Metabolic Pww414 BUN 21 mg/dL 11/13/2016 Comp Metabolic Jlk059 B/C Ratio 19.8 Ratio 11/13/2016 Comp Metabolic Ggw415 CALCIUM 9.4 mg/dL 11/13/2016 Comp Metabolic Pzp962 ALK PHOS 122 U/L 11/13/2016 Comp Metabolic Cvf035 AST(SGOT) 23 U/L 11/13/2016 Comp Metabolic Gph559 ALT(SGPT) 29 U/L 11/13/2016 Comp Metabolic Vwr803 BILI T 0.6 mg/dL 11/13/2016 Comp Metabolic Avj358 ALBUMIN 4.2 g/dL 11/13/2016 Comp Metabolic Rvm473 TPRO 7.4 g/dL 11/13/2016 Comp Metabolic Ptn809 GLOB 3.2 g/dL 11/13/2016 Comp Metabolic Zjc922 A/G Ratio 1.3 Ratio 11/13/2016 Comp Metabolic Dmq496 Osmo 283 mOsmo 11/13/2016 Lipid Ord30 CHOL 166 mg/dL 11/13/2016 Lipid Ord30 HDL 45.0 mg/dl 11/13/2016 Lipid Ord30 TRIG 100 mg/dL 11/13/2016 Lipid Ord30 LDL 101 mg/dL 11/13/2016 Lipid Ord30 C/HDL 3.7 Ratio 11/13/2016 Total Psa Ord10 PSA 0.39 ng/mL 11/13/2016 Tsh Ord6 hTSH II 2.07 uIU/mL 11/13/2016 Comp Metabolic Lpv117 NA 136 mEq/L 05/16/2015 Comp Metabolic Qnd926 K 4.4 mEq/L 05/16/2015 Comp Metabolic Qfb707 CL 102 mEq/L 05/16/2015 Comp Metabolic Rev590 CO2 26.0 mEq/L 05/16/2015 Comp Metabolic Zkx795 ANION GAP 12 05/16/2015 Comp Metabolic Dkc965 GLUCOSE 92 mg/dL 05/16/2015 Comp Metabolic Ldn226 Creat 1.4 mg/dL 05/16/2015 Comp Metabolic Unj025 eGFR 53 ml/min/1.73m2 05/16/2015 Comp Metabolic Ain131 BUN 20 mg/dL 05/16/2015 Comp Metabolic Cxq829 B/C Ratio 14.1 Ratio 05/16/2015 Comp Metabolic Tvk960 CALCIUM 9.8 mg/dL 05/16/2015 Comp Metabolic Iav907 ALK PHOS 102 U/L 05/16/2015 Comp Metabolic Rgi763 AST(SGOT) 21 U/L 05/16/2015 Comp Metabolic Kzt173 ALT(SGPT) 25 U/L 05/16/2015 Comp Metabolic Xqj654 BILI T 0.6 mg/dL 05/16/2015 Comp Metabolic Wnn969 ALBUMIN 4.5 g/dL 05/16/2015 Comp Metabolic Iro479 TPRO 7.7 g/dL 05/16/2015 Comp Metabolic Glo823 GLOB 3.2 g/dL 05/16/2015 Comp Metabolic Nah638 A/G Ratio 1.4 Ratio 05/16/2015 Comp Metabolic Tul376 Osmo 274 mOsmo 05/16/2015 Cbc With Differential [...] Differential Ord2 RDW 14.7 % 05/16/2015 %Hba1C Smq567 % HbA1c 07753-1 6.0 % 05/16/2015 %Hba1C Bzv276 Gluc Ave 126 mg/dL 05/16/2015 Tsh Ord6 [...] NO PRSV 4 SAE 3 YRS+ CPT-4: 57118 06/04/2017 ADMIN INFLUENZA VIRUS VAC CPT-4: G0008 06/04/2017 PPPS, SUBSEQ VISIT CPT -4: G0439 10/31/2016 IMMUNIZATION ADMIN CPT -4: 84625 05/16/2015 IIV4 FLU VACC NO PRESERV ID Formatting Model/CDA Sections, Assigned to/Graciela West CT: [id number] CPT-4: 44751Zkbuqez 05/16/2015 Vital Signs Date Vital 06/16/2018 Blood Pressure 1: 142/82 Code : 8480-6 Blood Pressure 1: 126/68 Code: 8480-6 BMI: 39.1 Code: 52121-9 Heart Rate 1: 51 bpm Height: 5'9" SpO2: 99% Weight: 265 lbs 10/23/2017 Blood Pressure 1: 128/70 Code : 8480-6 BMI: 39.3 Code : 12332-1 Heart Rate 1 : 72 bpm Height: 5'9" SpO2: 98% Weight: 266 lbs 07/02/2017 Blood Pressure 1: 136/70 Code : 8480-6 BMI: 38.4 Code : 73896-2 Heart Rate 1 : 86 bpm Height: 5'9" SpO2: 94% Weight: 260 lbs 06/27/2017 Blood Pressure 1: 152/76 Code : 8480-6 Blood Pressure 2: 144/74 Code: 8480-6 Heart Rate 1: 85 bpm SpO2: 97% 06/04/2017 Blood Pressure 1: 152/86 Code : 8480-6 Blood Pressure 1: 150/70 Code: 8480-6 BMI: 38.5 Code: 45134-5 Heart Rate 1: 75 bpm Height: 5'9" SpO2: 97% Weight: 261 lbs 04/03/2017 Blood Pressure 1: 138/64 Code : 8480-6 BMI: 38.8 Code : 10096-2 Heart Rate 1 : 62 bpm Height: 5'9" SpO2: 95% Weight: 263 lbs 02/28/2017 Blood Pressure 1: 128/82 Code : 8480-6 BMI: 39.4 Code : 80768-4 Heart Rate 1 : 70 bpm Height: 5'9" SpO2: 95% Weight: 267 lbs 10/31/2016 Blood Pressure 1: 134/76 Code : 8480-6 BMI: 39.9 Code : 26116-1 Heart Rate 1 : 70 bpm Height: 5'9" SpO2: 98% Waist Measure (cm): 102 cm Weight: 270 lbs 10/29/2016 Blood Pressure 1: 148/80 Code : 8480-6 Blood Pressure 1: 138/78 Code: 8480-6 BMI: 39.9 Code: 66029-9 Heart Rate 1: 68 bpm Height: 5'9" SpO2: 98% Weight: 270 lbs 12/22/2015 Blood Pressure 1: 138/82 Code : 8480-6 BMI: 39.9 Code : 51698-0 Heart Rate 1 : 78 bpm Height: 5'9" SpO2: 96% Weight: 270 lbs 11/08/2015 Blood Pressure 1: 144/70 Code : 8480-6 BMI: 40.3 Code : 91240-8 Heart Rate 1 : 70 bpm Height: 5'9" SpO2: 99% Weight: 273 lbs 09/01/2015 Blood Pressure 1: 128/88 Code : 8480-6 BMI: 39.3 Code : 25287-0 Heart Rate 1 : 80 bpm Height: 5'9" SpO2: 97% Weight: 266 lbs 07/25/2015 Blood Pressure 1: 138/70 Code : 8480-6 Blood Pressure 1: 150/78 Code: 8480-6 BMI: 39.0 Code: 11782-4 Heart Rate 1: 80 bpm Height: 5'9" SpO2: 97% Weight: 264 lbs 05/16/2015 Blood Pressure 1: 132/76 Code : 8480-6 BMI: 38.0 Code : 94409-5 Heart Rate 1 : 70 bpm Height: [...] data Encounters Encounter Performer Location Codes Date EST. PATIENT, LEVEL IV Diagnosis: Essential (primary) hypertension[ICD10: I10] Diagnosis: Other obesity due to excess calories[ICD10: E66.09] [facility] CPT-4: 03643 06/16/2018 ([id number]) [id number] EST. PATIENT, LEVEL III Diagnosis: Essential (primary) hypertension[ICD10: I10] Diagnosis: Other obesity due to excess calories[ICD10: E66.09] [facility] CPT-4: 25108 10/23/2017 [id number] EST. PATIENT, LEVEL III Diagnosis: Essential (primary) hypertension[ICD10: I10] Diagnosis: Other obesity due to excess calories[ICD10: E66.09] Diagnosis: Obstructive sleep apnea (adult) (pediatric)[ICD10: G47.33] [facility] CPT-4: 57547 07/02/2017 ([id number]) Miscellaneous no charge Diagnosis: Essential (primary) hypertension[ICD10: I10] [facility] CPT-4: 59534 06/27/2017 ([id number]) 14052 EST. PATIENT, LEVEL IV Diagnosis: Essential (primary) hypertension[ICD10: I10] Diagnosis: Obstructive sleep apnea (adult) (pediatric)[ICD10: G47.33] Diagnosis: Encounter for immunization[ICD10: Z23] [facility] CPT-4: 84345 06/04/2017 ([id number]) Miscellaneous no charge Diagnosis: Body mass index (BMI) 38.0-38.9, adult[ICD10: Z68.38] [facility], [facility] CPT-4: 64713 04/03/2017 ([id number] EST. PATIENT, LEVEL IV Diagnosis: Sleep related hypoventilation in conditions classified elsewhere[ ICD10: G47.36] Diagnosis: Obstructive sleep apnea (adult) (pediatric)[ICD10: G47.33] Diagnosis: Essential (primary) hypertension[ICD10: I10] Diagnosis: Other obesity due to excess calories[ICD10: E66.09] [facility], [facility] CPT-4: 30441 02/28/2017 ([id number]) 95636 EST. PATIENT, LEVEL IV Diagnosis: Obstructive sleep apnea (adult) (pediatric)[ICD10: G47.33] Diagnosis: Sleep related hypoventilation in conditions classified elsewhere[ ICD10: G47.36] Diagnosis: Periodic limb movement disorder[ICD10: G47.61] Diagnosis: Essential (primary) hypertension[ICD10: I10] Diagnosis: Mixed hyperlipidemia[ICD10: E78.2] [facility], [facility] CPT-4: 28759 10/29/2016 [id number] [id number] EST. PATIENT, LEVEL III Diagnosis: Hypertensive chronic kidney disease with stage 1 through stage 4 chronic kidney disease, or unspecified chronic kidney disease[ICD10: I12.9] Diagnosis: Body mass index (BMI) 40.0-44.9, adult[ICD10: Z68.41] [facility], [facility] CPT-4: 89206 12/22/2015 ([id number]) 73589 EST. PATIENT, LEVEL IV Diagnosis: Hypertensive chronic kidney disease with stage 1 through stage 4 chronic kidney disease, or unspecified chronic kidney disease[ICD10: I12.9] Diagnosis: Low back pain[ICD10: M54.5] Diagnosis: Body mass index (BMI) 40.0-44.9, adult[ICD10: Z68.41] [facility], [facility] CPT-4: 18345 11/08/2015 ([id number]) 90213 EST. PATIENT, LEVEL III Diagnosis: Hypertensive chronic kidney disease with stage 1 through stage 4 chronic kidney disease, or unspecified chronic kidney disease[ICD10: I12.9] Diagnosis: Bilateral primary osteoarthritis of knee[ICD10: M17.0] Diagnosis: Low back pain[ICD10: M54.5] [facility] CPT- 4: 79704 09/01/2015 ([id number]) 74005 EST. PATIENT, LEVEL III Diagnosis: Hypertensive chronic kidney disease with stage 1 through stage 4 chronic kidney disease, or unspecified chronic kidney disease[ICD10: I12.9] Diagnosis: Low back pain[ICD10: M54.5] [facility] CPT- 4: 13295 07/25/2015 ([id number]) PREV VISIT NEW AGE 40-64 Diagnosis: Encounter for general adult medical examination without abnormal findings[ICD10: Z00.00] [facility] CPT-4: 19506 05/16/2015 Plan of Care Planned Activity Notes Codes Status Date Visit Plan: Hypertension - well controlled - [...] weight check. 06/16/2018 Appointment: [facility]: [address] [place], [place] [id number] (15 min) Moderate 06/16/2018 Patient Education: Patient Medication Summary Completed 06/16/2018 Appointment: Nurse Visit 06/11/2018 Appointment: [facility]: [address] [place], [place] [phone] [facility] - Annual Wellness Visit 11/08/2017 Visit Plan: [...] check. 10/23/2017 [facility] [address] [facility] ([facility] min[facility] Moderate 10/23/2017 Patient Education: Patient [...] well. 07/02/2017 Appointment: [facility]: [phone] [facility] (15 min) Moderate 07/02/2017 Patient Education: Patient [...] rested. 06/04/2017 App[facility] [address] [facility] [place] (15 min) Moderate 06/04/2017 Patient Education: Patient Medication Summary Completed 06/04/2017 Patient Education: Obesity Completed 06/04/2017 [facility] [address] [facility] [place] (15 min) Moderate 05/01/2017 Appointment: Nurse Visit [...] at home. 02/28/2017 [facility] [address] [facility] (15 min) Moderate 02/28/2017 Patient Education: Patient [...] care surrogate. 10/31/2016 Appointment: [facility]: [phone] [facility] [facility] - Annual Wellness Visit 10/31/2016 Patient Education: [...] to medications. 10/29/2016 Appointment: [facility]: [address] [facility] (15 min) Moderate 10/29/2016 Patient Education: Patient [...] two bid 12/22/2015 App[facility] [phone] [facility] ([facility] min) Moderate 12/22/2015 Patient Education: Patient [...] Obesity Completed 11/08/2015 Appointment: [facility]: [phone] [facility] (15 min) Moderate 09/08/2015 Visit Plan: Hypertension [...] generic celebrex 09/01/2015 Appointment: Merced Recinos WPtel: [facility] (15 min) Moderate 09/01/2015 Patient Education: Patient Medication Summary Completed 09/01/2015 Appointment: Merced Recinos WPtel: [facility]7 [facility] (15 min) Moderate 08/29/2015 Visit Plan: Hypertension - well controlled - continue with current medications, continue with no added salt diet. Pt has been encouraged to exercise daily. The pt has been advised to call the office if there are any acute concerns about change in blood pressure readings at home. Low back pain with history of back surgery in [place] - pt had fusion of lumbar spine - will order an MRI of lumbar and sacral spine - sample of viagra given in clinic today as pt feels that the cialis has not helped lately. 07/25/2015 Appointment: [facility]inos WPtel: [phone] [facility] (15 min) Moderate 07/25/2015 Patient Education: Patient [...] 6 weeks. 05/16/2015 Appointment: [facility] WPtel: [address] [place], [place] [address] [place] (S) New Patient 05/16/2015 Patient Education: [...] pain with history of back surgery in [place] - pt had fusion of lumbar spine [...]
--- OUTSIDE RECORDS SUMMARY | 2018-12-12 06:57 | XMS REPORT | CCD ---
Author Author [facility] Organization [facility] Address [address] [place] [address] Phone Care Team Providers Care Forestry Scientist Name Role Phone PP Unavailable CCM Unavailable Summary Purpose Interface Exchange Insurance Providers Payer name Policy type / Coverage type Covered democrat ID Effective Begin Date Effective End Date WPS Medicare Part B Medicare Part B [id number] Unknown AARP Medicare Part B [id number] Unknown Family history Mother Diagnosis Age At [...] Fill Instructions amlodipine 10 mg tablet RxNorm: 635071 Tablet(s) TAKE ONE TABLET BY MOUTH DAILY 06/16/2018 06/10/2019 Active phentermine 37.5 mg tablet RxNorm: 375413 1 Tablet(s) PO daily 06/16/2018 08/14/2018 Active Lipitor 10 mg tablet RxNorm: 469582 Tablet(s) TAKE ONE TABLET BY MOUTH DAILY 06/16/2018 06/10/2019 Active losartan 100 mg-hydrochlorothiazide 12.5 mg tablet RxNorm: 757909 1 Tablet(s) PO daily 06/16/2018 06/10/2019 Active amlodipine 10 mg tablet RxNorm: 482343 Tablet(s) TAKE ONE TABLET BY MOUTH DAILY 03/13/2018 06/15/2018 Inactive amlodipine 10 mg tablet RxNorm: 125502 Tablet(s) TAKE ONE TABLET BY MOUTH DAILY 08/21/2017 03/12/2018 Inactive Lipitor 10 mg tablet RxNorm: 903382 Tablet(s) TAKE ONE TABLET BY MOUTH DAILY 07/17/2017 06/15/2018 Inactive phentermine 37.5 mg tablet RxNorm: 717167 1 Tablet(s) PO daily 07/02/2017 08/30/2017 Inactive celecoxib 200 mg capsule RxNorm: 611335 1 Capsule(s) PO BID 07/31/2017 Inactive Lipitor 10 mg tablet RxNorm: 625444 TAKE ONE TABLET BY MOUTH DAILY 06/05/2017 07/16/2017 Inactive losartan 100 mg-hydrochlorothiazide 12.5 mg tablet RxNorm: 194325 1 Tablet(s) PO daily 06/04/2017 05/29/2018 Inactive hydrochlorothiazide 25 mg tablet RxNorm: 370330 1/2 Tablet(s) PO daily take with the losartan 100mg tablet 06/04/201707/03 Inactive losartan 100 mg tablet RxNorm: 272574 TAKE ONE TABLET BY MOUTH DAILY 04/16/2017 06/03/2017 Inactive phentermine 37.5 mg tablet RxNorm: 069580 1 Tablet(s) PO daily 04/03/2017 05/02/2017 Inactive Lipitor 10 mg tablet RxNorm: 084210 TAKE ONE TABLET BY MOUTH DAILY 03/04/2017 06/04/2017 Inactive phentermine 37.5 mg tablet RxNorm: 158569 1 Tablet(s) PO daily 02/28/2017 03/29/2017 Inactive losartan 100 mg tablet RxNorm: 929530 1 Tablet(s) daily TAKE ONE TABLET BY MOUTH DAILY 02/28/2017 04/15/2017 Inactive Lipitor 10 mg tablet RxNorm: 154150 TAKE ONE TABLET BY MOUTH DAILY 11/19/2016 02/16/2017 Inactive Lipitor 10 mg tablet RxNorm: 419217 Tablet(s) TAKE ONE TABLET BY MOUTH DAILY 10/29/2016 11/18/2016 Inactive amlodipine 10 mg tablet RxNorm: 610037 TAKE ONE TABLET BY MOUTH DAILY 08/14/2016 12/11/2016 Inactive amlodipine 10 mg tablet RxNorm: 414179 Tablet(s) TAKE ONE TABLET BY MOUTH DAILY 08/14/2016 08/13/2016 Inactive Lipitor 10 mg tablet RxNorm: 543394 TAKE ONE TABLET BY MOUTH DAILY 07/03/2016 10/28/2016 Inactive losartan 100 mg tablet RxNorm: 532564 TAKE ONE TABLET BY MOUTH DAILY 05/15/2016 10/30/2016 Inactive Lipitor 10 mg tablet RxNorm: 546217 TAKE ONE TABLET BY MOUTH DAILY 03/19/2016 06/16/2016 Inactive amlodipine 10 mg tablet RxNorm: 156463 TAKE ONE TABLET BY MOUTH DAILY 03/19/2016 06/15/2016 Inactive Belviq 10 mg tablet RxNorm: 7791649 1 Tablet(s) PO BID 201512/21/2015 Inactive Lipitor 10 mg tablet RxNorm: 515691 1 Tablet(s) PO daily 201502/16/2016 Inactive Celebrex 200 mg capsule RxNorm: 583139 1 Capsule(s) PO daily 10/28/2016 Inactive generic ok Celebrex 200 mg capsule RxNorm: 978675 1 Capsule(s) PO daily 09/04/2015 Inactive celecoxib 200 mg capsule RxNorm: 758118 1 Capsule(s) PO daily 07/25/2015 08/31/2015 Inactive Lipitor 10 mg tablet RxNorm: 269473 1 Tablet(s) PO daily 201409/16/2015 Inactive Lipitor 10 mg tablet RxNorm: 147639 1 Tablet(s) PO daily 201405/19/2015 Inactive losartan 100 mg tablet RxNorm: 205581 1 Tablet(s) PO daily 12/201405/15/2015 Inactive lisinopril 20 mg tablet RxNorm: 227556 1 Tablet(s) PO daily 12/201407/14/2015 Inactive losartan 50 mg tablet RxNorm: 083049 1 Tablet(s) PO daily 201405/16/2015 Inactive losartan 100 mg tablet RxNorm: 121753 1 Tablet(s) PO daily 12/201405/09/2016 Inactive this ia a new RX -replaces with 50mg losartan amlodipine 10 mg tablet RxNorm: 179177 1 Tablet(s) PO daily 09/201401/07/2016 Inactive losartan 50 mg tablet RxNorm: 308473 1 Tablet(s) PO daily 201405/15/2015 Inactive lisinopril 40 mg tablet RxNorm: 210887 1 Tablet(s) PO daily 09/201405/15/2015 Inactive amlodipine 10 mg tablet RxNorm: 548663 1 Tablet(s) PO daily 09/201405/12/2015 Inactive lisinopril 40 mg tablet RxNorm: 434572 1 Tablet(s) PO daily 09/201405/12/2015 Inactive losartan 50 mg tablet RxNorm: 866580 1 Tablet(s) PO daily 201405/12/2015 Inactive gabapentin 100 mg capsule RxNorm: 326493 1 Capsule(s) PO TID No Start Date [...] 29.9 pg 11/13/2016 Cbc With Differential Ord2 [place]% 14.9 % 11/13/2016 Cbc With Differential Ord2 [...] 1.87 K/ul 11/13/2016 Cbc With Differential Ord2 [place] ABS# 0.6 K/ul 11/13/2016 Cbc With Differential Ord2 Eos ABS# 0.1 K/ul 11/13/2016 Cbc With Differential Ord2 Baso ABS# 0.0 K/ul 11/13/2016 Comp Metabolic Okp209 NA 140 mEq/L 11/13/2016 Comp Metabolic Sel157 K 4.2 mEq/L 11/13/2016 Comp Metabolic Drl101 CL 104 mEq/L 11/13/2016 Comp Metabolic Mkp830 CO2 27.0 mEq/L 11/13/2016 Comp Metabolic Ake988 ANION GAP 13 11/13/2016 Comp Metabolic Ydc836 GLUCOSE 102 mg/dL 11/13/2016 Comp Metabolic Ohp335 Creat 1.1 mg/dL 11/13/2016 Comp Metabolic Dbl928 eGFR 74 ml/min/1.73m2 11/13/2016 Comp Metabolic Nys433 BUN 21 mg/dL 11/13/2016 Comp Metabolic Dhy510 B/C Ratio 19.8 Ratio 11/13/2016 Comp Metabolic Len379 CALCIUM 9.4 mg/dL 11/13/2016 Comp Metabolic Kpo835 ALK PHOS 122 U/L 11/13/2016 Comp Metabolic Yas369 AST(SGOT) 23 U/L 11/13/2016 Comp Metabolic Drh611 ALT(SGPT) 29 U/L 11/13/2016 Comp Metabolic Mzn477 BILI T 0.6 mg/dL 11/13/2016 Comp Metabolic Yvf139 ALBUMIN 4.2 g/dL 11/13/2016 Comp Metabolic Chw944 TPRO 7.4 g/dL 11/13/2016 Comp Metabolic Oli327 GLOB 3.2 g/dL 11/13/2016 Comp Metabolic Phx446 A/G Ratio 1.3 Ratio 11/13/2016 Comp Metabolic Zxx929 Osmo 283 mOsmo 11/13/2016 Lipid Ord30 CHOL 166 mg/dL 11/13/2016 Lipid Ord30 HDL 45.0 mg/dl 11/13/2016 Lipid Ord30 TRIG 100 mg/dL 11/13/2016 Lipid Ord30 LDL 101 mg/dL 11/13/2016 Lipid Ord30 C/HDL 3.7 Ratio 11/13/2016 Total Psa Ord10 PSA 0.39 ng/mL 11/13/2016 Tsh Ord6 hTSH II 2.07 uIU/mL 11/13/2016 Comp Metabolic Oel076 NA 136 mEq/L 05/16/2015 Comp Metabolic Brj226 K 4.4 mEq/L 05/16/2015 Comp Metabolic Mxc911 CL 102 mEq/L 05/16/2015 Comp Metabolic Tfb898 CO2 26.0 mEq/L 05/16/2015 Comp Metabolic Ojz819 ANION GAP 12 05/16/2015 Comp Metabolic Jli796 GLUCOSE 92 mg/dL 05/16/2015 Comp Metabolic Mia714 Creat 1.4 mg/dL 05/16/2015 Comp Metabolic Ixh718 eGFR 53 ml/min/1.73m2 05/16/2015 Comp Metabolic Vhc417 BUN 20 mg/dL 05/16/2015 Comp Metabolic Fkj943 B/C Ratio 14.1 Ratio 05/16/2015 Comp Metabolic Ber334 CALCIUM 9.8 mg/dL 05/16/2015 Comp Metabolic Bla077 ALK PHOS 102 U/L 05/16/2015 Comp Metabolic Dle306 AST(SGOT) 21 U/L 05/16/2015 Comp Metabolic Vgy844 ALT(SGPT) 25 U/L 05/16/2015 Comp Metabolic Kst564 BILI T 0.6 mg/dL 05/16/2015 Comp Metabolic Qnb338 ALBUMIN 4.5 g/dL 05/16/2015 Comp Metabolic Tqa461 TPRO 7.7 g/dL 05/16/2015 Comp Metabolic Zzf420 GLOB 3.2 g/dL 05/16/2015 Comp Metabolic Ael642 A/G Ratio 1.4 Ratio 05/16/2015 Comp Metabolic Uii076 Osmo 274 mOsmo 05/16/2015 Cbc With Differential [...] Differential Ord2 RDW 14.7 % 05/16/2015 %Hba1C Toi390 % HbA1c 91594-5 6.0 % 05/16/2015 %Hba1C Vwy234 Gluc Ave 126 mg/dL 05/16/2015 Tsh Ord6 [...] NO PRSV 4 SAE 3 YRS+ CPT-4: 94721 06/04/2017 ADMIN INFLUENZA VIRUS VAC CPT-4: G0008 06/04/2017 PPPS, SUBSEQ VISIT CPT -4: G0439 10/31/2016 IMMUNIZATION ADMIN CPT -4: 39587 05/16/2015 IIV4 FLU VACC NO PRESERV ID Formatting Model/CDA Sections, Assigned to/Graciela West CT: [id number] CPT-4: 05723Yajwrvk 05/16/2015 Vital Signs Date Vital 06/16/2018 Blood Pressure 1: 142/82 Code : 8480-6 Blood Pressure 1: 126/68 Code: 8480-6 BMI: 39.1 Code: 55201-6 Heart Rate 1: 51 bpm Height: 5'9" SpO2: 99% Weight: 265 lbs 10/23/2017 Blood Pressure 1: 128/70 Code : 8480-6 BMI: 39.3 Code : 64432-4 Heart Rate 1 : 72 bpm Height: 5'9" SpO2: 98% Weight: 266 lbs 07/02/2017 Blood Pressure 1: 136/70 Code : 8480-6 BMI: 38.4 Code : 53765-7 Heart Rate 1 : 86 bpm Height: 5'9" SpO2: 94% Weight: 260 lbs 06/27/2017 Blood Pressure 1: 152/76 Code : 8480-6 Blood Pressure 2: 144/74 Code: 8480-6 Heart Rate 1: 85 bpm SpO2: 97% 06/04/2017 Blood Pressure 1: 152/86 Code : 8480-6 Blood Pressure 1: 150/70 Code: 8480-6 BMI: 38.5 Code: 98375-7 Heart Rate 1: 75 bpm Height: 5'9" SpO2: 97% Weight: 261 lbs 04/03/2017 Blood Pressure 1: 138/64 Code : 8480-6 BMI: 38.8 Code : 12913-8 Heart Rate 1 : 62 bpm Height: 5'9" SpO2: 95% Weight: 263 lbs 02/28/2017 Blood Pressure 1: 128/82 Code : 8480-6 BMI: 39.4 Code : 54312-8 Heart Rate 1 : 70 bpm Height: 5'9" SpO2: 95% Weight: 267 lbs 10/31/2016 Blood Pressure 1: 134/76 Code : 8480-6 BMI: 39.9 Code : 00593-4 Heart Rate 1 : 70 bpm Height: 5'9" SpO2: 98% Waist Measure (cm): 102 cm Weight: 270 lbs 10/29/2016 Blood Pressure 1: 148/80 Code : 8480-6 Blood Pressure 1: 138/78 Code: 8480-6 BMI: 39.9 Code: 77938-3 Heart Rate 1: 68 bpm Height: 5'9" SpO2: 98% Weight: 270 lbs 12/22/2015 Blood Pressure 1: 138/82 Code : 8480-6 BMI: 39.9 Code : 42115-3 Heart Rate 1 : 78 bpm Height: 5'9" SpO2: 96% Weight: 270 lbs 11/08/2015 Blood Pressure 1: 144/70 Code : 8480-6 BMI: 40.3 Code : 56125-5 Heart Rate 1 : 70 bpm Height: 5'9" SpO2: 99% Weight: 273 lbs 09/01/2015 Blood Pressure 1: 128/88 Code : 8480-6 BMI: 39.3 Code : 18500-4 Heart Rate 1 : 80 bpm Height: 5'9" SpO2: 97% Weight: 266 lbs 07/25/2015 Blood Pressure 1: 138/70 Code : 8480-6 Blood Pressure 1: 150/78 Code: 8480-6 BMI: 39.0 Code: 22444-2 Heart Rate 1: 80 bpm Height: 5'9" SpO2: 97% Weight: 264 lbs 05/16/2015 Blood Pressure 1: 132/76 Code : 8480-6 BMI: 38.0 Code : 22674-2 Heart Rate 1 : 70 bpm Height: [...] calories[ICD10: E66.09] [facility] CPT-4: 95501 06/16/2018 ([id number]) 40966 EST. PATIENT, LEVEL III Diagnosis: Essential (primary) hypertension[ICD10: I10] Diagnosis: Other obesity due to excess calories[ICD10: E66.09] [facility] CPT-4: 16486 10/23/2017 [id number] EST. PATIENT, LEVEL III Diagnosis: Essential (primary) hypertension[ICD10: I10] Diagnosis: Other obesity due to excess calories[ICD10: E66.09] Diagnosis: Obstructive sleep apnea (adult) (pediatric)[ICD10: G47.33] [facility] CPT-4: 75155 07/02/2017 ([id number]) Miscellaneous no charge Diagnosis: Essential (primary) hypertension[ICD10: I10] [facility] CPT-4: 98519 06/27/2017 ([id number]) 78305 EST. PATIENT, LEVEL IV Diagnosis: Essential (primary) hypertension[ICD10: I10] Diagnosis: Obstructive sleep apnea (adult) (pediatric)[ICD10: G47.33] Diagnosis: Encounter for immunization[ICD10: Z23] [facility] CPT-4: 60175 06/04/2017 ([id number]) Miscellaneous no charge Diagnosis: Body mass index (BMI) 38.0-38.9, adult[ICD10: Z68.38] Ban Recinos MD, [facility] CPT-4: 69627 04/03/2017 ([id number] EST. PATIENT, LEVEL IV Diagnosis: Sleep related hypoventilation in conditions classified elsewhere[ ICD10: G47.36] Diagnosis: Obstructive sleep apnea (adult) (pediatric)[ICD10: G47.33] Diagnosis: Essential (primary) hypertension[ICD10: I10] Diagnosis: Other obesity due to excess calories[ICD10: E66.09] [facility]ced Recinos MD, [facility] CPT-4: 99119 02/28/2017 ([id number]) 38651 EST. PATIENT, LEVEL IV Diagnosis: Obstructive sleep apnea (adult) (pediatric)[ICD10: G47.33] Diagnosis: Sleep related hypoventilation in conditions classified elsewhere[ ICD10: G47.36] Diagnosis: Periodic limb movement disorder[ICD10: G47.61] Diagnosis: Essential (primary) hypertension[ICD10: I10] Diagnosis: Mixed hyperlipidemia[ICD10: E78.2] [facility]ced Recinos MD, [facility] CPT-4: 82817 10/29/2016 [id number] EST. PATIENT, LEVEL III Diagnosis: Hypertensive chronic kidney disease with stage 1 through stage 4 chronic kidney disease, or unspecified chronic kidney disease[ICD10: I12.9] Diagnosis: Body mass index (BMI) 40.0-44.9, adult[ICD10: Z68.41] Merced Recinos MD, [facility] CPT-4: 09046 12/22/2015 ([id number]) 62607 EST. PATIENT, LEVEL IV Diagnosis: Hypertensive chronic kidney disease with stage 1 through stage 4 chronic kidney disease, or unspecified chronic kidney disease[ICD10: I12.9] Diagnosis: Low back pain[ICD10: M54.5] Diagnosis: Body mass index (BMI) 40.0-44.9, adult[ICD10: Z68.41] Merced Recinos MD, [facility] CPT-4: 31764 11/08/2015 ([id number]) 77213 EST. PATIENT, LEVEL III Diagnosis: Hypertensive chronic kidney disease with stage 1 through stage 4 chronic kidney disease, or unspecified chronic kidney disease[ICD10: I12.9] Diagnosis: Bilateral primary osteoarthritis of knee[ICD10: M17.0] Diagnosis: Low back pain[ICD10: M54.5] [facility] CPT- 4: 74800 09/01/2015 ([id number]) [id number] EST. PATIENT, LEVEL III Diagnosis: Hypertensive chronic kidney disease with stage 1 through stage 4 chronic kidney disease, or unspecified chronic kidney disease[ICD10: I12.9] Diagnosis: Low back pain[ICD10: M54.5] [facility] CPT- 4: 43189 07/25/2015 ([id number]) PREV VISIT NEW AGE 40-64 Diagnosis: Encounter for general adult medical examination without abnormal findings[ICD10: Z00.00] [facility] CPT-4: 50207 05/16/2015 Plan of Care Planned Activity Notes [...] in one month for weight check. 06/16/2018 Patient Education: Patient Medication Summary Completed 06/16/2018 Appointment: Nurse Visit 06/11/2018 [facility] [phone] [facility] [facility] - Annual Wellness Visit 11/08/2017 Visit Plan: [...] check. 10/23/2017 [facility] [phone] [facility] (15 min) Moderate 10/23/2017 Patient Education: [...] well. 07/02/2017 Appointment: Merced Recinos WPtel: [phone] [facility] (15 min) Moderate 07/02/2017 Patient Education: Patient [...] rested. 06/04/2017 Appointment: [facility] [phone] [facility] (15 min) Moderate 06/04/2017 Patient Education: Patient Medication Summary Completed 06/04/2017 Patient Education: Obesity Completed 06/04/2017 App[facility]: [facility] [phone] [facility] (15 min) Moderate 05/01/2017 Appointment: Nurse Visit [...] home. 02/28/2017 Appointment: [facility] [phone] [facility] (15 min) Moderate 02/28/2017 Patient Education: [...] care surrogate. 10/31/2016 Appointment: Ban Mtz WPtel: [phone] [facility] [facility] - Annual Wellness Visit 10/31/2016 Patient Education: [...] medications. 10/29/2016 Appointment: [facility] [phone] [facility] (15 min) Moderate 10/29/2016 Patient Education: Patient [...] bid 12/22/2015 Appointment[facility] [phone] [facility] (15 min) Moderate 12/22/2015 Patient Education: [...] Completed 11/08/2015 Appointment: Merced Recinos WPtel: [phone] [facility] (15 min) Moderate 09/08/2015 Visit Plan: Hypertension [...] generic celebrex 09/01/2015 Appointment: Merced Recinos WPtel: [facility] [place] (15 min) Moderate 09/01/2015 Patient Education: Patient Medication Summary Completed 09/01/2015 Appointment: Merced Recinos WPtel: [facility] [place] (15 min) Moderate 08/29/2015 Visit Plan: Hypertension - well controlled - continue with current medications, continue with no added salt diet. Pt has been encouraged to exercise daily. The pt has been advised to call the office if there are any acute concerns about change in blood pressure readings at home. Low back pain with history of back surgery in [place] - pt had fusion of lumbar spine - will order an MRI of lumbar and sacral spine - sample of viagra given in clinic today as pt feels that the cialis has not helped lately. 07/25/2015 Appointment: Merced Recinos WPtel: [facility] [place] (15 min) Moderate 07/25/2015 Patient Education: [...] 6 weeks. 05/16/2015 Appointment: Merced Recinos WPtel[facility] [place] ([place] New Patient 05/16/2015 Patient [...] pain with history of back surgery in [place] - pt had fusion of lumbar spine [...]
--- OUTSIDE RECORDS SUMMARY | 2018-12-12 06:58 | XMS REPORT | Continuity of Care Document ---
Author Organization Unknown Address Unknown Allergies Active Description Code Type Severity Reaction Onset Reported/Identified Relationship to Patient Clinical Status Yes No Known Drug Allergies [id number] Drug Allergy Unknown N/A 04/23/2011 Yes naproxen [id number] Drug Allergy Unknown N/A 11/23/2014 Medications There is no data. Problems Date Dx Coded Attending Type Code Diagnosis Diagnosed By 04/23/2011 Ot 202.80 04/23/2011 Ot 250.00 04/23/2011 Ot 401.9 04/23/2011 Ot V58.69 04/23/2011 Ot V76.51 11/23/2014 JESSICA LEE MD Ot 708.0 ALLERGIC URTICARIA 11/23/2014 JESSICA LEE MD Ot 708.9 URTICARIA NOS 11/23/2014 Ot 401.9 11/23/2014 Ot 583.9 11/26/2014 Ot 401.9 11/26/2014 Ot 583.9 08/01/2015 Ot 401.9 08/01/2015 Ot 583.9 08/09/2015 Ot 401.9 08/09/2015 Ot 583.9 09/01/2015 NANCY DANGELOP Ot M12.9 09/01/2015 NANCY DANGELO FINISH REPAIRER Ot M48.06 09/01/2015 NANCY DANGELO FINISH REPAIRER Ot Z98.1 09/02/2015 Ot 401.9 09/02/2015 Ot 583.9 09/02/2015 NANCY DANGELO FINISH REPAIRER Ot M12.9 09/02/2015 NANCY DANGELO FINISH REPAIRER Ot M48.06 09/02/2015 NANCY DANGELO FINISH REPAIRER Ot Z98.1 09/02/2015 Ot 401.9 09/02/2015 Ot 583.9 09/02/2015 NANCY DANGELOP Ot M12.9 09/02/2015 NANYC DANGELO FINISH REPAIRER Ot M48.06 09/02/2015 NANCY DANGELO Ot Z98.1 09/28/2015 SABINO ESCOBEDO MD Ot M51.16 09/28/2015 SABINO ESCOBEDO MD Ot M96.1 09/28/2015 SABINO ESCOBEDO MD Ot Z79.899 10/06/2015 SABINO ESCOBEDO MD Ot M51.16 10/06/2015 SABINO ESCOBEDO MD Ot M96.1 10/06/2015 SABINO ESCOBEDO MD Ot Z79.899 03/23/2016 SABINO ESCOBEDO MD Ot M51.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 DISC DISORDERS W RADICULO 03/23/2016 SABINO ESCOBEDO MD Ot M96.1 POSTLAMINECTOMY SYNDROME, NOT ELSEWHERE 03/23/2016 SABINO ESCOBEDO MD Ot Z79.899 OTHER RESIDENTIAL (CURRENT) DRUG THERAPY 04/03/2016 SABINO ESCOBEDO MD Ot M51.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 DISC DISORDERS W RADICULO 04/03/2016 SABINO ESCOBEDO MD Ot M96.1 POSTLAMINECTOMY SYNDROME, NOT ELSEWHERE 04/03/2016 SABINO ESCOBEDO MD Ot Z79.899 OTHER RESIDENTIAL (CURRENT) DRUG THERAPY 04/05/2016 SABINO ESCOBEDO MD Ot M51.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 DISC DISORDERS W RADICULO 04/05/2016 SABINO ESCOBEDO MD Ot M96.1 POSTLAMINECTOMY SYNDROME, NOT ELSEWHERE 04/05/2016 SABINO ESCOBEDO MD Ot Z79.899 OTHER AIRWORTHINESS SAFETY INSPECTOR (CURRENT) DRUG THERAPY 11/23/2016 MARIBEL TUCKER MD Ot G47.33 OBSTRUCTIVE SLEEP APNEA (ADULT) (PEDIATR 11/23/2016 MARIBEL TUCKER MD Ot I10 ESSENTIAL (PRIMARY) HYPERTENSION 11/27/2016 MARIBEL TUCKER MD Ot G47.33 OBSTRUCTIVE SLEEP APNEA (ADULT) (PEDIATR 11/27/2016 MARIBEL TUCKER MD Ot I10 ESSENTIAL (PRIMARY) HYPERTENSION 11/28/2016 MARIBEL TUCKER MD Ot G47.33 OBSTRUCTIVE SLEEP APNEA (ADULT) (PEDIATR 11/28/2016 MARIBEL TUCKER MD Ot I10 ESSENTIAL (PRIMARY) HYPERTENSION 12/07/2016 NANCY DANGELO Ot M12.9 ARTHROPATHY, UNSPECIFIED 12/07/2016 NANCY DANGELO Ot M48.06 SPINAL STENOSIS, LUMBAR REGION 12/07/2016 NANCY DANGELO Ot Z98.1 ARTHRODESIS STATUS 12/07/2016 SABINO ESCOBEDO MD Ot M51.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 DISC DISORDERS W RADICULO 12/07/2016 SABINO ESCOBEDO MD Ot M96.1 POSTLAMINECTOMY SYNDROME, NOT ELSEWHERE 12/07/2016 SABINO ESCOBEDO MD Ot Z79.899 OTHER RESIDENTIAL (CURRENT) DRUG THERAPY 12/07/2016 SABINO ESCOBEDO MD Ot M51.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 DISC DISORDERS W RADICULO 12/07/2016 SABINO ESCOBEDO MD, Ot M96.1 POSTLAMINECTOMY SYNDROME, NOT ELSEWHERE 12/07/2016 SABINO ESCOBEDO MD Ot Z79.899 OTHER RESIDENTIAL (CURRENT) DRUG THERAPY 12/15/2016 SABINO ESCOBEDO MD, Ot M51.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 DISC DISORDERS W RADICULO 12/15/2016 SABINO ESCOBEDO MD, Ot M96.1 POSTLAMINECTOMY SYNDROME, NOT ELSEWHERE 12/15/2016 SABINO ESCOBEDO MD Ot Z79.899 OTHER AIRWORTHINESS SAFETY INSPECTOR (CURRENT) DRUG THERAPY 05/16/2017 YESSICA EDWARDS DO Ot M47.816 SPONDYLOSIS W/O MYELOPATHY OR RADICULOPA 07/11/2017 YESSICA EDWARDS DO Ot M47.817 SPONDYLS W/O MYELOPATHY OR RADICULOPATHY 08/02/2017 YESSICA EDAWRDS DO Ot M47.817 SPONDYLS W/O MYELOPATHY OR RADICULOPATHY 11/28/2017 YESSICA EDWARDS DO Ot M54.16 RADICULOPATHY, LUMBAR REGION 11/28/2017 YESSICA EDWARDS DO Ot Z79.899 OTHER AIRWORTHINESS SAFETY INSPECTOR (CURRENT) DRUG THERAPY 11/29/2017 YESSICA EDWARDS DO Ot M54.16 RADICULOPATHY, LUMBAR REGION 11/29/2017 YESSICA EDWARDS DO Ot Z79.899 OTHER RESIDENTIAL (CURRENT) DRUG THERAPY 05/19/2018 NANCY DANGELO Ot M12.9 ARTHROPATHY, UNSPECIFIED 05/19/2018 NANCY DANGELO Ot M48.06 SPINAL STENOSIS, LUMBAR REGION 05/19/2018 NANCY DANGELO Ot Z98.1 ARTHRODESIS STATUS 05/19/2018 SABINO ESCOBEDO MD Ot M51.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 DISC DISORDERS W RADICULO 05/19/2018 SABINO ESCOBEDO MD Ot M96.1 POSTLAMINECTOMY SYNDROME, NOT ELSEWHERE 05/19/2018 FANNY PINEDA, SABINO Kramer Ot Z79.899 OTHER RESIDENTIAL (CURRENT) DRUG THERAPY 05/20/2018 HEARNDON YESSICA BUNDY Ot M46.86 OTHER SPECIFIED INFLAMMATORY SPONDYLOPAT 05/20/2018 HEARNDON DOYESSICA L Ot M47.22 OTHER SPONDYLOSIS WITH RADICULOPATHY, CE 05/20/2018 HEARNDON YESSICA BUNDY L Ot M48.061 SPINAL STENOSIS, LUMBAR REGION WITHOUT N 05/20/2018 HEARNDON YESSICA BUNDY Ot M51.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 DISC DISORDERS W RADICULO 05/20/2018 HEARNDON YESSICA BUNDY L Ot M99.73 CONN TISS AND DISC STENOS OF INTVRT FORA 05/20/2018 DEJANON YESSICA BUNDY Ot Z98.1 ARTHRODESIS STATUS 06/10/2018 HEARNDON YESSICA BUNDY L Ot M46.86 OTHER SPECIFIED INFLAMMATORY SPONDYLOPAT 06/10/2018 HEARNDON DOYESSICA L Ot M47.22 OTHER SPONDYLOSIS WITH RADICULOPATHY, CE 06/10/2018 HEARNDON DOYESSICA L Ot M48.061 SPINAL STENOSIS, LUMBAR REGION WITHOUT N 06/10/2018 HEARNDON YESSICA BUNDY L Ot M51.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 DISC DISORDERS W RADICULO 06/10/2018 HEARNDON YESSICA BUNDY L Ot M99.73 CONN TISS AND DISC STENOS OF INTVRT FORA 06/10/2018 HEARNDON YESSICA BUNDY L Ot Z98.1 ARTHRODESIS STATUS 06/26/2018 HEARNDON YESSICA BUNDY L Ot M46.86 OTHER SPECIFIED INFLAMMATORY SPONDYLOPAT 06/26/2018 HEARNDON YESSICA BUNDY L Ot M47.22 OTHER SPONDYLOSIS WITH RADICULOPATHY, CE 06/26/2018 HEARNDON YESSICA BUNDY L Ot M48.061 SPINAL STENOSIS, LUMBAR REGION WITHOUT N 06/26/2018 HEARNDON YESSICA BUNDY L Ot M51.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 Results Test Result Range Pathologist review of blood test by comment - 10/03/18 10:50 Blood leukocytes automated count (number/volume) 7.1 10*3/uL 4.3-11.0 Blood erythrocytes automated count (number/volume) 5.00 10*6/uL 4.35-5.85 Venous blood hemoglobin measurement (mass/volume) 14.8 g/dL 13.3-17.7 Blood hematocrit (volume fraction) 46 % 40-54 Automated erythrocyte mean corpuscular volume 91 [foz_us] 80-99 Automated erythrocyte mean corpuscular hemoglobin (mass per erythrocyte) 30 pg 25-34 Automated erythrocyte mean corpuscular hemoglobin concentration measurement ( mass/volume) 32 g/dL 32-36 Automated erythrocyte distribution width ratio 14.1 % 10.0-14.5 Automated blood platelet count (count/volume) 265 10*3/uL 130-400 Automated blood platelet mean volume measurement 10.2 [foz_us] 7.4-10.4 Automated blood neutrophils/100 leukocytes 57 % 42-75 Automated blood lymphocytes/100 leukocytes 33 % 12-44 Blood monocytes/100 leukocytes 11 % NRG Automated blood eosinophils/100 leukocytes 1 % 0-10 Automated blood basophils/100 leukocytes 0 % 0-10 Blood neutrophils automated count (number/volume) 4.1 10*3 1.8-7.8 Blood lymphocytes automated count (number/volume) 2.3 10*3 1.0-4.0 Blood monocytes automated count (number/volume) 0.7 10*3 0.0-1.0 Automated eosinophil count 0.0 10*3/uL 0.0-0.3 Automated blood basophil count (count/volume) 0.0 10*3/uL 0.0-0.1 Manual blood segmented neutrophils/100 leukocytes 49 % NRG Blood band neutrophils/100 leukocytes 0 % NRG Manual blood lymphocytes/100 leukocytes 39 % NRG Manual eosinophils/100 leukocytes in nose 1 % NRG Manual blood basophils/100 leukocytes 0 % NRG Blood erythrocyte morphology finding identification NORMAL NRG Blood reticulocytes count (number/volume) 56 10*9/L 24- 90 Blood reticulocytes/100 erythrocytes 1.11 % 0.50-2.40 Encounters ACCT No. Visit Date/Time Discharge Status Pt. Type Provider Facility Loc./Unit Complaint [id number] 10/03/2018 10:37:00 10/03/2018 23:59:59 CLS Outpatient DARIA JOHN Nelson ALEE [facility] LAB LOW WBC COUNT [id number] 05/19/2018 07:16:00 05/19/2018 23:59:59 CLS Outpatient YESSICA EDWARDS DO [facility] RAD LUMBAR RADICULOPATHY [id number] 11/28/2017 13:02:00 11/28/2017 14:19:00 DIS Outpatient YESSICA EDWARDS DO [facility] CARD LUMBAR RADICULOPATHY M54.16 [id number] 07/11/2017 12:34:00 07/11/2017 13:32:00 DIS Outpatient YESSICA EDWARDS DO [facility] CARD M47.817 [id number] 05/16/2017 12:45:00 05/16/2017 14:03:00 DIS Outpatient YESSICA EDWARDS DO [facility] CARD LUMBAR RADICULOPATHY [id number] 12/07/2016 07:26:00 12/07/2016 08:12:00 DIS Outpatient SABINO ESCOBEDO MD [facility] CARD DISC DISORDER [id number] 11/22/2016 20:00:00 11/23/2016 06:15:00 DIS Outpatient MARIBEL TUCKER MD [facility] SLEEP ZENOBIA,HTN,MORNING HEADACHE [id number] 03/23/2016 13:01:00 03/23/2016 14:51:00 DIS Outpatient SABINO ESCOBEDO MD [facility] CARD DISC DISORDER [id number] 09/02/2015 09:49:00 09/02/2015 23:59:59 CLS Outpatient FANNY PINEDA, SABINO Kramer [facility] CARD DISC DISORDER W/ RADICULOPATHY LUMBAR [id number] 08/09/2015 07:46:00 08/09/2015 23:59:59 CLS Outpatient NANCY DANGELO [facility] RAD LOW BACK PAIN,POST FUSION LUMBAR SPINE [id number] 11/23/2014 14:02:00 11/23/2014 15:15:00 DIS Emergency ROSA PINEDA, JESSICA Garibay [facility] ER MINA,SOA [id number] 12/12/2018 08:30:00 PEN Preadsushil BRANNON MD, LIZ Thurman [facility] YAG [id number] 11/23/2014 15:09:00 Document Registration [id number] 04/23/2011 10:43:00 Document Registration [id number] 11/09/2010 14:53:00 Document Registration [email or web address] 11/24/2014 06:26:19 ACT Document Registration
[2018-12-12] MEDS: TETRACAINE 0.5% OPHTH SOLN 4 ML BTL (SINGLE DOSE ONLY) OU PRN ×3 (07:08→07:16)
[2018-12-12] MEDS: TROPICAMIDE 1% OPH SOLN (MYDRIACYL) 15 ML BTL OU PRN ×3 (07:08→07:16)
[2018-12-12] MEDS: PHENYLEPHRINE 10% OPHTH (NEO-SYN) 5 ML BTL OU PRN ×3 (07:08→07:16)
--- NOTE | 2018-12-12 07:24 | Ophthalmologist Pre-Op Note ---
Pre-Operative Progress Note H&P Reviewed The H&P was reviewed, patient examined and no changes noted. Date H&P Reviewed: December 12, 2018 Time H&P Reviewed: 07:24 Pre-Op Dx Secondary Cataract, Left Eye LIZ BRANNON MD December 12, 2018 07:24
[2018-12-12 07:52] VITALS: BP 125/82
--- NOTE | 2018-12-12 07:58 | Ophthalmology Operative Report ---
YAG Capsulotomy PREOPERATIVE DIAGNOSIS: Secondary Cataract Left Eye POSTOPERATIVE DIAGNOSIS: Secondary Cataract Left Eye PROCEDURE: YAG Capsulotomy, left eye SURGEON: Soren Brannon ANESTHESIA: Topical anesthesia COMPLICATIONS: None ESTIMATED BLOOD LOSS: Minimal DESCRIPTION OF PROCEDURE: After proper informed consent was obtained, the patient's, a 68 male left eye received one drop of Tropicamide and one drop of Tetracaine. The patient was then placed at the YAG laser and using a power of [5.0 ] millijoules and [19 ] bursts were used to fashion a central capsulotomy. The patient tolerated the procedure well without complications and the patient's pressure was [12 ] shortly after the laser. SOREN BRANNON MD December 12, 2018 07:58
== END 2018-12-12 07:52 | disposition home or self-care (01) ==
LOC: SDC 06:47
PROVIDERS: ATTEND Specialist
DX: H26.492 Other secondary cataract, left eye (principal); E78.00 Pure hypercholesterolemia, unspecified; Z87.891 Personal history of nicotine dependence; Z79.899 Other long term (current) drug therapy

== ENCOUNTER → 2020-07-11 | Outpatient (CLI) | payer MEDICARE ==
[~2020-07-11] MED LIST changes: +AMLO-251 PO; -AMLO10TA7 PO
== END ==
LOC: LABNPT 05:11
PROVIDERS: ATTEND Orthopaedic Surgery
DX: Z01.812 Encounter for preprocedural laboratory examination (principal); Z20.828 Contact with and (suspected) exposure to other viral communicable diseases
CPT/HCPCS: 87635

== ENCOUNTER → 2020-07-19 | Outpatient (CLI) | payer MEDICARE ==
--- NOTE | 2020-07-19 16:30 | Diagnostic Imaging Report ---
PROCEDURE: US left lower extremity venous. TECHNIQUE: Multiple Real-time grayscale images were obtained over the left lower extremity in various projections. Additional duplex Doppler and color Doppler images were also obtained. INDICATION: Leg pain and swelling. COMPARISON: There are no prior studies available for comparison. FINDINGS: There is generally good blood flow and compressibility at all levels. There is no sign of a deep venous thrombosis. IMPRESSION: There is no evidence for deep venous thrombosis in the left lower extremity. Dictated by: Dictated on workstation # [id number]
== END ==
LOC: RAD 15:27
PROVIDERS: ATTEND Orthopaedic Surgery
DX: M79.662 Pain in left lower leg (principal); M79.89 Other specified soft tissue disorders

== ENCOUNTER → 2021-09-11 | Outpatient (RCR) | payer MEDICARE | END | disposition home or self-care (01) | PROVIDERS: ATTEND Physical Medicine & Rehabilitation | DX: M48.062 Spinal stenosis, lumbar region with neurogenic claudication (principal); M51.36 Other intervertebral disc degeneration, lumbar region; M21.371 Foot drop, right foot; M47.816 Spondylosis without myelopathy or radiculopathy, lumbar region ==